=== PATIENT | male | born 1970 | race Caucasian/White ===

== ENCOUNTER 2016-09-14 22:03 | Observation (INO) | payer MEDICARE, OTHER ==
[2016-09-14] MEDS ORDERED: SODIUM CHLORIDE 0.9% 1,000 ML IV STA (22:44)
[2016-09-14] MEDS ORDERED: NITROGLYCERIN SL TABS 0.4 MG TAB SUBLINGUAL STA (22:44)
[2016-09-14] MEDS ORDERED: ASPIRIN 81 MG CHEW PO STA (22:44)
--- NOTE | 2016-09-14 22:48 | ED ---
Chest Pain HPI - General Chief Complaint: Chest Pain Stated Complaint: Chest Pain/BP up/ HR up Time Seen by Provider: 09/14/16 22:17 Source: patient, family, RN notes reviewed Mode of arrival: wheelchair Limitations: no limitations - History of Present Illness Initial Comments: This is a 46-year-old male with a history of hypertension who came in for evaluation for chest pain. He states that 6 days ago he had an episode where he woke up from sleep with pain between shoulder blades. He was seen by his doctor has some modification was medication. He states he had recurrence of this again today chest pain midsternal rate into his left arm and jaw and to his back between her shoulder blades. He states it was dull pressure-like. He states it was 8/10 in severity currently is 5-6/10. Some diaphoresis. No other complaints at this time no cough or phlegm production he states the pain he had last week it did increase with breathing tonight it does not change. He is a smoker he is down from one has to back today to 5 cigarettes a day we did discuss the benefits of stopping altogether. MD Complaint: chest pain, other - Related Data Home Medications Medication Instructions Recorded Confirmed Esomeprazole Magnesium 20 mg PO DAILY 11/07/14 09/14/16 buPROPion [Wellbutrin] 100 mg PO TID 11/07/14 09/14/16 Ibuprofen [Motrin] 600 mg PO Q8HR PRN 02/27/15 09/14/16 Febuxostat [Uloric] 40 mg PO DAILY 05/07/15 09/14/16 Asenapine Maleate [Saphris] 5 mg SUBLINGUAL HS 09/14/16 09/14/16 Allergies Allergy/AdvReac Type Severity Reaction Status Date / Time sertraline HCl [From Zoloft] Allergy Unknown Anaphylaxis Verified 09/14/16 23:20 fluoxetine HCl [From Prozac] AdvReac Intermediate disoriented, Verified 23:20 verbally violent Review of Systems ROS Statement: Those systems with pertinent positive or pertinent negative responses have been documented in the HPI. ROS Other: All systems not noted in ROS Statement are negative. EKG Findings - EKG Results: EKG: interpreted by DAKOTAH, sinus rhythm (Sinus rhythm rate 96 SC interval 152 QRS duration 98 daily since QTC 338/427 evidence a left exodeviation no acute ST -T wave elevation or depression seen at this time.) Past Medical History Past Medical History: Cancer, COPD, GERD/Reflux, Hyperlipidemia, Hypertension, Musculoskeletal Disorder, Osteoarthritis (OA), Sleep Apnea/CPAP/BIPAP Additional Past Medical History / Comment(s): s/p lumbar laminectomy decompression with fusion L4-S1. Other HX: coronary artery spasms, gout,pain in back,dizziness, hx. H pylori, hiatal hernia, skin cancer, fatty liver, doens' t use CPAP, occasional hand tremors, edentulous, occasional nausea. History of Any Multi-Drug Resistant Organisms: None Reported Past Surgical History: Back Surgery, Orthopedic Surgery Additional Past Surgical History / Comment(s): 05/15/15 Lumbar laminectomy with decompression and fusion L4-S1 with cell saver. 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 Past Drug Use History: None Reported - Past Family History Mother Family Medical History: Cancer, Deep Vein Thrombosis (DVT), Pulmonary Embolus Father Family Medical History: Cancer General Exam - General Exam Comments Initial Comments: This is a well-developed well-nourished awake alert oriented 3 male Limitations: no limitations General appearance: alert, anxious Head exam: Present: atraumatic, normocephalic, normal inspection Eye exam: Present: normal appearance, PERRL, EOMI. Absent: scleral icterus, conjunctival injection, periorbital swelling ENT exam: Present: normal exam, mucous membranes moist Neck exam: Present: normal inspection. Absent: tenderness, meningismus, lymphadenopathy Respiratory exam: Present: normal lung sounds bilaterally. Absent: respiratory distress, wheezes, rales, rhonchi, stridor Cardiovascular Exam: Present: normal rhythm, tachycardia, normal heart sounds. Absent: systolic murmur, diastolic murmur, rubs, gallop, clicks GI/Abdominal exam: Present: soft, normal bowel sounds. Absent: distended, tenderness, guarding, rebound, rigid Extremities exam: Present: normal inspection, full ROM, normal capillary refill. Absent: tenderness, pedal edema, joint swelling, calf tenderness Back exam: Present: normal inspection Neurological exam: Present: alert, oriented X3, CN II-XII intact Psychiatric exam: Present: normal affect, normal mood Skin exam: Present: warm, intact, normal color, diaphoretic. Absent: rash Course Vital Signs 09/14/16 09/14/16 09/14/16 22:13 22:39 23:39 Temperature 97.3 F L Pulse Rate 106 H 88 77 Respiratory 18 18 18 Rate Blood Pressure 133/83 145/88 123/84 O2 Sat by Pulse 98 98 97 Oximetry - Reevaluation(s) Reevaluation #1: 09/15/16 00:19 Reevaluation patient revealed he did get marked improvement with this chest pain after administration of medication. Chest Pain MDM - MDM Review the x-ray shows no acute findings. I did discuss the findings with the patient's family is feeling improved he will be admitted I did discuss case with Dr. Muro. Critical Care Time Critical Care Time: Yes Critical Care Time: 32 minutes of critical care time which includes initial monitoring of the patient with history physical lab and x-rays reevaluation the patient's response to therapy. Discussed with the patient family members discuss with the patient regarding smoking cessation. Discussion with the admitting physician and admission orders and documentation of the above. Disposition Clinical Impression: Unstable angina pectoris Disposition: ADMITTED IP TO THIS [facility] Condition: Stable
[2016-09-14 23:10] LABS: Basophils # (A) 0.1 k/uL (0-0.2); Basophils % (A) 1 %; CHCM 36.6; Eosinophils # (A) 0.2 k/uL (0-0.7); Eosinophils % (A) 2 %; HCT 42.1 % (39.0-53.0); HDW 2.92; HGB 14.7 gm/dL (13.0-17.5); Luc # (Auto) 0.09; Luc % (Auto) 1; Lymphocytes # (A) 2.1 k/uL (1.0-4.8); Lymphocytes % (A) 30 %; MCH 29.7 pg (25.0-35.0); MCV 85.1 fL (80.0-100.0); Mean Platelet Volume 8.8; Monocytes # (A) 0.4 k/uL (0-1.0); Monocytes % (A) 6 %; Neutrophils # (A) 4.2 k/uL (1.3-7.7); Neutrophils % (A) 59 %; RBC 4.95 m/uL (4.30-5.90); RDW 13.2 % (11.5-15.5); WBC 7.2 k/uL (3.8-10.6); WBC (Perox) 7.05
[2016-09-14 23:20] LABS: ALT 106 U/L (21-72); AST 51 U/L (17-59); Alkaline Phosphatase 151 U/L (38-126); Amylase <30 U/L (30-110); Anion Gap 13 mmol/L; Blood Urea Nitrogen 12 mg/dL (9-20); Calcium 9.5 mg/dL (8.4-10.2); Carbon Dioxide 23 mmol/L (22-30); Chloride 106 mmol/L (98-107); Glucose 107 mg/dL (74-99); Non-African American GFR(MDRD) >60 (>60 ml/min/1.73 sqM); Potassium 4.1 mmol/L (3.5-5.1); Sodium 142 mmol/L (137-145); Total Bilirubin 0.4 mg/dL (0.2-1.3); Total Protein 7.2 g/dL (6.3-8.2)
[2016-09-14 23:24] LABS: INR 0.9 (<1.1); Partial Thromboplastin Time 25.5 sec (22.0-30.0); Prothrombin Time 9.7 sec (9.0-12.0)
[2016-09-14 23:31] LABS: Creatine Kinase 61 U/L (55-170)
[2016-09-14] MEDS ORDERED: NITROGLYCERIN OINT 1 INCH/GM PACKET TOPICAL STA (23:35)
[2016-09-14] MEDS ORDERED: HEPARIN SODIUM,PORCINE 5,000 UNIT/ML 1 ML VIAL IV ONE (23:35)
[2016-09-14 23:43] LABS: Creatine Kinase MB 0.4 ng/mL (0.0-2.4); Troponin I <0.012 ng/mL (0.000-0.034)
[2016-09-14] MEDS ORDERED: HEPARIN SODIUM,PORCINE/D5W PMX 25,000 UNIT in DEXTROSE/WATER 1 500ML.BAG IV SCH (23:45)
--- NOTE | 2016-09-15 00:18 | XR ---
EXAMINATION TYPE: XR chest 2V DATE OF EXAM: 09/14/2016 11:21 PM COMPARISON: 11/07/2014 HISTORY: Chest pain hypertension tachycardia TECHNIQUE: Frontal and lateral views of the chest are obtained. FINDINGS: Mild pulmonary vascular congestion is suggested. There is no focal air space opacity, pleural effusion, or pneumothorax seen. The cardiac silhouette size is within normal limits. The osseous structures are intact. IMPRESSION: 1. Mild pulmonary vascular congestion. 2. No focal pneumonia.
[2016-09-15] MEDS ORDERED: NITROGLYCERIN SL TABS 0.4 MG TAB SUBLINGUAL PRN (00:20)
[2016-09-15] MEDS ORDERED: NICOTINE 14MG/24HR PATCH TRANSDERM STA (00:23)
[2016-09-15] MEDS ORDERED: SODIUM CHLORIDE 0.9% 1,000 ML IV SCH (00:30)
[2016-09-15] MEDS ORDERED: ONDANSETRON 4 MG/2 ML VIAL IVP PRN (00:49)
[2016-09-15 01:30] VITALS: BMI 24.3
[2016-09-15] MEDS: MORPHINE SULFATE 4 MG/ML SYRINGE IVP PRN ×2 (01:39→05:09)
[2016-09-15] MEDS ORDERED: LORazepam 1 MG TAB PO PRN (01:54)
[2016-09-15] MEDS ORDERED: ACETAMINOPHEN TAB 325 MG TAB PO PRN (03:36)
[2016-09-15] MEDS: NITROGLYCERIN OINT 1 INCH/GM PACKET TOPICAL SCH ×2 (05:19→17:05)
[2016-09-15 07:16] LABS: Creatine Kinase 50 U/L (55-170)
[2016-09-15 07:29] LABS: Creatine Kinase MB 0.5 ng/mL (0.0-2.4); Troponin I <0.012 ng/mL (0.000-0.034)
[2016-09-15 08:01] VITALS: RESP 18
--- NOTE | 2016-09-15 08:57 | P.HPIM ---
History of Present Illness H&P Date: 09/15/16 Chief Complaint: Substernal chest pressure. This is a 46-year-old white male who is a long-term smoker and has an underlying history of degenerative joint disease. Patient states after being started on lisinopril and Lipitor by cardiology last week, he had significant back pain in the middle night and has not tolerated this medication well. He is now stating significant chest pressure. He has been to the ER to evenings in a row. When a long discussion regarding smoking cessation. However, he is now admitted for significant chest pressure. No radiation of pain but the pain is clearly evident when it occurs at a high level. Does not complain of shortness of breath no nausea or stated diaphoresis. The patient has an underlying history of chronic DJD of the lumbar spine and has had laminectomy twice. Family history significant for premature heart disease in his parents and 1 sister. Review of Systems Constitutional: Denies chills, Denies fatigue, Denies fever Ears, nose, mouth and throat: Denies headache, Denies sore throat Cardiovascular: Reports chest pain, Denies leg edema Respiratory: Denies cough Gastrointestinal: Denies abdominal pain, Denies diarrhea, Denies nausea, Denies vomiting Musculoskeletal: Denies myalgias Integumentary: Denies pruritus, Denies rash Neurological: Denies numbness, Denies weakness Past Medical History Past Medical History: Cancer, COPD, GERD/Reflux, Hyperlipidemia, Hypertension, Musculoskeletal Disorder, Osteoarthritis (OA), Sleep Apnea/CPAP/BIPAP Additional Past Medical History / Comment(s): s/p lumbar laminectomy decompression with fusion L4-S1. Other HX: coronary artery spasms, gout,pain in back,dizziness, hx. H pylori, hiatal hernia, skin cancer, fatty liver, doens' t use CPAP, occasional hand tremors, edentulous, occasional nausea. History of Any Multi-Drug Resistant Organisms: None Reported Past Surgical History: Back Surgery, Orthopedic Surgery Additional Past Surgical History / Comment(s): 05/15/15 Lumbar laminectomy with decompression and fusion L4-S1 with cell saver. 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 Past Drug Use History: None Reported - Past Family History Mother Family Medical History: Cancer, Deep Vein Thrombosis (DVT), Pulmonary Embolus Additional Family Medical History / Comment(s): Skin ca Father Family Medical History: Cancer Additional Family Medical History / Comment(s): Bone CA Medications and Allergies Home Medications Medication Instructions Recorded Confirmed Type RX: Esomeprazole Magnesium 20 mg PO DAILY 11/07/14 09/15/16 History buPROPion [Wellbutrin] 100 mg PO TID 11/07/14 09/15/16 History Ibuprofen [Motrin] 600 mg PO Q8HR PRN 02/27/15 09/15/16 History Febuxostat [Uloric] 40 mg PO DAILY 05/07/15 09/15/16 History Asenapine Maleate [Saphris] 5 mg SUBLINGUAL HS 09/14/16 09/15/16 History Allergies Allergy/AdvReac Type Severity Reaction Status Date / Time sertraline HCl [From Zoloft] Allergy Unknown Anaphylaxis Verified 09/15/16 01:17 fluoxetine HCl [From Prozac] AdvReac Intermediate disoriented, Verified 01:17 verbally violent Physical Exam Vitals: Vital Signs Temp Pulse Pulse Resp BP BP Pulse Ox 09/15/16 08:00 98.4 F 76 18 149/92 96 09/15/16 04:00 97.7 F 72 16 140/84 96 09/15/16 03:42 16 09/15/16 02:10 16 09/15/16 01:20 97.9 F 70 16 126/68 96 09/15/16 00:39 97.5 F L 73 18 117/78 97 Intake and Output 09/14/16 09/15/16 09/15/16 22:59 06:59 14:59 Other: # Voids 2 Weight 72.5 kg - Constitutional General appearance: thin - EENT Eyes: EOMI - Neck Neck: no lymphadenopathy - Cardiovascular Rhythm: regular Heart sounds: normal: S1, S2 - Gastrointestinal General gastrointestinal: soft, no tenderness - Neurologic Neurologic: CNII-XII intact, focal deficits - Musculoskeletal Musculoskeletal: gait normal - Psychiatric Psychiatric: A&O x's 3, appropriate affect Results CBC & Chem 7: 09/14/16 22:40 09/14/16 22:40 Labs: Abnormal Lab Results - Last 24 Hours (Table) 09/15/16 09/15/16 Range/Units 06:35 06:35 APTT 31.2 H (22.0-30.0) sec Total Creatine Kinase 50 L (55-170) U/L Thrombosis Risk Factor Assmnt - Choose All That Apply Each Factor Represents 1 point: Age 41-60 years Thrombosis Risk Factor Assessment Total Risk Factor Score: 1 Thrombosis Risk Factor Assessment Level: Low Risk Assessment and Plan (1) Tobacco abuse Status: Acute (2) Hypertension Status: Acute (3) Unstable angina pectoris Status: Acute (4) Disc degeneration, lumbar Status: Acute Plan: 1. Rule out myocardial infarction. 2. Smoking cessation discussed at length with the patient. 3. Restart home medications. 4. History of reflux esophagitis 5. Cardiology consulted. Probable stress testing done later today. 6. Reconcile medications otherwise. Time with Patient: Less than 30
[2016-09-15] MEDS ORDERED: ALLOPURINOL 100 MG TAB PO SCH (09:00)
[2016-09-15] MEDS ORDERED: PANTOPRAZOLE 40 MG TABLET PO SCH (09:00)
[2016-09-15] MEDS ORDERED: DOBUTamine DRIP for NUC MED 500 MG in DEXTROSE/WATER 1 250ML.BAG IV ONE (09:21)
[2016-09-15] MEDS ORDERED: LISINOPRIL 10 MG TAB PO STA (09:23)
--- NOTE | 2016-09-15 09:44 | CONS ---
DATE OF CONSULTATION: Mr. Newell is a 46-year-old male patient who has had recurrent mid-back and anterior chest discomfort repeatedly for the last one week. He has been in the ER several times, finally he was admitted and so far his cardiac enzymes x2 have been normal. His ECG does not show any clear-cut evidence for ischemia. He continues to have discomfort in the upper mid-back and anterior chest. He was recently prescribed lisinopril for hypertension and also atorvastatin. REVIEW OF SYSTEMS: No fever, chills, rigors. No cough or expectoration. No nausea, vomiting and diarrhea. No hematuria, or dysuria. No strokes or seizures. No skin lesions or musculoskeletal complaints. Allergies to SERTRALINE and FLUOXETINE. His medications at home are proton pump inhibitor, Bupropion. ( ) dose of lisinopril and atorvastatin. On examination, his blood pressure is 149/92 mmHg and the pulse rate is in the 70s. He is afebrile. Head and neck examination are normal. Heart sounds are normal. Lungs are clear to auscultation. Extremities are warm. No edema. IMPRESSION: 1. Atypical chest discomfort, recurrent with normal cardiac enzymes. 2. Hypertension. 3. Dyslipidemia. SUGGEST: Start lisinopril 10 mg p.o. daily. Hold atorvastatin for now and dobutamine stress echo. His chest x-ray did not show any evidence for mediastinal widening. If his stress test was normal and he continues to have recurrent chest discomfort, one should consider a CT of the chest. I have also advised him to take lisinopril only and hold off on atorvastatin just to make sure he does not have any unusual reactions from lisinopril. In followup, he will see Dr. Idalia Ceja.
[2016-09-15 11:44] VITALS: BP 142/91; PULSE 98; TEMP 97.8
[2016-09-15 11:55] LABS: Creatine Kinase 54 U/L (55-170)
--- NOTE | 2016-09-15 11:56 | ECHOS ---
DATE OF SERVICE: 09/15/2015 AGE: 46Y SEX: M HT: 68" WT: 159 lbs. Protocol Yasmany: Others: Dobutamine Stress Echo Stage: 4 Dur. of Exercise: 11 minutes *Heart Rate Blood Pressure *Rest: 65 Rest: 126/70 * *Max. Achieved: 150 Maximum BP: 163/85 85% PMHR: 148 100% PMHR: 174 *METS: - INDICATIONS: Unstable angina. MEDICATIONS: Lisinopril, Ibuprofen, esomeprazole. The test is being done to evaluate cardiac status. STRESS DATA: Baseline EKG showed a sinus rhythm with normal OR interval and QRS duration. Blood pressure at rest is 126/70 with a pulse rate of 65. A standard dose of dobutamine was initiated and titrated to maximum of 40 mcg achieving a maximum heart rate of 150 with blood pressure of 163/85. At peak infusion, patient developed brief episodes of nonsustained V. tach which resolved with discontinuation of dobutamine. Patient did not experience any chest pain. ECHO DATA: Baseline echo images show normal wall motion and thickening. Echo images taken at low-dose and high dose of dobutamine showed augmentation of the wall motion and thickening in all the segments. FINAL IMPRESSION: 1. Negative dobutamine stress test. 2. Negative dobutamine stress echo. 3. Ventricular arrhythmias induced by dobutamine. This resolved after discontinuation of dobutamine.
[2016-09-15 12:09] LABS: Creatine Kinase MB 0.8 ng/mL (0.0-2.4); Troponin I <0.012 ng/mL (0.000-0.034)
[2016-09-15] MEDS ORDERED: RX INFO: IV CONTRAST WAS GIVEN 1 EACH MISC MISCELLANE PRN (14:12)
--- NOTE | 2016-09-15 15:18 | CT ---
EXAMINATION TYPE: CT angio chest DATE OF EXAM: 09/15/2016 3:02 PM COMPARISON: CT chest March 12, 2014 HISTORY: Chest pain and shortness of breath. Rule out aortic dissection. CT DLP: 364.60 mGycm. Automated Exposure Control for Dose Reduction was Utilized. CONTRAST: CTA scan of the thorax is performed without and with IV Contrast, patient injected with 100 mL of Omn ipaque 350, pulmonary embolism protocol. Three-D reconstructed images are created on independent work station and reviewed. FINDINGS: LUNGS: Dependent atelectatic change is seen in both lower lobes. There is additional linear scarring and/or atelectasis in both lung bases, left greater than right. No concerning parenchymal nodule or m ass is present bilaterally. No pleural effusion or pneumothorax is seen bilaterally. Tracheobronchial tree is patent. MEDIASTINUM: There is satisfactory enhancement of the pulmonary artery and its branches, there is no CT evidence for pulmonary embolism. There are no greater than 1 cm hilar or mediastinal lymph nodes. No significant pericardial effusion is seen. There is mild cardiomegaly. No linear hypodensity to suggest aortic dissection is seen. Ascending aorta measures up to 3.1 cm in diameter. Ascending thora cic aorta measures 2.2 cm in diameter. OTHER: There is partial visualization of somewhat prominent spleen. Slight underlying scoliotic curva ture is present. There is mild multilevel spurring in the thoracic spine. Small degree of bilateral g ynecomastia is felt present on axial image 30 IMPRESSION: 1. No CTA evidence for aortic aneurysm or dissection. 2. Mild cardiomegaly without suspicious acute pulmonary process. 3. Cannot exclude splenomegaly, consider ultrasound follow-up based on clinical and physical exam cor relation.
[2016-09-15] MEDS ORDERED: SODIUM CHLORIDE 0.9% 500 ML IV ONE (16:29)
[2016-09-15] MEDS: buPROPion 100 MG TAB PO SCH (17:05)
[2016-09-15] MEDS ORDERED: ASENAPINE 5 MG TAB SUBLINGUAL SCH (21:00)
[2016-09-16] MEDS ORDERED: ASPIRIN 325 MG TAB PO SCH (09:00)
--- NOTE | 2016-11-07 21:39 | P.DS ---
Providers Date of admission: 09/15/16 00:20 Attending physician: Lang Muro Primary care physician: Lang Muro - Discharge Diagnosis(es) (1) Tobacco abuse Status: Acute (2) Hypertension Status: Acute (3) Unstable angina pectoris Status: Acute (4) Disc degeneration, lumbar Status: Acute Hospital Course: The patient is a 46-year-old white male essentially admitted for chest pain. The patient had appropriate stress testing which did not show significant issue. Cardiology was consulted and he was appropriately discharged in stable condition to follow up with me in about 5-7 days. Patient Condition at Discharge: Stable Plan - Discharge Summary Discharge Medication List Esomeprazole Magnesium 20 mg PO DAILY 11/07/14 [History] buPROPion [Wellbutrin] 100 mg PO TID 11/07/14 [History] Ibuprofen [Motrin] 600 mg PO Q8HR PRN 02/27/15 [History] Febuxostat [Uloric] 40 mg PO DAILY 05/07/15 [History] Asenapine Maleate [Saphris] 5 mg SUBLINGUAL HS 09/14/16 [History] Follow up Appointment(s)/Referral(s): Lang Muro MD [Primary Care Provider] - 1 Week Patient Instructions/Handouts: Chest Pain (DC) Discharge Disposition: HOME SELF-CARE
== END 2016-09-15 17:08 | disposition home or self-care (01) ==
LOC: EC 22:03 → 3OBS 09-15 00:20
PROVIDERS: ADMIT Family Medicine; ATTEND Family Medicine
DX: R07.89 Other chest pain (principal); I10 Essential (primary) hypertension; E78.5 Hyperlipidemia, unspecified; F20.9 Schizophrenia, unspecified; F32.9 Major depressive disorder, single episode, unspecified; F41.9 Anxiety disorder, unspecified; G47.30 Sleep apnea, unspecified; I20.0 Unstable angina; J44.9 Chronic obstructive pulmonary disease, unspecified; K21.9 Gastro-esophageal reflux disease without esophagitis; M10.9 Gout, unspecified; M51.36 Other intervertebral disc degeneration, lumbar region; Z91.19 Patient's noncompliance with other medical treatment and regimen; F17.210 Nicotine dependence, cigarettes, uncomplicated; Z88.8 Allergy status to other drugs, medicaments and biological substances; Z79.899 Other long term (current) drug therapy; Z79.1 Long term (current) use of non-steroidal anti-inflammatories (NSAID)
CPT/HCPCS: 36415; 93017; 93350; 85379; 83880; 80053; 82150; 82550 ×2; 82553 ×2; 83690; 83735; 84484 ×2; 85025; 85610; 85730 ×2; 71020; 71275; 99291; 96365; 96361; 96376; 96375; G0378; S4990; J1250; J2270; J1644 ×2; Q9967; J2405; 93005; 96366

== ENCOUNTER 2016-11-13 12:54 | Emergency (ER) | payer MEDICARE, OTHER ==
[2016-11-13] MEDS ORDERED: SODIUM CHLORIDE 0.9% 1,000 ML IV STA (13:06)
[2016-11-13] MEDS ORDERED: ASPIRIN 81 MG CHEW PO STA (13:06)
[2016-11-13] MEDS ORDERED: ceFAZolin 2 GM in SODIUM CHLORIDE 0.9% 100 ML IVPB STA (13:30)
[2016-11-13] MEDS ORDERED: DIPH,PERTUS(ACELL)TETVAC-LF 0.5 ML VIAL IM ONE (13:30)
[2016-11-13 13:41] LABS: Basophils % (A) 0 %; CH 31.2; Eosinophils # (A) 0.1 k/uL (0-0.7); Eosinophils % (A) 1 %; HGB 14.9 gm/dL (13.0-17.5); Luc # (Auto) 0.13; Luc % (Auto) 2; Lymphocytes # (A) 1.1 k/uL (1.0-4.8); Lymphocytes % (A) 15 %; MCH 30.1 pg (25.0-35.0); MCHC 34.5 g/dL (31.0-37.0); Mean Platelet Volume 7.6; Monocytes # (A) 0.3 k/uL (0-1.0); Monocytes % (A) 3 %; Neutrophils % (A) 79 %; RBC 4.94 m/uL (4.30-5.90); RDW 13.4 % (11.5-15.5); WBC 7.6 k/uL (3.8-10.6)
[2016-11-13 13:58] LABS: Appearance,Urine Clear (Clear); Bilirubin,Urine Negative (Negative); Glucose,Urine (UA) Negative (Negative); Ketones,Urine Negative (Negative); Leukocyte Esterase,Urine Negative (Negative); Nitrite,Urine Negative (Negative); Protein,Urine Negative (Negative); Specific Gravity,Urine 1.001 (1.001-1.035); UA Billing (MACRO vs. MICRO) CHEM; Urobilinogen,Urine <2.0 mg/dL (<2.0)
[2016-11-13 14:01] LABS: ALT 102 U/L (21-72); AST 44 U/L (17-59); Alcohol <10 mg/dL; Alkaline Phosphatase 164 U/L (38-126); Anion Gap 11 mmol/L; Blood Urea Nitrogen 11 mg/dL (9-20); Carbon Dioxide 24 mmol/L (22-30); Chloride 103 mmol/L (98-107); Glucose 101 mg/dL (74-99); Magnesium 1.8 mg/dL (1.6-2.3); Non-African American GFR(MDRD) >60 (>60 ml/min/1.73 sqM); Potassium 4.5 mmol/L (3.5-5.1); Sodium 138 mmol/L (137-145); Total Bilirubin 0.7 mg/dL (0.2-1.3); Total Protein 7.6 g/dL (6.3-8.2)
[2016-11-13 14:02] LABS: Partial Thromboplastin Time 25.7 sec (22.0-30.0); Prothrombin Time 10.2 sec (9.0-12.0)
[2016-11-13 14:30] VITALS: RESP 16
--- NOTE | 2016-11-13 14:51 | ED ---
Chest Pain HPI - General Chief Complaint: Chest Pain Stated Complaint: CHEST PAIN Time Seen by Provider: 11/13/16 13:01 Source: patient Mode of arrival: wheelchair Limitations: no limitations - History of Present Illness Initial Comments: Patient complains of chest pain. Pain is in the middle of the chest. Nothing makes it better or worse. He wasn't doing anything when the pain began. Patient had a recent admission for chest pain. He had a workup at that time including stress test, which was negative. He has no pain or swelling the legs. He has no palpitations. He has no weakness or trouble walking. He has no lightheadedness or dizziness. He has taken no medication for the chest pain. - Related Data Home Medications Medication Instructions Recorded Confirmed Esomeprazole Magnesium 20 mg PO DAILY 11/07/14 11/13/16 buPROPion [Wellbutrin] 100 mg PO BID 11/07/14 11/13/16 Ibuprofen [Motrin] 600 mg PO Q8HR PRN 02/27/15 11/13/16 ALPRAZolam [Xanax] 0.5 mg PO BID PRN 11/13/16 11/13/16 Aspirin EC [Ecotrin Low Dose] 81 mg PO DAILY 11/13/16 11/13/16 Nitroglycerin Sl Tabs [Nitrostat] 0.4 mg SUBLINGUAL Q5M PRN 11/13/16 11/13/16 Allergies Allergy/AdvReac Type Severity Reaction Status Date / Time sertraline HCl [From Zoloft] Allergy Unknown Anaphylaxis Verified 11/13/16 14:23 fluoxetine HCl [From Prozac] AdvReac Intermediate Disoriented, Verified 14:23 Verbally Violent venlafaxine [From Effexor] AdvReac Nausea Verified 11/13/16 14:23 Review of Systems ROS Statement: Those systems with pertinent positive or pertinent negative responses have been documented in the HPI. ROS Other: All systems not noted in ROS Statement are negative. EKG Findings - EKG Comments: EKG Findings:: Twelve-lead EKG is obtained, interpreted by me showing ventricular rate 75 bpm, normal VT interval and QRS complex, no ST elevation or depression, interpreted by me as normal sinus rhythm. Past Medical History Past Medical History: Cancer, COPD, GERD/Reflux, Hyperlipidemia, Hypertension, Musculoskeletal Disorder, Osteoarthritis (OA), Sleep Apnea/CPAP/BIPAP Additional Past Medical History / Comment(s): s/p lumbar laminectomy decompression with fusion L4-S1. Other HX: coronary artery spasms, gout,pain in back,dizziness, hx. H pylori, hiatal hernia, skin cancer, fatty liver, doens' t use CPAP, occasional hand tremors, edentulous, occasional nausea. History of Any Multi-Drug Resistant Organisms: None Reported Past Surgical History: Back Surgery, Orthopedic Surgery Additional Past Surgical History / Comment(s): 05/15/15 Lumbar laminectomy with decompression and fusion L4-S1 with cell saver. 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 Past Drug Use History: None Reported - Past Family History Mother Family Medical History: Cancer, Deep Vein Thrombosis (DVT), Pulmonary Embolus Additional Family Medical History / Comment(s): Skin ca Father Family Medical History: Cancer Additional Family Medical History / Comment(s): Bone CA General Exam Limitations: no limitations General appearance: alert, in no apparent distress Head exam: Present: atraumatic, normocephalic, normal inspection Eye exam: Present: normal appearance, PERRL, EOMI. Absent: scleral icterus, conjunctival injection, periorbital swelling ENT exam: Present: normal exam, mucous membranes moist Neck exam: Present: normal inspection. Absent: tenderness, meningismus, lymphadenopathy Respiratory exam: Present: normal lung sounds bilaterally. Absent: respiratory distress, wheezes, rales, rhonchi, stridor Cardiovascular Exam: Present: regular rate, normal rhythm, normal heart sounds. Absent: systolic murmur, diastolic murmur, rubs, gallop, clicks GI/Abdominal exam: Present: soft, normal bowel sounds. Absent: distended, tenderness, guarding, rebound, rigid Extremities exam: Present: normal inspection, full ROM, normal capillary refill. Absent: tenderness, pedal edema, joint swelling, calf tenderness Back exam: Present: normal inspection Neurological exam: Present: alert, oriented X3, CN II-XII intact Psychiatric exam: Present: normal affect, normal mood Skin exam: Present: warm, dry, intact, normal color. Absent: rash Course Vital Signs 11/13/16 11/13/16 11/13/16 12:56 13:38 14:27 Temperature 97.0 F L Pulse Rate 87 88 72 Respiratory 16 18 16 Rate Blood Pressure 141/85 155/90 136/86 O2 Sat by Pulse 100 99 100 Oximetry Chest Pain MDM - [facility] Patient complains of chest pain. He had a recent workup which was negative. Laboratory studies today are negative. His chest x-rays clear. His EKG is unremarkable. I do not believe there is any evidence of an acute emergency condition at this time. He does not require repeating of his entire workup which was just done. He is stable for discharge. Disposition Clinical Impression: Chest pain Disposition: HOME SELF-CARE Condition: Good Instructions: Chest Pain (ED) Time of Disposition: 14:51
[2016-11-13 15:05] VITALS: BP 138/64; PULSE 67; TEMP 97.5
--- NOTE | 2016-11-13 15:41 | XR ---
EXAMINATION TYPE: XR chest 2V DATE OF EXAM: 11/13/2016 2:13 PM HISTORY: Chest Pain. REFERENCE: Previous study dated 09/14/2016. FINDINGS: The lungs are clear. Pleural spaces are clear. Heart size is upper limits of normal. IMPRESSION: NO ACUTE INTRATHORACIC ABNORMALITY.
== END 2016-11-13 15:05 | disposition home or self-care (01) ==
LOC: EC 12:54
DX: R07.9 Chest pain, unspecified (principal); F17.200 Nicotine dependence, unspecified, uncomplicated; F32.9 Major depressive disorder, single episode, unspecified; K21.9 Gastro-esophageal reflux disease without esophagitis; Z85.9 Personal history of malignant neoplasm, unspecified; Z88.8 Allergy status to other drugs, medicaments and biological substances; Z79.899 Other long term (current) drug therapy
CPT/HCPCS: 36415; 71020; 80053; 80306; 80320; 81003; 83735; 83880; 84484; 85025; 85610; 85730; 93005; 96360; 99285

== ENCOUNTER → 2018-02-13 | Outpatient (CLI) | payer MEDICARE, OTHER ==
[2018-02-13 14:00] LABS: ALT 65 U/L (21-72); AST 32 U/L (17-59); Cholesterol 230 mg/dL (<200); Creatine Kinase 96 U/L (55-170); HDL Cholesterol 35 mg/dL (40-60)
[2018-02-13 14:11] LABS: Triglycerides 539 mg/dL (<150)
== END | disposition home or self-care (01) ==
LOC: LABWHC1 11:53
PROVIDERS: ATTEND Internal Medicine Interventional Cardiology
DX: E78.5 Hyperlipidemia, unspecified (principal)
CPT/HCPCS: 36415; 80061; 82550; 84450; 84460

== ENCOUNTER 2018-05-01 14:11 | Observation (INO) | payer MEDICARE, OTHER ==
[2018-05-01] MEDS ORDERED: NITROGLYCERIN OINT 1 INCH/GM PACKET TOPICAL STA (14:38)
[2018-05-01] MEDS ORDERED: ASPIRIN 81 MG PO STA (14:38)
--- NOTE | 2018-05-01 14:40 | ED ---
General Adult HPI - General Chief complaint: Chest Pain Stated complaint: chest pain/cough Time Seen by Provider: 05/01/18 14:15 Source: patient, RN notes reviewed Mode of arrival: wheelchair Limitations: no limitations - History of Present Illness Initial comments: Is a 48-year-old male resents to the emergency department with past history of high blood pressure high cholesterol and a smoking history. Patient comes in today because he started having chest pain a few hours ago that radiates to his left arm is also very short of breath. Patient states she's also had a little bit of a cough lately but no fever chills or sputum production. Patient states he has had a after sensation in the past many years ago and they did not find any significant disease at that time. Patient states this chest pain feels like pressure in his chest. Patient denies any abdominal pain patient denies any vomiting or diarrhea. Patient denies any headache patient denies numbness weakness. Patient denies any lightheadedness dizziness or near syncopal episode. - Related Data Home Medications Medication Instructions Recorded Confirmed ALPRAZolam [Xanax] 0.5 mg PO BID PRN 11/13/16 05/01/18 Ibuprofen [Motrin] 800 mg PO TID PRN 05/01/18 05/01/18 Zolpidem [Ambien] 10 mg PO HS PRN 05/01/18 05/01/18 buPROPion HCL [Wellbutrin XL] 300 mg PO DAILY 05/01/18 05/01/18 cloNIDine HCL [Catapres] 0.1 mg PO BID 05/01/18 05/01/18 Allergies Allergy/AdvReac Type Severity Reaction Status Date / Time sertraline HCl [From Zoloft] Allergy Unknown Anaphylaxis Verified 05/01/18 15:41 fluoxetine HCl [From Prozac] AdvReac Intermediate Disoriented, Verified 15:41 Verbally Violent rosuvastatin [From Crestor] AdvReac Confusion Verified 05/01/18 15:41 venlafaxine [From Effexor] AdvReac Nausea Verified 05/01/18 15:41 Review of Systems ROS Statement: Those systems with pertinent positive or pertinent negative responses have been documented in the HPI. ROS Other: All systems not noted in ROS Statement are negative. Past Medical History Past Medical History: Cancer, COPD, GERD/Reflux, Hyperlipidemia, Hypertension, Musculoskeletal Disorder, Osteoarthritis (OA), Sleep Apnea/CPAP/BIPAP Additional Past Medical History / Comment(s): s/p lumbar laminectomy decompression with fusion L4-S1. Other HX: coronary artery spasms, gout,pain in back,dizziness, hx. H pylori, hiatal hernia, skin cancer, fatty liver, doens' t use CPAP, occasional hand tremors, edentulous, occasional nausea. History of Any Multi-Drug Resistant Organisms: None Reported Past Surgical History: Back Surgery, Orthopedic Surgery Additional Past Surgical History / Comment(s): 05/15/15 Lumbar laminectomy with decompression and fusion L4-S1 with cell saver. Other SX: L carpal tunnel surg., EGD biopsy of stomach for Hpylori Past Anesthesia/Blood Transfusion Reactions: Previous Problems w/ Anesthesia Additional Past Anesthesia/Blood Transfusion Reaction / Comment(s): slow to wake up w/anesthesia Past Psychological History: Anxiety, Depression, Schizophrenia Smoking Status: Current every day smoker Past Alcohol Use History: None Reported Past Drug Use History: None Reported - Past Family History Mother Family Medical History: Cancer, Deep Vein Thrombosis (DVT), Pulmonary Embolus Additional Family Medical History / Comment(s): Skin ca Father Family Medical History: Cancer Additional Family Medical History / Comment(s): Bone CA General Exam - General Exam Comments Initial Comments: GENERAL: Patient is well-developed and well-nourished. Patient is nontoxic and well- hydrated and is in mild distress. ENT: Neck is soft and supple. No significant lymphadenopathy is noted. Oropharynx is clear. Moist mucous membranes. Neck has full range of motion without eliciting any pain. EYES: The sclera were anicteric and conjunctiva were pink and moist. Extraocular movements were intact and pupils were equal round and reactive to light. Eyelids were unremarkable. PULMONARY: Unlabored respirations. Good breath sounds bilaterally. No audible rales rhonchi or wheezing was noted. CARDIOVASCULAR: There is a regular rate and rhythm without any murmurs gallops or rubs. ABDOMEN: Soft and nontender with normal bowel sounds. No palpable organomegaly was noted. There is no palpable pulsatile mass. SKIN: Skin is clear with no lesions or rashes and otherwise unremarkable. NEUROLOGIC: Patient is alert and oriented x3. Cranial nerves II through XII are grossly intact. Motor and sensory are also intact. Normal speech, volume and content. Symmetrical smile. MUSCULOSKELETAL: Normal extremities with adequate strength and full range of motion. No lower extremity swelling or edema. No calf tenderness. LYMPHATICS: No significant lymphadenopathy is noted PSYCHIATRIC: Normal psychiatric evaluation. Normal interpersonal interactions appears functionally intact in deals appropriately with others. No signs of depression. No signs of anxiety. Limitations: no limitations Course Vital Signs 05/01/18 14:20 Temperature 98.3 F Pulse Rate 80 Respiratory 18 Rate Blood Pressure 107/50 O2 Sat by Pulse 99 Oximetry Medical Decision Making - Medical Decision Making EKG shows a normal sinus rhythm at 76 bpm WA interval 148 QRS 96 QT interval 352 QTC is 396. Patient's EKG shows no ST segment elevation or depression or T wave abnormalities are noted. Chest x-ray shows no acute abnormality. Patient was placed on heparin because the unstable angina. I spoke with Dr. Muro agreed to admit the patient admitted the patient I consult cardiology continued heparin Nitropaste and aspirin on the floor. - Lab Data Result diagrams: 05/01/18 14:53 05/01/18 14:53 Lab Results 05/01/18 05/01/18 05/01/18 Range/Units 14:53 14:53 14:53 WBC 7.2 (3.8-10.6) k/uL RBC 5.19 (4.30-5.90) m/uL Hgb 15.6 (13.0-17.5) gm/dL Hct 45.4 (39.0-53.0) % MCV 87.4 (80.0-100.0) fL MCH 30.1 (25.0-35.0) pg MCHC 34.5 (31.0-37.0) g/dL RDW 13.3 (11.5-15.5) % Plt Count 210 (150-450) k/uL Neutrophils % 72 % Lymphocytes % 20 % Monocytes % 4 % Eosinophils % 2 % Basophils % 1 % Neutrophils # 5.1 (1.3-7.7) k/uL Lymphocytes # 1.4 (1.0-4.8) k/uL Monocytes # 0.3 (0-1.0) k/uL Eosinophils # 0.1 (0-0.7) k/uL Basophils # 0.0 (0-0.2) k/uL PT (9.0-12.0) sec INR (<1.2) APTT (22.0-30.0) sec Sodium 141 (137-145) mmol/L Potassium 4.4 (3.5-5.1) mmol/L Chloride 106 (98-107) mmol/L Carbon Dioxide 24 (22-30) mmol/L Anion Gap 11 mmol/L BUN 16 (9-20) mg/dL Creatinine 0.91 (0.66-1.25) mg/dL Est GFR (CKD-EPI)AfAm >90 (>60 ml/min/1.73 sqM) Est GFR (CKD-EPI)NonAf >90 (>60 ml/min/1.73 sqM) Glucose 100 H (74-99) mg/dL Calcium 9.8 (8.4-10.2) mg/dL Magnesium 2.0 (1.6-2.3) mg/dL Total Bilirubin 0.4 (0.2-1.3) mg/dL AST 51 (17-59) U/L ALT 67 (21-72) U/L Alkaline Phosphatase 109 (38-126) U/L Total Creatine Kinase 70 (55-170) U/L CK-MB (CK-2) 1.0 (0.0-2.4) ng/mL CK-MB (CK-2) Rel Index 1.4 Troponin I <0.012 (0.000-0.034) ng/mL Total Protein 7.6 (6.3-8.2) g/dL Albumin 4.5 (3.5-5.0) g/dL 05/01/18 Range/Units 14:53 WBC (3.8-10.6) k/uL RBC (4.30-5.90) m/uL Hgb (13.0-17.5) gm/dL Hct (39.0-53.0) % MCV (80.0-100.0) fL MCH (25.0-35.0) pg MCHC (31.0-37.0) g/dL RDW (11.5-15.5) % Plt Count (150-450) k/uL Neutrophils % % Lymphocytes % % Monocytes % % Eosinophils % % Basophils % % Neutrophils # (1.3-7.7) k/uL Lymphocytes # (1.0-4.8) k/uL Monocytes # (0-1.0) k/uL Eosinophils # (0-0.7) k/uL Basophils # (0-0.2) k/uL PT 9.7 (9.0-12.0) sec INR 1.0 (<1.2) APTT 25.5 (22.0-30.0) sec Sodium (137-145) mmol/L Potassium (3.5-5.1) mmol/L Chloride (98-107) mmol/L Carbon Dioxide (22-30) mmol/L Anion Gap mmol/L BUN (9-20) mg/dL Creatinine (0.66-1.25) mg/dL Est GFR (CKD-EPI)AfAm (>60 ml/min/1.73 sqM) Est GFR (CKD-EPI)NonAf (>60 ml/min/1.73 sqM) Glucose (74-99) mg/dL Calcium (8.4-10.2) mg/dL Magnesium (1.6-2.3) mg/dL Total Bilirubin (0.2-1.3) mg/dL AST (17-59) U/L ALT (21-72) U/L Alkaline Phosphatase (38-126) U/L Total Creatine Kinase (55-170) U/L CK-MB (CK-2) (0.0-2.4) ng/mL CK-MB (CK-2) Rel Index Troponin I (0.000-0.034) ng/mL Total Protein (6.3-8.2) g/dL Albumin (3.5-5.0) g/dL Critical Care Time Critical Care Time: Yes Total Critical Care Time: 35 Disposition Clinical Impression: Unstable angina Disposition: ADMITTED IP TO THIS HOSP Referrals: Lang Muro MD [Primary Care Provider] - 1-2 days Time of Disposition: 16:49
[2018-05-01 15:09] LABS: Basophils % (A) 1 %; Eosinophils # (A) 0.1 k/uL (0-0.7); Eosinophils % (A) 2 %; HCT 45.4 % (39.0-53.0); HGB 15.6 gm/dL (13.0-17.5); Lymphocytes # (A) 1.4 k/uL (1.0-4.8); Lymphocytes % (A) 20 %; MCH 30.1 pg (25.0-35.0); MCHC 34.5 g/dL (31.0-37.0); MCV 87.4 fL (80.0-100.0); Mean Platelet Volume 7.6; Monocytes # (A) 0.3 k/uL (0-1.0); Monocytes % (A) 4 %; Neutrophils # (A) 5.1 k/uL (1.3-7.7); Neutrophils % (A) 72 %; Platelet Count 210 k/uL (150-450); RBC 5.19 m/uL (4.30-5.90); RDW 13.3 % (11.5-15.5); WBC 7.2 k/uL (3.8-10.6)
[2018-05-01 15:14] LABS: Partial Thromboplastin Time 25.5 sec (22.0-30.0); Prothrombin Time 9.7 sec (9.0-12.0)
[2018-05-01 15:20] LABS: ALT 67 U/L (21-72); AST 51 U/L (17-59); Albumin 4.5 g/dL (3.5-5.0); Alkaline Phosphatase 109 U/L (38-126); Anion Gap 11 mmol/L; Blood Urea Nitrogen 16 mg/dL (9-20); Calcium 9.8 mg/dL (8.4-10.2); Carbon Dioxide 24 mmol/L (22-30); Chloride 106 mmol/L (98-107); Glucose 100 mg/dL (74-99); Potassium 4.4 mmol/L (3.5-5.1); Sodium 141 mmol/L (137-145); Total Bilirubin 0.4 mg/dL (0.2-1.3); Total Protein 7.6 g/dL (6.3-8.2)
--- NOTE | 2018-05-01 15:23 | XR ---
EXAMINATION TYPE: XR chest 2V DATE OF EXAM: 05/01/2018 COMPARISON: 11/13/2016 HISTORY: 48-year-old male with chest pain TECHNIQUE: Frontal and lateral views FINDINGS: The cardiomediastinal silhouette, aorta, and pulmonary vasculature are within normal limits. Mild dif fuse interstitial prominence. Lungs and pleural spaces are clear. IMPRESSION: Chronic changes without acute cardiopulmonary process.
[2018-05-01 15:30] LABS: Creatine Kinase 70 U/L (55-170)
[2018-05-01 15:43] LABS: Troponin I <0.012 ng/mL (0.000-0.034)
[2018-05-01] MEDS ORDERED: HEPARIN SOD,PORK IN 0.45% NACL 25,000 UNIT in 0.45% NACL 1 500ML.BAG IV SCH (16:45)
[2018-05-01] MEDS ORDERED: HEPARIN SODIUM,PORCINE 5,000 UNIT/ML 1 ML VIAL IV ONE (16:45)
[2018-05-01] MEDS ORDERED: NITROGLYCERIN SL TABS 0.4 MG TAB SUBLINGUAL PRN (16:47)
[2018-05-01] MEDS ORDERED: SODIUM CHLORIDE 0.9% 1,000 ML IV STA (17:39)
[2018-05-01] MEDS ORDERED: ACETAMINOPHEN TAB 500 MG TAB PO PRN (20:28)
[2018-05-01 21:12] VITALS: RESP 16
[2018-05-01] MEDS: NITROGLYCERIN OINT 1 INCH/GM PACKET TOPICAL SCH (21:18)
[2018-05-01] MEDS ORDERED: ZOLPIDEM 10 MG TAB PO PRN (21:55)
[2018-05-01] MEDS ORDERED: ALPRAZolam 0.5 MG TAB PO PRN (21:55)
[2018-05-01 21:59] LABS: Creatine Kinase 52 U/L (55-170)
[2018-05-01 22:13] LABS: Creatine Kinase MB 0.6 ng/mL (0.0-2.4); Troponin I <0.012 ng/mL (0.000-0.034)
[2018-05-01 22:24] LABS: Cholesterol 282 mg/dL (<200); HDL Cholesterol 31 mg/dL (40-60)
[2018-05-01 22:33] LABS: Triglycerides 1181 mg/dL (<150)
[2018-05-02] MEDS: NITROGLYCERIN OINT 1 INCH/GM PACKET TOPICAL SCH ×2 (00:20→05:17)
[2018-05-02 03:00] LABS: Creatine Kinase 51 U/L (55-170)
[2018-05-02 03:13] LABS: Creatine Kinase MB 0.6 ng/mL (0.0-2.4); Troponin I <0.012 ng/mL (0.000-0.034)
[2018-05-02 07:52] VITALS: BP 117/75; PULSE 60; TEMP 97.6
[2018-05-02] MEDS ORDERED: cloNIDine HCL 0.1 MG TAB PO SCH (09:00)
[2018-05-02] MEDS ORDERED: buPROPion XL 300 MG TAB.ER.24H PO SCH (09:00)
[2018-05-02] MEDS ORDERED: ASPIRIN 325 MG TAB PO SCH (09:00)
[2018-05-02] MEDS ORDERED: ASPIRIN 81 MG PO SCH (09:00)
[2018-05-02 09:35] VITALS: BMI 24.2
--- NOTE | 2018-05-02 11:50 | P.STRESS ---
- Stress Test Note Stress Test Results/Findings: Exam Performed: stress echo exercise Exam Date: 05/02/18 Reason for Exam: Chest Pain Height: 5 ft 8 in Weight: 72.121 kg Protocol: Stress Echo Stage: IV Duration of Exercise: 11:00 Resting Heart Rate: 65 Resting Blood Pressure: 157/63 Maximum Achieved Heart Rate: 150 Maximum Achieved Blood Pressure: 200/80 85% PMHR: 146 100% PMHR: 172 METS: 12.1 Technologist Comment: Stress Test Results/Findings: This is a 48-year-old gentleman who was admitted to the hospital with complaints of atypical chest pains. Cardiac enzymes were negative. EKGs did not reveal any acute changes. Stress data: Pacing EKG showed sinus rhythm with normal MA interval and QRS duration. Blood pressure at rest is 157/63 with a pulse rate of 65. Patient walked on the Yasmany protocol for about 11 minutes achieving a maximum heart rate of 150 with a blood pressure of 130/68. EKGs taken during and after the exercise did not reveal any significant changes to suggest ischemia. Patient did not experience any chest pain. No arrhythmias were detected. Echo data: Baseline echo images showed normal wall motion and thickening. Exercise echo images showed augmentation of the wall motion and thickening in all the segments. Final impression: #1. Negative stress test #2. Negative stress echo.
--- NOTE | 2018-05-02 12:11 | ECHOF ---
Referral Reason:cp MEASUREMENTS -------- HEIGHT: 152.4 cm WEIGHT: 72.1 kg BP: RVIDd: 2.8 cm (< 3.3) IVSd: 1.1 cm (0.6 - 1.1) LVIDd: 4.4 cm (3.9 - 5.3) LVPWd: 0.9 cm (0.6 - 1.1) IVSs: 1.2 cm LVIDs: 2.9 cm LVPWs: 1.4 cm LA Diam: 3.7 cm (2.7 - 3.8) Ao Diam: 3.5 cm (2.0 - 3.7) AV Cusp: 1.7 cm (1.5 - 2.6) LA Diam: 4.0 cm (2.7 - 3.8) MV EXCURSION: 19.783 mm (> 18.000) MV EF SLOPE: 72 mm/s (70 - 150) EPSS: 0.6 cm MV E Amol: 0.54 m/s MV DecT: 267 ms MV A Amol: 0.75 m/s MV E/A Ratio: 0.72 RAP: 5.00 mmHg RVSP: 13.52 mmHg FINDINGS -------- Sinus rhythm. This was a technically good study. LV size, wall thickness and systolic function are normal, with an EF greater than 55%. The left homero tricular size is normal. The right ventricle is normal in size. The left atrial size is normal. The right atrial size is normal. The aortic valve is trileaflet, and appears structurally normal. No aortic stenosis or regurgitation. Mild mitral regurgitation is present. Mild tricuspid regurgitation present. There is no evidence of pulmonary hypertension. The right v entricular systolic pressure, as measured by Doppler, is 13.52mmHg. There is no pulmonic regurgitation present. The aortic root size is normal. There is no pericardial effusion. CONCLUSIONS -------- 1. LV size, wall thickness and systolic function are normal, with an EF greater than 55%. 2. The left ventricular size is normal. 3. The right ventricle is normal in size. 4. The left atrial size is normal. 5. The right atrial size is normal. 6. The aortic valve is trileaflet, and appears structurally normal. No aortic stenosis or regurgitati on. 7. Mild mitral regurgitation is present. 8. Mild tricuspid regurgitation present. 9. There is no evidence of pulmonary hypertension. 10. The right ventricular systolic pressure, as measured by Doppler, is 13.52mmHg. 11. There is no pulmonic regurgitation present. 12. The aortic root size is normal. 13. There is no pericardial effusion. [employer] CLERK: Марина Fournier RDCS
--- NOTE | 2018-05-02 12:16 | P.CRDCN ---
History of Present Illness History of present illness: Mr. Newell is seen and examined resting comfortably in bed. Past medical history significant for COPD, hypertension, dyslipidemia, obstructive sleep apnea, GERD, anxiety, depression, schizophrenia and chronic nicotine dependence. He follows with Dr. Ceja in the office. We have been asked to see him in consultation for chest pain. He states for the last week and a half has been having intermittent pain in the upper left shoulder and precordial region with radiation into the right arm. He has also been coughing. The pain seems to be related to exertion and gets better with rest. He denies palpitations, nausea , vomiting, diaphoresis, shortness of breath, PND or orhopnea. His symptoms have been intermittent in nature and seem to start as soon as he gets up in the morning and go off an on all day. He states he was recently started on Crestor however was unable to tolerate it after taking for a week and stopped. He states he has implemented diet changes for improving of his cholesterol. EKG reveals sinus mechanism with no acute ST or T-wave abnormalities. Inferior Q -wave noted. Consistent with old EKG's. Chest xray negative for an acute cardiopulmonary process. Laboratory data reviewed, hemoglobin 15.6, platelets 210, sodium 141, potassium 4.4, magnesium 2.0, creatinine 0.91, cardiac enzymes negative 3, triglycerides 1181. Most recent stress echocardiogram performed in the office 05/2017 revealed good exercise tolerance with normal EKG and echocardiogram in response to exercise. He underwent cardiac catheterization in 2008 which revealed normal coronary arteries with no obstructive disease. Review of Systems At the time of my exam: CONSTITUTIONAL: Denies fever. Denies chills. EYES: Denies blurred vision. Denies vision changes. Denies eye pain. EARS, NOSE, MOUTH & THROAT: Denies headache. Denies sore throat. Denies ear pain. CARDIOVASCULAR: Denies chest pain. Denies shortness of breath. Denies orthopnea. Denies PND. Denies palpitations. RESPIRATORY: Denies cough. GASTROINTESTINAL: Denies abdominal pain. Denies diarrhea. Denies constipation. Denies nausea. Denies vomiting. MUSCULOSKELETAL: Denies myalgias. INTEGUMENTARY: Denies pruitis. Denies rash. NEUROLOGIC: Denies numbness. Denies tingling. Denies weakness. PSYCHIATRIC: Denies anxiety. Denies depression. ENDOCRINE: Denies fatigue. Denies weight change. Denies polydipsia. Denies polyurina. GENITOURINARY: Denies burning, hematuria or urgency with micturation. HEMATOLOGIC: Denies history of anemia. Denies bleeding. Past Medical History Past Medical History: Cancer, COPD, GERD/Reflux, Hyperlipidemia, Hypertension, Musculoskeletal Disorder, Osteoarthritis (OA), Sleep Apnea/CPAP/BIPAP Additional Past Medical History / Comment(s): s/p lumbar laminectomy decompression with fusion L4-S1. Other HX: coronary artery spasms,past stress test. gout,pain in back,dizziness, hx. H pylori, hiatal hernia, skin cancer, fatty liver, doens't use CPAP, occasional hand tremors, . History of Any Multi-Drug Resistant Organisms: None Reported Past Surgical History: Back Surgery, Heart Catheterization, Orthopedic Surgery Additional Past Surgical History / Comment(s): 05/15/15 Lumbar laminectomy with decompression and fusion L4-S1 with cell saver.pt stated he has a titanuim hoda, caging, screws in back Other SX: L carpal tunnel surg., EGD biopsy of stomach for Hpylori, moles removed Past Anesthesia/Blood Transfusion Reactions: Previous Problems w/ Anesthesia, Motion Sickness Additional Past Anesthesia/Blood Transfusion Reaction / Comment(s): slow to wake up w/anesthesia, clausterphobia Smoking Status: Former smoker - Past Family History Mother Family Medical History: Cancer, Deep Vein Thrombosis (DVT), Pulmonary Embolus Additional Family Medical History / Comment(s): Skin ca Father Family Medical History: Cancer Additional Family Medical History / Comment(s): Bone CA Medications and Allergies Home Medications Medication Instructions Recorded Confirmed Type ALPRAZolam [Xanax] 0.5 mg PO BID PRN 11/13/16 05/01/18 History Ibuprofen [Motrin] 800 mg PO TID PRN 05/01/18 05/01/18 History Zolpidem [Ambien] 10 mg PO HS PRN 05/01/18 05/01/18 History buPROPion HCL [Wellbutrin XL] 300 mg PO DAILY 05/01/18 05/01/18 History cloNIDine HCL [Catapres] 0.1 mg PO BID 05/01/18 05/01/18 History Allergies Allergy/AdvReac Type Severity Reaction Status Date / Time sertraline HCl [From Zoloft] Allergy Unknown Anaphylaxis Verified 05/01/18 15:41 fluoxetine HCl [From Prozac] AdvReac Intermediate Disoriented, Verified 15:41 Verbally Violent rosuvastatin [From Crestor] AdvReac Confusion Verified 05/01/18 15:41 venlafaxine [From Effexor] AdvReac Nausea Verified 05/01/18 15:41 Physical Exam Vitals: Vital Signs Temp Pulse Pulse Resp BP BP Pulse Ox 05/02/18 07:48 97.6 F 60 16 117/75 97 05/02/18 04:00 16 05/02/18 03:00 98.1 F 59 L 16 107/69 97 05/02/18 00:00 16 05/01/18 23:34 97.6 F 59 L 16 100/63 98 05/01/18 21:10 97.9 F 56 L 16 137/85 98 05/01/18 20:23 98.6 F 72 18 115/69 99 05/01/18 20:00 16 05/01/18 19:17 70 18 110/70 99 05/01/18 18:43 59 L 16 107/79 97 05/01/18 17:42 58 L 16 105/72 98 05/01/18 14:20 98.3 F 80 18 107/50 99 Intake and Output 05/01/18 05/02/18 05/02/18 22:59 06:59 14:59 Intake Total 128.834 Balance 128.834 Intake: Intake, IV Titration 128.834 Amount Heparin Sod,Pork in 0.45% 128.834 NaCl 25,000 unit In 0.45 % NaCl 1 500ml.bag @ 12 UNITS/KG/HR 17.41 mls/hr IV .Q24H [facility] Rx#: [id number] Other: Voiding Method Toilet Toilet # Voids 3 Weight 72.2 kg Blood pressure 117/75 heart rate 60 afebrile maintaining oxygen saturation on room air GENERAL: This is a 48-year-old male in no apparent distress at the time of my examination. HEENT: Head is atraumatic, normocephalic. Pupils are equal, round. Sclerae anicteric. Conjunctivae are clear. Mucous membranes of the mouth are moist. Neck is supple. There is no jugular venous distention. No carotid bruit is heard. LUNGS: Clear to auscultation no wheezes, rales or rhonchi. No chest wall tenderness is noted on palpation or with deep breathing. HEART: Regular rate and rhythm without murmurs, rubs or gallops. S1 and S2 heard. ABDOMEN: Soft, nontender. Bowel sounds are heard. No organomegaly noted. EXTREMITIES: No evidence of peripheral edema and no calf tenderness noted. VASCULAR: Radial and dorsalis pedis pulses palpated, no evidence of clubbing. NEUROLOGIC: Patient is awake, alert and oriented x3. Results 05/01/18 14:53 05/01/18 14:53 Cardiac Enzymes 05/01/18 05/01/18 05/01/18 Range/Units 14:53 14:53 21:30 AST 51 (17-59) U/L CK-MB (CK-2) 1.0 0.6 (0.0-2.4) ng/mL Troponin I <0.012 <0.012 (0.000-0.034) ng/mL 05/02/18 Range/Units 02:38 AST (17-59) U/L CK-MB (CK-2) 0.6 (0.0-2.4) ng/mL Troponin I <0.012 (0.000-0.034) ng/mL Coagulation 05/01/18 05/01/1818 Range/Units 14:53 23:34 06:57 PT 9.7 (9.0-12.0) sec APTT 25.5 32.0 H 36.4 H (22.0-30.0) sec Lipids 05/01/18 Range/Units 14:53 Triglycerides 1181 H (<150) mg/dL Cholesterol 282 H (<200) mg/dL HDL Cholesterol 31 L (40-60) mg/dL CBC 05/01/18 Range/Units 14:53 WBC 7.2 (3.8-10.6) k/uL RBC 5.19 (4.30-5.90) m/uL Hgb 15.6 (13.0-17.5) gm/dL Hct 45.4 (39.0-53.0) % Plt Count 210 (150-450) k/uL Comprehensive Metabolic Panel 05/01/18 Range/Units 14:53 Sodium 141 (137-145) mmol/L Potassium 4.4 (3.5-5.1) mmol/L Chloride 106 (98-107) mmol/L Carbon Dioxide 24 (22-30) mmol/L BUN 16 (9-20) mg/dL Creatinine 0.91 (0.66-1.25) mg/dL Glucose 100 H (74-99) mg/dL Calcium 9.8 (8.4-10.2) mg/dL AST 51 (17-59) U/L ALT 67 (21-72) U/L Alkaline Phosphatase 109 (38-126) U/L Total Protein 7.6 (6.3-8.2) g/dL Albumin 4.5 (3.5-5.0) g/dL Current Medications Generic Name Dose Route Start Last Admin Trade Name Freq PRN Reason Stop Dose Admin Acetaminophen 1,000 mg 05/01/18 20:28 05/01/18 20:40 Tylenol Tab PO 1,000 mg Q6HR PRN Administration Fever and/ or Pain Alprazolam 0.5 mg 05/01/18 21:55 Xanax PO BID PRN Anxiety Aspirin 81 mg 05/02/18 09:00 Aspirin PO DAILY [facility] Bupropion HCl 300 mg 05/02/18 09:00 Wellbutrin Xl PO DAILY [facility] Clonidine 0.1 mg 05/02/18 09:00 Catapres PO BID [facility] Sodium Chloride 1,000 mls @ 20 mls/hr 05/01/18 17:39 05/01/18 17:40 Saline 0.9% IV 05/02/18 17:38 20 mls/hr .Q24H [facility] Administration Nitroglycerin 0.4 mg 05/01/18 16:47 Nitrostat SUBLINGUAL Q5M PRN Chest Pain Zolpidem Tartrate 10 mg 05/01/18 21:55 05/01/18 22:45 Ambien PO 10 mg HS PRN Administration Insomnia Intake and Output 05/01/18 05/02/18 05/02/18 22:59 06:59 14:59 Intake Total 128.834 Balance 128.834 Intake: Intake, IV Titration 128.834 Amount Heparin Sod,Pork in 0.45% 128.834 NaCl 25,000 unit In 0.45 % NaCl 1 500ml.bag @ 12 UNITS/KG/HR 17.41 mls/hr IV .Q24H [facility] Rx#: [id number] Other: Voiding Method Toilet Toilet # Voids 3 Weight 72.2 kg 05/01/18 14:53 05/01/18 14:53 Assessment and Plan Assessment: ASSESSMENT Chest pain, atypical. An acute event has been ruled out with no EKG evidence of ischemia and negative cardiac enzymes. Hypertension, controlled. Dyslipidemia COPD Chronic nicotine dependence PLAN An acute coronary event has been ruled out with no EKG evidence of ischemia and negative cardiac enzymes. Perform exercise stress echocardiogram to assess for stress induced cardiac ischemia. If normal he is stable from a cardiac perspective. Follow up with Dr. Ceja in 2-3 weeks. Thank you kindly for this consultation. Nurse Practitioner note has been reviewed, I agree with a documented findings and plan of care. Patient was seen and examined.
[2018-05-02] MEDS ORDERED: FENOFIBRATE 160 MG TAB PO SCH (15:30)
--- NOTE | 2018-05-03 08:22 | P.HPIM ---
History of Present Illness H&P Date: 05/02/18 Chief Complaint: Chest pressure. 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 The patient states no significant diaphoresis. No nausea. No significant fever or chills stated. Patient is a smoker. No illicit substance abuse is stated. Review of Systems Constitutional: Denies chills, Denies fever Eyes: denies blurred vision, denies pain Ears, nose, mouth and throat: Denies headache, Denies sore throat Cardiovascular: Reports chest pain Respiratory: Denies cough Gastrointestinal: Denies abdominal pain, Denies diarrhea, Denies nausea, Denies vomiting Past Medical History Past Medical History: Cancer, COPD, GERD/Reflux, Hyperlipidemia, Hypertension, Musculoskeletal Disorder, Osteoarthritis (OA), Sleep Apnea/CPAP/BIPAP Additional Past Medical History / Comment(s): s/p lumbar laminectomy decompression with fusion L4-S1. Other HX: coronary artery spasms,past stress test. gout,pain in back,dizziness, hx. H pylori, hiatal hernia, skin cancer, fatty liver, doens't use CPAP, occasional hand tremors, . History of Any Multi-Drug Resistant Organisms: None Reported Past Surgical History: Back Surgery, Heart Catheterization, Orthopedic Surgery Additional Past Surgical History / Comment(s): 05/15/15 Lumbar laminectomy with decompression and fusion L4-S1 with cell saver.pt stated he has a titanuim hoda, caging, screws in back Other SX: L carpal tunnel surg., EGD biopsy of stomach for Hpylori, moles removed Past Anesthesia/Blood Transfusion Reactions: Previous Problems w/ Anesthesia, Motion Sickness Additional Past Anesthesia/Blood Transfusion Reaction / Comment(s): slow to wake up w/anesthesia, clausterphobia Smoking Status: Former smoker - Past Family History Mother Family Medical History: Cancer, Deep Vein Thrombosis (DVT), Pulmonary Embolus Additional Family Medical History / Comment(s): Skin ca Father Family Medical History: Cancer Additional Family Medical History / Comment(s): Bone CA Medications and Allergies Home Medications Medication Instructions Recorded Confirmed Type ALPRAZolam [Xanax] 0.5 mg PO BID PRN 11/13/16 05/01/18 History Ibuprofen [Motrin] 800 mg PO TID PRN 05/01/18 05/01/18 History Zolpidem [Ambien] 10 mg PO HS PRN 05/01/18 05/01/18 History buPROPion HCL [Wellbutrin XL] 300 mg PO DAILY 05/01/18 05/01/18 History cloNIDine HCL [Catapres] 0.1 mg PO BID 05/01/18 05/01/18 History Fenofibrate [Lofibra] 160 mg PO DAILY #30 tab 05/02/18 Rx Allergies Allergy/AdvReac Type Severity Reaction Status Date / Time sertraline HCl [From Zoloft] Allergy Unknown Anaphylaxis Verified 05/01/18 15:41 fluoxetine HCl [From Prozac] AdvReac Intermediate Disoriented, Verified 15:41 Verbally Violent rosuvastatin [From Crestor] AdvReac Confusion Verified 05/01/18 15:41 venlafaxine [From Effexor] AdvReac Nausea Verified 05/01/18 15:41 Physical Exam - Constitutional General appearance: no acute distress - EENT Eyes: EOMI - Neck Neck: no lymphadenopathy - Respiratory Respiratory: bilateral: CTA - Cardiovascular Rhythm: regular Heart sounds: normal: S1, S2 Abnormal Heart Sounds: no S3 Gallop - Gastrointestinal General gastrointestinal: soft, no tenderness - Integumentary Integumentary: rash - Neurologic Neurologic: CNII-XII intact - Psychiatric Psychiatric: A&O x's 3 Results CBC & Chem 7: 05/01/18 14:53 05/01/18 14:53 Thrombosis Risk Factor Assmnt - Choose All That Apply Each Factor Represents 1 point: Abnormal pulmonary function (COPD), Age 41-60 years Each Risk Factor Represents 2 Points: Malignancy Thrombosis Risk Factor Assessment Total Risk Factor Score: 4 Thrombosis Risk Factor Assessment Level: Moderate Risk Assessment and Plan (1) Disc degeneration, lumbar Status: Acute Code(s): M51.36 - OTHER INTERVERTEBRAL DISC DEGENERATION, LUMBAR REGION SNOMED Code(s): 96157783 (2) Hypertension Status: Acute Code(s): I10 - ESSENTIAL (PRIMARY) HYPERTENSION SNOMED Code(s) : 08599798 (3) Unstable angina pectoris Status: Acute Code(s): I20.0 - UNSTABLE ANGINA SNOMED Code(s): 8932910 Plan: Rule out myocardial infarction. The patient will have cardiology consultation. Reconcile medications. Smoking cessation again discussed with him patient. Anticipate discharge in next 24-40 hours if stable.
--- NOTE | 2018-05-03 08:23 | P.DS ---
Providers Date of admission: 05/01/18 16:47 Attending physician: Lang Muro Consults: 05/01/18 16:47 Consult Physician Urgent Consulting Provider: [facility] Consult Reason/Comments: Unstable angina Do you want consulting provider notified?: Yes Primary care physician: Lang Muro - Discharge Diagnosis(es) (1) Disc degeneration, lumbar Status: Acute (2) Hypertension Status: Acute (3) Unstable angina pectoris Status: Acute Hospital Course: This is a discharge summary a 48-year-old white male essentially admitted for chest pain. Cardiogenic was consulted. The patient had appropriate stress testing and was rule out for myocardial infarction. The patient was discharged stable condition to follow-up with me in about 7 days. Plan - Discharge Summary Discharge Rx Participant: No New Discharge Prescriptions: New Fenofibrate [Lofibra] 160 mg PO DAILY #30 tab No Action ALPRAZolam [Xanax] 0.5 mg PO BID PRN PRN Reason: Anxiety cloNIDine HCL [Catapres] 0.1 mg PO BID Zolpidem [Ambien] 10 mg PO HS PRN PRN Reason: Insomnia Ibuprofen [Motrin] 800 mg PO TID PRN PRN Reason: Pain buPROPion HCL [Wellbutrin XL] 300 mg PO DAILY Discharge Medication List ALPRAZolam [Xanax] 0.5 mg PO BID PRN 11/13/16 [History] Ibuprofen [Motrin] 800 mg PO TID PRN 05/01/18 [History] Zolpidem [Ambien] 10 mg PO HS PRN 05/01/18 [History] buPROPion HCL [Wellbutrin XL] 300 mg PO DAILY 05/01/18 [History] cloNIDine HCL [Catapres] 0.1 mg PO BID 05/01/18 [History] Fenofibrate [Lofibra] 160 mg PO DAILY #30 tab 05/02/18 [Rx] Follow up Appointment(s)/Referral(s): Erica Ceja MD [STAFF PHYSICIAN] - 2 Weeks (Office will call in a couple days with an appt) Lang Muro MD [Primary Care Provider] - 1-2 days Patient Instructions/Handouts: Chest Pain (ED) Discharge Disposition: HOME SELF-CARE
--- NOTE | 2018-05-04 16:36 | ECHOS ---
Stress Test Results/Findings: Exam Performed: stress echo exercise Exam Date: 05/02/18 Reason for Exam: Chest Pain Height: 5 ft 8 in Weight: 72.121 kg Protocol: Stress Echo Stage: IV Duration of Exercise: 11:00 Resting Heart Rate: 65 Resting Blood Pressure: 157/63 Maximum Achieved Heart Rate: 150 Maximum Achieved Blood Pressure: 200/80 85% PMHR: 146 100% PMHR: 172 METS: 12.1 Technologist Comment: Stress Test Results/Findings: This is a 48-year-old gentleman who was admitted to the hospital with complaints of atypical chest pains. Cardiac enzymes were negative. EKGs did not reveal any acute changes. Stress data: Pacing EKG showed sinus rhythm with normal NE interval and QRS duration. Blood pressure at rest is 157/63 with a pulse rate of 65. Patient walked on the Yasmany protocol for about 11 minutes achieving a maximum heart rate of 150 with a blood pressure of 130/68. EKGs taken during and after the exercise did not reveal any significant changes to suggest ischemia. Patient did not experience any chest pain. No arrhythmias were detected. Echo data: Baseline echo images showed normal wall motion and thickening. Exercise echo images showed augmentation of the wall motion and thickening in all the segments. Final impression: #1. Negative stress test #2. Negative stress echo. KALYANI
== END 2018-05-02 16:15 | disposition home or self-care (01) ==
LOC: EC 14:11 → 3OBS 16:47
PROVIDERS: ADMIT Family Medicine; ATTEND Family Medicine
DX: I20.0 Unstable angina (principal); I10 Essential (primary) hypertension; J44.9 Chronic obstructive pulmonary disease, unspecified; M51.36 Other intervertebral disc degeneration, lumbar region; K21.9 Gastro-esophageal reflux disease without esophagitis; G47.33 Obstructive sleep apnea (adult) (pediatric); Z99.89 Dependence on other enabling machines and devices; E78.5 Hyperlipidemia, unspecified; M19.90 Unspecified osteoarthritis, unspecified site; M10.9 Gout, unspecified; F20.9 Schizophrenia, unspecified; F41.9 Anxiety disorder, unspecified; F32.9 Major depressive disorder, single episode, unspecified; F17.200 Nicotine dependence, unspecified, uncomplicated; K76.0 Fatty (change of) liver, not elsewhere classified; K44.9 Diaphragmatic hernia without obstruction or gangrene; R25.1 Tremor, unspecified; Z79.899 Other long term (current) drug therapy; Z88.8 Allergy status to other drugs, medicaments and biological substances; Z98.1 Arthrodesis status; Z85.828 Personal history of other malignant neoplasm of skin; Z80.8 Family history of malignant neoplasm of other organs or systems; Z83.2 Family history of diseases of the blood and blood-forming organs and certain disorders involving the immune mechanism; Z82.49 Family history of ischemic heart disease and other diseases of the circulatory system
CPT/HCPCS: 96366 ×6; 96376 ×2; 96365 ×2; 99291 ×2; 36415; 93005; 93306; 93351; 80061; 80053; 82550 ×2; 82553 ×2; 83735; 84484 ×2; 85025; 85610; 85730 ×2; 71046; G0378 ×2; J1644 ×2

== ENCOUNTER → 2018-06-26 | Outpatient (CLI) | payer MEDICARE, OTHER | END | disposition home or self-care (01) | LOC: LABWHC1 09:56 | PROVIDERS: ATTEND Internal Medicine Interventional Cardiology | DX: E78.1 Pure hyperglyceridemia (principal) | CPT/HCPCS: 36415; 80061; 82550; 84450; 84460 ==

== ENCOUNTER 2018-09-23 02:40 | Emergency (ER) | payer MEDICARE, OTHER ==
[2018-09-23] MEDS ORDERED: KETOROLAC 30 MG/ML 1 ML VIAL IVP STA (03:12)
--- NOTE | 2018-09-23 03:21 | ED ---
Chest Pain HPI - General Chief Complaint: Chest Pain Stated Complaint: Chest Pain Time Seen by Provider: 09/23/18 02:51 Source: patient Mode of arrival: ambulatory Limitations: no limitations - History of Present Illness Initial Comments: 48-year-old male patient presents to the emergency department today for evaluation of substernal chest pain and mid back pain. Patient states this started this afternoon and has been occurring intermittently since its onset. Patient states that his chest is very tender to the touch. States that pain does increase with movement. He denies any nausea or vomiting with this. States he is having some mild dizziness with this. Denies any numbness or tingling to his extremities. Denies any syncope. Denies any shortness of breath, cough, or congestion. Denies any leg pain or calf tenderness. States that he did carry a case of water to the house today which is an unusual amount of lifting for him. Patient denies any recent rash, fever, chills, abdominal pain, diarrhea, constipation, back pain, hematuria, dysuria, urinary urgency, urinary frequency, headache, visual changes, or any other complaints. - Related Data Home Medications Medication Instructions Recorded Confirmed ALPRAZolam [Xanax] 0.5 mg PO BID PRN 11/13/16 09/23/18 Ibuprofen [Motrin] 800 mg PO TID PRN 05/01/18 09/23/18 Zolpidem [Ambien] 10 mg PO HS PRN 05/01/18 09/23/18 buPROPion HCL [Wellbutrin XL] 300 mg PO DAILY 05/01/18 09/23/18 cloNIDine HCL [Catapres] 0.1 mg PO BID 05/01/18 09/23/18 Previous Rx's Medication Instructions Recorded Fenofibrate [Lofibra] 160 mg PO DAILY #30 tab 05/02/18 Allergies Allergy/AdvReac Type Severity Reaction Status Date / Time sertraline HCl [From Zoloft] Allergy Unknown Anaphylaxis Verified 05/01/18 15:41 fluoxetine HCl [From Prozac] AdvReac Intermediate Disoriented, Verified 15:41 Verbally Violent rosuvastatin [From Crestor] AdvReac Confusion Verified 05/01/18 15:41 venlafaxine [From Effexor] AdvReac Nausea Verified 05/01/18 15:41 Review of Systems ROS Statement: Those systems with pertinent positive or pertinent negative responses have been documented in the HPI. ROS Other: All systems not noted in ROS Statement are negative. EKG Findings - EKG Comments: EKG Findings:: EKG obtained at oh to 52 shows normal sinus rhythm with a ventricular rate of 78, NC interval 156, QRS duration 102, QT 350, QTC 399. Past Medical History Past Medical History: Cancer, COPD, GERD/Reflux, Hyperlipidemia, Hypertension, Musculoskeletal Disorder, Osteoarthritis (OA), Sleep Apnea/CPAP/BIPAP Additional Past Medical History / Comment(s): s/p lumbar laminectomy decompression with fusion L4-S1. Other HX: coronary artery spasms,past stress test. gout,pain in back,dizziness, hx. H pylori, hiatal hernia, skin cancer, fatty liver, doens't use CPAP, occasional hand tremors, . History of Any Multi-Drug Resistant Organisms: None Reported Past Surgical History: Back Surgery, Heart Catheterization, Orthopedic Surgery Additional Past Surgical History / Comment(s): 05/15/15 Lumbar laminectomy with decompression and fusion L4-S1 with cell saver.pt stated he has a titanuim hoda, caging, screws in back Other SX: L carpal tunnel surg., EGD biopsy of stomach for Hpylori, moles removed Past Anesthesia/Blood Transfusion Reactions: Previous Problems w/ Anesthesia, Motion Sickness Additional Past Anesthesia/Blood Transfusion Reaction / Comment(s): slow to wake up w/anesthesia, clausterphobia Past Psychological History: Anxiety, Depression, Schizophrenia Smoking Status: Former smoker - Past Family History Mother Family Medical History: Cancer, Deep Vein Thrombosis (DVT), Pulmonary Embolus Additional Family Medical History / Comment(s): Skin ca Father Family Medical History: Cancer Additional Family Medical History / Comment(s): Bone CA General Exam Limitations: no limitations General appearance: alert, in no apparent distress, other (Some well-developed, well-nourished adult male patient in no acute distress. Vital signs upon presentation are temperature 98.1F, pulse 76, respirations 20, blood pressure 144/95, pulse ox 97% on room air.) Eye exam: Present: normal appearance, PERRL, EOMI. Absent: scleral icterus, conjunctival injection, periorbital swelling ENT exam: Present: normal exam, normal oropharynx, mucous membranes moist Respiratory exam: Present: normal lung sounds bilaterally, chest wall tenderness (Inferior sternal tenderness). Absent: respiratory distress, wheezes , rales, rhonchi, stridor Cardiovascular Exam: Present: regular rate, normal rhythm, normal heart sounds. Absent: systolic murmur, diastolic murmur, rubs, gallop, clicks GI/Abdominal exam: Present: soft, normal bowel sounds. Absent: distended, tenderness, guarding, rebound, rigid Neurological exam: Present: alert, oriented X3, CN II-XII intact Psychiatric exam: Present: normal affect, normal mood Skin exam: Present: warm, dry, intact, normal color. Absent: rash Course Vital Signs 09/23/18 03:04 Temperature 98.1 F Pulse Rate 76 Respiratory 20 Rate Blood Pressure 144/95 O2 Sat by Pulse 97 Oximetry Chest Pain [facility]:Two-view x-ray of the chest is obtained. Report was reviewed in its entirety. Impression by Dr. Lainez shows no radiographic evidence of acute cardiopulmonary process. MDM: 48-year-old male patient presents emergency department today for evaluation of substernal chest pain that started earlier in the afternoon. Patient states the pain is intermittent. States that worsens with movement. Visual examination is relatively unremarkable. Lungs are clear to auscultation with good air movement. Vital signs are stable. Patient's pain is reproducible with palpation over the area. Does report anxiety as well. Labs reviewed and were unremarkable. Troponin negative. Chest x-ray shows no acute cardio pulmonary process. It is felt patient's pain is more musculoskeletal in nature. To be treated with anti-inflammatory medication. Instructed to follow- up with his primary care physician for recheck in 1-2 days. Return parameters discussed in detail. He verbalizes understanding and agrees with this plan. Disposition Clinical Impression: Chest pain, Chest wall pain Disposition: HOME SELF-CARE Condition: Good Instructions (If sedation given, give patient instructions): Chest Pain (ED), Costochondritis (ED) Additional Instructions: Take antinflammatory pain medication such as ibuprofen for pain control. Follow up with your primary care physician for recheck in 1-2 days. Return to the emergency department immediately for any new, worsening, or concerning symptoms. Is patient prescribed a controlled substance at d/c from ED?: No Referrals: Lang Muro MD [Primary Care Provider] - 1-2 days Time of Disposition: 04:41
[2018-09-23] MEDS ORDERED: LORazepam 1 MG TAB PO STA (03:32)
--- NOTE | 2018-09-23 03:36 | XR ---
EXAM: XR Chest, 2 Views CLINICAL HISTORY: Chest pain. TECHNIQUE: Frontal and lateral views of the chest. COMPARISON: CXR dated 05/01/2018. FINDINGS: Lungs: No focal consolidation. No evidence of pulmonary edema. Pleural space: No pleural effusion. No pneumothorax. Heart: Unremarkable. No cardiomegaly. Mediastinum: Unremarkable. Bones/joints: Unremarkable. IMPRESSION: No radiographic evidence of acute cardiopulmonary process.
[2018-09-23 03:45] LABS: Basophils % (A) 1 %; Eosinophils # (A) 0.2 k/uL (0-0.7); Eosinophils % (A) 3 %; HCT 40.2 % (39.0-53.0); Lymphocytes # (A) 1.8 k/uL (1.0-4.8); Lymphocytes % (A) 27 %; MCH 30.1 pg (25.0-35.0); MCHC 34.8 g/dL (31.0-37.0); MCV 86.5 fL (80.0-100.0); Mean Platelet Volume 8.1; Monocytes # (A) 0.4 k/uL (0-1.0); Monocytes % (A) 7 %; Neutrophils # (A) 4.1 k/uL (1.3-7.7); Neutrophils % (A) 62 %; Platelet Count 175 k/uL (150-450); RBC 4.65 m/uL (4.30-5.90); RDW 13.3 % (11.5-15.5); WBC 6.6 k/uL (3.8-10.6)
[2018-09-23 03:54] LABS: INR 0.9 (<1.2); Partial Thromboplastin Time 25.8 sec (22.0-30.0)
[2018-09-23 04:04] LABS: ALT 118 U/L (21-72); AST 55 U/L (17-59); Albumin 4.2 g/dL (3.5-5.0); Alkaline Phosphatase 91 U/L (38-126); Anion Gap 9 mmol/L; Blood Urea Nitrogen 16 mg/dL (9-20); Calcium 9.6 mg/dL (8.4-10.2); Carbon Dioxide 23 mmol/L (22-30); Chloride 107 mmol/L (98-107); Glucose 123 mg/dL (74-99); Sodium 139 mmol/L (137-145); Total Bilirubin 0.5 mg/dL (0.2-1.3); Total Protein 6.9 g/dL (6.3-8.2)
[2018-09-23 04:24] LABS: Creatine Kinase 86 U/L (55-170)
[2018-09-23 04:38] LABS: Creatine Kinase MB 0.4 ng/mL (0.0-2.4); Troponin I <0.012 ng/mL (0.000-0.034)
[2018-09-23 05:07] VITALS: BP 138/76; PULSE 82; RESP 18; TEMP 97.7
== END 2018-09-23 05:07 | disposition home or self-care (01) ==
LOC: EC 02:40
DX: R07.89 Other chest pain (principal); F41.9 Anxiety disorder, unspecified; G47.30 Sleep apnea, unspecified; F32.9 Major depressive disorder, single episode, unspecified; I10 Essential (primary) hypertension; Z79.899 Other long term (current) drug therapy; Z88.8 Allergy status to other drugs, medicaments and biological substances; Z87.891 Personal history of nicotine dependence; Z95.5 Presence of coronary angioplasty implant and graft; Z98.1 Arthrodesis status; Z85.828 Personal history of other malignant neoplasm of skin
CPT/HCPCS: 36415; 93005; 80053; 82550; 82553; 83735; 84484; 85025; 85610; 85730; 71046; 99285; 96374; J1885

== ENCOUNTER → 2018-12-20 | Outpatient (CLI) | payer MEDICARE, OTHER | END | disposition home or self-care (01) | LOC: LABWHC1 11:39 | PROVIDERS: ATTEND Nurse Practitioner | DX: E78.2 Mixed hyperlipidemia (principal) | CPT/HCPCS: 36415; 80061; 84450; 84460 ==

== ENCOUNTER 2019-03-24 20:43 | Emergency (ER) | payer MEDICARE, OTHER ==
[2019-03-24] MEDS ORDERED: SODIUM CHLORIDE 0.9% 1,000 ML IV STA (20:55)
[2019-03-24] MEDS ORDERED: ASPIRIN 81 MG PO STA (20:55)
--- NOTE | 2019-03-24 21:09 | ED ---
General Adult HPI - General Chief complaint: Chest Pain Stated complaint: Chest pain Time Seen by Provider: 03/24/19 20:52 Source: patient, RN notes reviewed, old records reviewed Mode of arrival: ambulatory Limitations: no limitations - History of Present Illness Initial comments: 49-year-old male patient with past medical history of chronic back pain, mu ltiple evaluations for chest pain presents ED for chest pain. Patient forces began today approximately 5 AM. Patient reports that his left parasternal region as well as his left lateral rib region. Patient reports he did have some associated shortness of breath. Patient does report some exertion today working on a car. Patient denies any current shortness of breath. Denies any associated symptoms including diaphoresis, nausea vomiting diarrhea. Denies any other complaints at this time. Systemic: Pt denies fatigue, fever/chills, rash. Pt denies weakness, night sweats, weight loss. Neuro: Pt denies headache, visual disturbances, syncope or pre-syncope. HEENT: Pt denies ocular discharge or irritation, otalgia, rhinorrhea, pharyngitis or notable lymphadenopathy. Cardiopulmonary: Pt denies heart palpitations, dyspnea on exertion. Abdominal/GI: Pt denies abdominal pain, n/v/d. : Pt denies dysuria, burning w/ urination, frequency/urgency. Denies new onset urinary or bowel incontinence. MSK: Pt denies myalgia, loss of strength or function in extremities. Neuro: Pt denies new onset weakness, paresthesias. - Related Data Home Medications Medication Instructions Recorded Confirmed ALPRAZolam [Xanax] 0.5 mg PO BID PRN 11/13/16 03/24/19 Ibuprofen [Motrin] 800 mg PO TID PRN 05/01/18 03/24/19 Fenofibrate [Lofibra] 160 mg PO HS 03/24/19 03/24/19 buPROPion HCL [Wellbutrin SR] 150 mg PO BID 03/24/19 03/24/19 Allergies Allergy/AdvReac Type Severity Reaction Status Date / Time sertraline HCl [From Zoloft] Allergy Unknown Anaphylaxis Verified 03/24/19 21:22 fluoxetine HCl [From Prozac] AdvReac Intermediate Disoriented, Verified 03/24/19 21:22 Verbally Violent rosuvastatin [From Crestor] AdvReac Confusion Verified 03/24/19 21:22 venlafaxine [From Effexor] AdvReac Nausea Verified 03/24/19 21:22 Review of Systems ROS Statement: Those systems with pertinent positive or pertinent negative responses have been documented in the HPI. ROS Other: All systems not noted in ROS Statement are negative. Past Medical History Past Medical History: Cancer, COPD, GERD/Reflux, Hyperlipidemia, Hypertension, Musculoskeletal Disorder, Osteoarthritis (OA), Sleep Apnea/CPAP/BIPAP Additional Past Medical History / Comment(s): s/p lumbar laminectomy decompression with fusion L4-S1. Other HX: coronary artery spasms,past stress test. gout,pain in back,dizziness, hx. H pylori, hiatal hernia, skin cancer, fatty liver, doens't use CPAP, occasional hand tremors, . History of Any Multi-Drug Resistant Organisms: None Reported Past Surgical History: Back Surgery, Heart Catheterization, Orthopedic Surgery Additional Past Surgical History / Comment(s): 05/15/15 Lumbar laminectomy with decompression and fusion L4-S1 with cell saver.pt stated he has a titanuim hoda, caging, screws in back Other SX: L carpal tunnel surg., EGD biopsy of stomach for Hpylori, moles removed Past Anesthesia/Blood Transfusion Reactions: Previous Problems w/ Anesthesia, Motion Sickness Additional Past Anesthesia/Blood Transfusion Reaction / Comment(s): slow to wake up w/anesthesia, clausterphobia Past Psychological History: Anxiety, Depression, Schizophrenia Smoking Status: Former smoker Past Alcohol Use History: None Reported Past Drug Use History: None Reported - Past Family History Mother Family Medical History: Cancer, Deep Vein Thrombosis (DVT), Pulmonary Embolus Additional Family Medical History / Comment(s): Skin ca Father Family Medical History: Cancer Additional Family Medical History / Comment(s): Bone CA General Exam - General Exam Comments Initial Comments: Constitutional: NAD, AOX3, Pt has pleasant affect. HEENT: NC/AT, trachea midline, neck supple, no lymphadenopathy. Posterior pharynx non erythematous, without exudates. External ears appear normal, without discharge. Mucous membranes moist. Eyes PERRLA, EOM intact. There is no scleral icterus. No pallor noted. Cardiopulmonary: RRR, no murmurs, rubs or gallops, no JVD noted. Lungs CTAB in anterior and posterior schreiber. No peripheral edema. Chest pain reproducible to palpation. Abdominal exam: Abdomen soft and non-distended. Abdomen non-tender to palpation in all 4 quadrants. Bowel sounds active in LLQ. No hepatosplenomegaly. No ecchymosis Neuro: CN II-XII grossly intact. No nuchal rigidity. No raccon eyes, no rucker sign, no hemotympanum. No cervical spinal tenderness. MSK: No posterior calf tenderness bilaterally, homans sign negative bilaterally. Posterior tibialis and radial pulse +2 bilaterally. Sensation intact in upper and lower extremities. Full active ROM in upper and lower extremities, 5/5 stregnth. Limitations: no limitations Course Vital Signs 03/24/19 03/24/19 03/24/19 20:45 21:12 22:27 Temperature 98.5 F Pulse Rate 87 72 93 Respiratory 16 18 18 Rate Blood Pressure 168/105 156/98 116/67 O2 Sat by Pulse 100 96 98 Oximetry 03/24/19 23:58 Temperature Pulse Rate 56 L Respiratory 16 Rate Blood Pressure 122/74 O2 Sat by Pulse 97 Oximetry Medical Decision Making - Medical Decision Making 49-year-old male patient with past medical history of chronic back pain, multiple evaluations for chest pain presents ED for chest pain. Patient forces began today approximately 5 AM. Patient reports that his left parasternal region as well as his left lateral rib region. Patient reports he did have some associated shortness of breath. Patient does report some exertion today working on a car. Patient denies any current shortness of breath. Denies any associated symptoms including diaphoresis, nausea vomiting diarrhea. Denies any other complaints at this time. Patient vital signs stable, afebrile. Physical exam displayed chest and appears upon palpation. Labs investigations nonpresent. D-dimer negative, troponin negative 2, EKG acting for acute ischemia. Patient has had negative stress test last 2 years. Chest pain atypical in nature. 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 Will return to ER if condition worsnes. Case discussed varghese Spivey. - Lab Data Result diagrams: 03/24/19 21:02 03/24/19 21:02 Lab Results 03/24/19 03/24/19 03/24/19 Range/Units 21:02 21:02 21:02 WBC 9.1 (3.8-10.6) k/uL RBC 5.06 (4.30-5.90) m/uL Hgb 15.4 (13.0-17.5) gm/dL Hct 45.2 (39.0-53.0) % MCV 89.3 (80.0-100.0) fL MCH 30.4 (25.0-35.0) pg MCHC 34.0 (31.0-37.0) g/dL RDW 15.5 (11.5-15.5) % Plt Count 216 (150-450) k/uL Neutrophils % 66 % Lymphocytes % 25 % Monocytes % 4 % Eosinophils % 3 % Basophils % 1 % Neutrophils # 6.0 (1.3-7.7) k/uL Lymphocytes # 2.3 (1.0-4.8) k/uL Monocytes # 0.4 (0-1.0) k/uL Eosinophils # 0.2 (0-0.7) k/uL Basophils # 0.1 (0-0.2) k/uL PT 9.8 (9.0-12.0) sec INR 0.9 (<1.2) APTT 26.7 (22.0-30.0) sec D-Dimer 0.39 (<0.60) mg/L FEU Sodium 140 (137-145) mmol/L Potassium 3.7 (3.5-5.1) mmol/L Chloride 104 (98-107) mmol/L Carbon Dioxide 24 (22-30) mmol/L Anion Gap 12 mmol/L BUN 19 (9-20) mg/dL Creatinine 1.06 (0.66-1.25) mg/dL Est GFR (CKD-EPI)AfAm >90 (>60 ml/min/1.73 sqM) Est GFR (CKD-EPI)NonAf 83 (>60 ml/min/1.73 sqM) Glucose 112 H (74-99) mg/dL Calcium 10.3 H (8.4-10.2) mg/dL Magnesium 1.9 (1.6-2.3) mg/dL Total Bilirubin 0.3 (0.2-1.3) mg/dL AST 37 (17-59) U/L ALT 53 (21-72) U/L Alkaline Phosphatase 69 (38-126) U/L Troponin I (0.000-0.034) ng/mL NT-Pro-B Natriuret Pep pg/mL Total Protein 7.8 (6.3-8.2) g/dL Albumin 4.9 (3.5-5.0) g/dL 03/24/19 03/24/19 03/25/19 Range/Units 21:02 21:02 00:15 WBC (3.8-10.6) k/uL RBC (4.30-5.90) m/uL Hgb (13.0-17.5) gm/dL Hct (39.0-53.0) % MCV (80.0-100.0) fL MCH (25.0-35.0) pg MCHC (31.0-37.0) g/dL RDW (11.5-15.5) % Plt Count (150-450) k/uL Neutrophils % % Lymphocytes % % Monocytes % % Eosinophils % % Basophils % % Neutrophils # (1.3-7.7) k/uL Lymphocytes # (1.0-4.8) k/uL Monocytes # (0-1.0) k/uL Eosinophils # (0-0.7) k/uL Basophils # (0-0.2) k/uL PT (9.0-12.0) sec INR (<1.2) APTT (22.0-30.0) sec D-Dimer (<0.60) mg/L FEU Sodium (137-145) mmol/L Potassium (3.5-5.1) mmol/L Chloride (98-107) mmol/L Carbon Dioxide (22-30) mmol/L Anion Gap mmol/L BUN (9-20) mg/dL Creatinine (0.66-1.25) mg/dL Est GFR (CKD-EPI)AfAm (>60 ml/min/1.73 sqM) Est GFR (CKD-EPI)NonAf (>60 ml/min/1.73 sqM) Glucose (74-99) mg/dL Calcium (8.4-10.2) mg/dL Magnesium (1.6-2.3) mg/dL Total Bilirubin (0.2-1.3) mg/dL AST (17-59) U/L ALT (21-72) U/L Alkaline Phosphatase (38-126) U/L Troponin I <0.012 <0.012 (0.000-0.034) ng/mL NT-Pro-B Natriuret Pep 67 pg/mL Total Protein (6.3-8.2) g/dL Albumin (3.5-5.0) g/dL - EKG Data -: EKG Interpreted by Me (and Dr. Spivey) EKG Comments: Ventricular rate 79, AR interval 158, QRS 104, QT/QTC 350/41. Normal sinus rhythm, normal EKG, no concern for acute ischemia. Disposition Clinical Impression: Chest pain Disposition: HOME SELF-CARE Condition: Stable Instructions (If sedation given, give patient instructions): Chest Pain (ED) Additional Instructions: Patient to adhere to previously discussed treatment plan and will take medication(s) as directed. Patient to follow up with PCP in 1-2 days. Patient to return to ED if symptoms do not improve. 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 Return to ER if condition worsens. Is patient prescribed a controlled substance at d/c from ED?: No Referrals: Lang Muro MD [Primary Care Provider] - 1-2 days [facility] [Provider Group] - 1-2 days
[2019-03-24 21:18] LABS: Basophils # (A) 0.1 k/uL (0-0.2); Basophils % (A) 1 %; Eosinophils # (A) 0.2 k/uL (0-0.7); Eosinophils % (A) 3 %; HCT 45.2 % (39.0-53.0); HGB 15.4 gm/dL (13.0-17.5); Lymphocytes # (A) 2.3 k/uL (1.0-4.8); Lymphocytes % (A) 25 %; MCH 30.4 pg (25.0-35.0); MCV 89.3 fL (80.0-100.0); Mean Platelet Volume 8.4; Monocytes # (A) 0.4 k/uL (0-1.0); Monocytes % (A) 4 %; Neutrophils % (A) 66 %; Platelet Count 216 k/uL (150-450); RBC 5.06 m/uL (4.30-5.90); RDW 15.5 % (11.5-15.5); WBC 9.1 k/uL (3.8-10.6)
[2019-03-24 21:24] LABS: ALT 53 U/L (21-72); AST 37 U/L (17-59); African American GFR (CKD) >90 (>60 ml/min/1.73 sqM); Albumin 4.9 g/dL (3.5-5.0); Alkaline Phosphatase 69 U/L (38-126); Anion Gap 12 mmol/L; Blood Urea Nitrogen 19 mg/dL (9-20); Calcium 10.3 mg/dL (8.4-10.2); Carbon Dioxide 24 mmol/L (22-30); Chloride 104 mmol/L (98-107); Glucose 112 mg/dL (74-99); Magnesium 1.9 mg/dL (1.6-2.3); Non-African American GFR(CKD) 83 (>60 ml/min/1.73 sqM); Potassium 3.7 mmol/L (3.5-5.1); Sodium 140 mmol/L (137-145); Total Bilirubin 0.3 mg/dL (0.2-1.3); Total Protein 7.8 g/dL (6.3-8.2)
--- NOTE | 2019-03-24 21:26 | XR ---
EXAMINATION TYPE: XR chest 2V DATE OF EXAM: 03/24/2019 COMPARISON: 09/23/2018 HISTORY: Chest pain TECHNIQUE: Frontal and lateral views of the chest are obtained. FINDINGS: Heart and mediastinum are normal. Lungs are clear. Diaphragm is normal. There are chest le ads. IMPRESSION: Normal chest. No change.
[2019-03-24 21:28] LABS: D-Dimer 0.39 mg/L FEU (<0.60); INR 0.9 (<1.2); Partial Thromboplastin Time 26.7 sec (22.0-30.0); Prothrombin Time 9.8 sec (9.0-12.0)
[2019-03-24] MEDS ORDERED: MECLIZINE 12.5 MG TAB PO STA (22:30)
[2019-03-24] MEDS ORDERED: KETOROLAC 30 MG/ML 1 ML VIAL IVP STA (22:33)
[2019-03-25] VITALS: RESP 16
[2019-03-25 01:32] VITALS: BP 138/89; PULSE 54; TEMP 97.5
== END 2019-03-25 01:40 | disposition home or self-care (01) ==
LOC: EC 20:43
DX: R07.89 Other chest pain (principal); E78.5 Hyperlipidemia, unspecified; F41.9 Anxiety disorder, unspecified; F32.9 Major depressive disorder, single episode, unspecified; F20.9 Schizophrenia, unspecified; G47.30 Sleep apnea, unspecified; Z99.89 Dependence on other enabling machines and devices; Z87.891 Personal history of nicotine dependence; Z95.818 Presence of other cardiac implants and grafts; Z85.828 Personal history of other malignant neoplasm of skin; Z87.09 Personal history of other diseases of the respiratory system; Z79.899 Other long term (current) drug therapy; Z88.8 Allergy status to other drugs, medicaments and biological substances; Z53.8 Procedure and treatment not carried out for other reasons
CPT/HCPCS: 36415 ×2; 93005; 85379; 83880; 80053; 83735; 84484 ×2; 85025; 85610; 85730; 71046; 99285; 96374; 96361; J1885

== ENCOUNTER → 2019-10-09 | Outpatient (CLI) | payer MEDICARE, OTHER ==
[2019-10-09 17:04] LABS: Chol/HDL Ratio 6.02; LDL Cholesterol,Calculated 154.8 mg/dL (0.0-131.0); VLDL Calculation 56.2 mg/dL (5.00-40.00)
== END | disposition home or self-care (01) ==
LOC: LABWHC1 10:34
PROVIDERS: ATTEND Nurse Practitioner
DX: E78.2 Mixed hyperlipidemia (principal)
CPT/HCPCS: 36415; 80061; 84450; 84460

== ENCOUNTER → 2020-06-13 | Outpatient (CLI) | payer MEDICARE, OTHER | END | disposition home or self-care (01) | LOC: LABWHC1 15:13 | PROVIDERS: ATTEND Family Medicine | DX: Z20.828 Contact with and (suspected) exposure to other viral communicable diseases (principal) | CPT/HCPCS: U0003; C9803 ==

== ENCOUNTER 2021-10-24 14:16 | Emergency (ER) | payer MEDICARE, OTHER ==
[2021-10-24 14:33] VITALS: BP 140/84; PULSE 86; RESP 20; TEMP 98
[2021-10-24] MEDS ORDERED: SOTROVIMAB (EUA) 500 MG in SODIUM CHLORIDE 0.9% 100 ML IVPB ONE (15:30)
--- NOTE | 2021-10-24 15:38 | ED ---
URI HPI - General Chief Complaint: Upper Respiratory Infection Stated Complaint: Covid+, Wants Infusion Time Seen by Provider: 10/24/21 14:38 Source: patient Mode of arrival: ambulatory Limitations: no limitations - History of Present Illness Initial Comments: 51 year-old male patient presents to the emergency department requesting monoclonal antibody infusion. States he started to feel unwell about a week ago with fatigue and body aches. States he subsequently developed cough and congestion. He tested positive for COVID at his doctor's office yesterday. He was started on steroids and azithromycin. Patient denies chest pain or shortness of breath. Denies fever or chills. Did have both vaccines and a booster. Patient denies any recent rash, abdominal pain, nausea, vomiting, diarrhea, constipation, back pain, numbness, tingling, dizziness, weakness, hematuria, dysuria, urinary urgency, urinary frequency, headache, visual changes, or any other complaints. - Related Data Home Medications Medication Instructions Recorded Confirmed ALPRAZolam [Xanax] 0.5 mg PO BID PRN 11/13/16 03/24/19 Ibuprofen [Motrin] 800 mg PO TID PRN 05/01/18 03/24/19 Fenofibrate [Lofibra] 160 mg PO HS 03/24/19 03/24/19 buPROPion HCL [Wellbutrin SR] 150 mg PO BID 03/24/19 03/24/19 Allergies Allergy/AdvReac Type Severity Reaction Status Date / Time sertraline HCl [From Zoloft] Allergy Unknown Anaphylaxis Verified 10/24/21 14:33 fluoxetine HCl [From Prozac] AdvReac Intermediate Disoriented, Verified 10/24/21 14:33 Verbally Violent rosuvastatin [From Crestor] AdvReac Confusion Verified 10/24/21 14:33 venlafaxine [From Effexor] AdvReac Nausea Verified 10/24/21 14:33 Review of Systems ROS Statement: Those systems with pertinent positive or pertinent negative responses have been documented in the HPI. ROS Other: All systems not noted in ROS Statement are negative. Past Medical History Past Medical History: Cancer, COPD, GERD/Reflux, Hyperlipidemia, Hypertension, Musculoskeletal Disorder, Osteoarthritis (OA), Sleep Apnea/CPAP/BIPAP Additional Past Medical History / Comment(s): s/p lumbar laminectomy decompression with fusion L4-S1. Other HX: coronary artery spasms,past stress test. gout,pain in back,dizziness, hx. H pylori, hiatal hernia, skin cancer, fatty liver, doens't use CPAP, occasional hand tremors, . COVID 11/03 History of Any Multi-Drug Resistant Organisms: None Reported Past Surgical History: Back Surgery, Heart Catheterization, Orthopedic Surgery Additional Past Surgical History / Comment(s): 05/15/15 Lumbar laminectomy with decompression and fusion L4-S1 with cell saver.pt stated he has a titanuim hoda, caging, screws in back Other SX: L carpal tunnel surg., EGD biopsy of stomach for Hpylori, moles removed Past Anesthesia/Blood Transfusion Reactions: Previous Problems w/ Anesthesia, Motion Sickness Additional Past Anesthesia/Blood Transfusion Reaction / Comment(s): slow to wake up w/anesthesia, clausterphobia Past Psychological History: Anxiety, Depression, Schizophrenia Smoking Status: Current every day smoker Past Alcohol Use History: None Reported Past Drug Use History: None Reported - Past Family History Mother Family Medical History: Cancer, Deep Vein Thrombosis (DVT), Pulmonary Embolus Additional Family Medical History / Comment(s): Skin ca Father Family Medical History: Cancer Additional Family Medical History / Comment(s): Bone CA General Exam Limitations: no limitations General appearance: alert, in no apparent distress, other (This is a well developed, well nourished adult male in no acute distress.) Respiratory exam: Present: normal lung sounds bilaterally. Absent: respiratory distress, wheezes, rales, rhonchi, stridor Cardiovascular Exam: Present: regular rate, normal rhythm, normal heart sounds. Absent: systolic murmur, diastolic murmur, rubs, gallop, clicks GI/Abdominal exam: Present: soft, normal bowel sounds. Absent: distended, tenderness, guarding, rebound, rigid Neurological exam: Present: alert, oriented X3, CN II-XII intact Psychiatric exam: Present: normal affect, normal mood Skin exam: Present: warm, dry, intact, normal color. Absent: rash Course Vital Signs 10/24/21 14:25 Temperature 98.0 F Pulse Rate 86 Respiratory 20 Rate Blood Pressure 140/84 O2 Sat by Pulse 99 Oximetry Medical Decision Making - Medical Decision Making 51-year-old male patient presents to the emergency department today requesting monoclonal antibody infusion after testing positive for COVID-19. Physical examination is unremarkable. Lungs are clear to auscultation with good air movement. He is saturating 96-97% on room air. She did receive the antibody infusion and had a possible reaction. About 3 minutes after the infusion started he developed cramping to his legs which then turned to "severe leg pain". Physical exam was normal. We stopped the medication, gave 1L IV fluid. Symptoms resolved. He'll be discharged to follow up with his primary care physician for recheck in 1-2 days. Continue azithromycin and steroids. Return parameters were discussed in detail. He verbalizes understanding and agrees with this plan. My attending is Dr. Rice. Disposition Clinical Impression: COVID-19 Disposition: HOME SELF-CARE Condition: Good Instructions (If sedation given, give patient instructions): COVID-19 (Coronavirus Disease 2019) (ED) Additional Instructions: Tips to help you feel better: -Maintain adequate fluid intake - especially water. -Rest, you are healing your body will require extra sleep. -Eat even if you do not feel like it - broth, jello, toast are fine if you cannot eat full meals. -Take tylenol and motrin alternating (if you have no allergies or have not been instructed to avoid these medications) to help with body aches and fevers. -Obtain over the counter vitamin C, zinc, and vitamin D3. -Take medications as prescribed. Follow-up with your primary care physician for recheck in 1-2 days. Return for any new, worsening, or concerning symptoms. Is patient prescribed a controlled substance at d/c from ED?: No Referrals: Lang Muro MD [Primary Care Provider] - 1-2 days Time of Disposition: 16:46
[2021-10-24] MEDS ORDERED: SODIUM CHLORIDE 0.9% 1,000 ML IV ONE (15:40)
[2021-10-24] MEDS ORDERED: SODIUM CHLORIDE 0.9% 50 ML IVPB ONE (16:00)
== END 2021-10-24 16:50 | disposition home or self-care (01) ==
LOC: EC 14:16
DX: U07.1 COVID-19 (principal); F17.200 Nicotine dependence, unspecified, uncomplicated; J44.9 Chronic obstructive pulmonary disease, unspecified; E78.5 Hyperlipidemia, unspecified; I10 Essential (primary) hypertension; Z88.8 Allergy status to other drugs, medicaments and biological substances; Z79.899 Other long term (current) drug therapy
CPT/HCPCS: 99283; 96360; Q0247

== ENCOUNTER → 2022-01-07 | Outpatient (CLI) | payer MEDICARE, OTHER ==
[2022-01-07 23:36] LABS: ALT 21 U/L (10-49); AST 19 U/L (14-35); African American GFR (CKD) 107.5 (60.0-200.0); Albumin 4.3 g/dL (3.8-4.9); Albumin/Globulin Ratio 1.85 (1.60-3.17); Alkaline Phosphatase 72 U/L (41-126); BUN/Creat Ratio 15.75 Ratio (12.00-20.00); Blood Urea Nitrogen 14.9 mg/dL (9.0-27.0); Calcium 9.3 mg/dL (8.7-10.3); Carbon Dioxide 26.9 mmol/L (20.0-27.5); Chloride 103 mmol/L (96-109); Globulin 2.3 g/dL (1.6-3.3); Glucose 94 mg/dL (70-110); LDL Cholesterol,Calculated 39.6 mg/dL (0.0-131.0); Non-African American GFR(CKD) 92.8 (60.0-200.0); Potassium 4.6 mmol/L (3.5-5.5); Sodium 137 mmol/L (135-145); Total Protein 6.6 g/dL (6.2-8.2)
== END | disposition home or self-care (01) ==
LOC: LABWHC1 07:54
PROVIDERS: ATTEND Internal Medicine Interventional Cardiology
DX: E78.2 Mixed hyperlipidemia (principal)
CPT/HCPCS: 36415; 80053; 80061

== ENCOUNTER 2022-12-28 07:53 | Day surgery (SDC) | payer MEDICARE, OTHER ==
[2022-12-28] MEDS ORDERED: diazePAM 5 MG TAB PO STA (08:53)
[2022-12-28] MEDS ORDERED: HYDROmorphone 0.5 MG/0.5 ML SYRINGE IVP STA (11:30)
[2022-12-28] MEDS ORDERED: HYDROcodone/APAP 7.5-325MG 1 EACH TAB PO PRN (16:03)
[2022-12-28] MEDS ORDERED: NITROGLYCERIN SL TABS 0.4 MG TAB SUBLINGUAL PRN (16:05)
[2022-12-28] MEDS: HYDROmorphone 0.5 MG/0.5 ML SYRINGE IVP PRN ×3 (17:10→23:26)
[2022-12-28] MEDS ORDERED: traMADol 50 MG TAB PO PRN (17:40)
[2022-12-28] MEDS: NICOTINE 21MG/24HR PATCH TRANSDERM SCH (18:16)
--- NOTE | 2022-12-28 18:49 | FL ---
Lumbar puncture and Myelogram. INDICATION: Pain FINDINGS: Fluoroscopy time: 37 seconds. Images obtained: 4. The procedure was explained to the patient. Risks complications and benefits were discussed. Alternat alexander were discussed. All questions were answered. Informed consent was obtained. A timeout was performed. The L4-5 level was chosen for access. Maximum barrier sterile technique was utilized. The skin was cl eansed with Betadine and the patient sterilely prepped and draped in the usual manner. The skin and d eeper tissue was anesthetized with 1% Lidocaine. Utilizing a 22-gauge spinal needle the spinal canal was accessed. Good CSF return was evident. Isovue-200 M was utilized, 11 milliliters was administere d under fluoroscopic observation. The stylette was replaced and the needle withdrawn. Fluoroscopic spot images were obtained. The patient tolerated the procedure well. Discharge instructions were discussed with the patient. Th e patient was transferred to CT for additional evaluation. Findings: Limited views of the lumbar spinal canal with contrast were obtained. See CT myelogram for full report. IMPRESSIONS: 1. Successful Lumbar Puncture for CT myelogram.
--- NOTE | 2022-12-28 18:55 | CT ---
EXAMINATION TYPE: CT lumbar spine w con DATE OF EXAM: 12/28/2022 COMPARISON: 09/17/2015 HISTORY: Radiculopathy, site unspecified. Myelogram. CT DLP: 427.40 mGycm CONTRAST: CT scan of the lumbar is performed with IV Contrast, patient injected with 11 mL of Isovue M200. TECHNIQUE: CT of the lumbar spine is performed on a spiral scan at 3 mm thick sections. Reconstructed images are performed in the coronal and sagittal planes. FINDINGS: Cord terminates at the L1-L2 level. T12-L1: No focal disc herniation or significant disc bulge is evident. No spinal canal stenosis or neural foraminal stenosis is present. L1-L2: No focal disc herniation or significant disc bulge is evident. No spinal canal stenosis or n eural foraminal stenosis is present L2-L3: No focal disc herniation or significant disc bulge is evident. No spinal canal stenosis or n eural foraminal stenosis is present L3-L4: Minimal bulging disc is present with intrathecal sac contact. However, facet hypertrophy and l igamentum flavum laxity have significant posterior-lateral thecal sac impression. This is narrowing t he spinal canal through this level. Mild left foraminal narrowing is present. L4-L5: No focal disc herniation is evident. Discogenic spacer is present. There is some narrowing bet ween the L4 and L5 vertebral bodies. No AP spinal canal stenosis is present. There is mild to moderat e right foraminal narrowing. L5-S1: No focal disc herniation or significant disc bulge is evident. No spinal canal stenosis or n eural foraminal stenosis is present Lumbar fixation L4-S1 is present. Beam hardening artifact from pedicle screws and fixation rods cause s some limitation through these levels. IMPRESSION: Spinal canal narrowing L3-4 due to facet hypertrophy and posterior impression from prominent ligament um flavum laxity. Spinal canal has narrowed from the comparison of 09/17/2015.
[2022-12-28] MEDS: GABAPENTIN 300 MG CAP PO SCH (20:11)
[2022-12-28] MEDS: CYCLOBENZAPRINE 5 MG TAB PO PRN (20:11)
[2022-12-28] MEDS: clonazePAM 0.5 MG TAB PO SCH (20:11)
[2022-12-28] MEDS ORDERED: cloNIDine HCL 0.1 MG TAB PO SCH (21:00)
[2022-12-28] MEDS ORDERED: clonazePAM 1 MG TAB PO SCH (21:00)
[2022-12-29] MEDS: HYDROmorphone 0.5 MG/0.5 ML SYRINGE IVP PRN ×2 (03:08→06:46)
[2022-12-29 03:21] VITALS: TEMP 97.6
[2022-12-29 07:43] VITALS: BP 112/73; PULSE 57; RESP 18
[2022-12-29] MEDS: clonazePAM 0.5 MG TAB PO SCH (08:28)
[2022-12-29] MEDS: GABAPENTIN 300 MG CAP PO SCH (08:28)
[2022-12-29] MEDS: NICOTINE 21MG/24HR PATCH TRANSDERM SCH (08:28)
[2022-12-29] MEDS ORDERED: buPROPion XL 300 MG TAB.ER.24H PO SCH (09:00)
[2022-12-29] MEDS: CYCLOBENZAPRINE 5 MG TAB PO PRN (11:15)
--- NOTE | 2022-12-29 11:37 | P.PN ---
Subjective Progress Note Date: 12/29/22 Principal diagnosis: Chronic back pain, history of previous lumbar surgery, recent CT myelogram lumbar spine Patient initially underwent a CT myelogram of the lumbar spine on 12/28/2022. After the procedure, patient was noted to have severe pain and was unable to be discharged home. Patient was admitted to [facility] for pain management and further observation. Patient was evaluated today at bedside, he is resting comfortably in his hospital bed. Patient does seem slightly overmedicated on exam today. Patient states that he does have chronic back pain, this to include paresthesias of the bilateral lower extremities along with weakness of the bilateral lower extremities. Patient states that the pain has eased up since the surgery. He had been utilizing gabapentin, tramadol, Flexeril and also Dilaudid. He states that the muscle relaxer doesn't do much for him. Currently has no headaches, lightheadedness, chest pain or shortness of breath. No acute changes in the overall paresthesias or weakness of the lower extremities. He denies loss of bowel or bladder function at this time. Objective - Vital Signs Vital signs: Vital Signs Temp 97.6 F 12/29/22 07:26 Pulse 57 L 12/29/22 07:26 Resp 18 12/29/22 07:26 BP 112/73 12/29/22 07:26 Pulse Ox 98 12/29/22 07:26 FiO2 Intake & Output 12/28/22 12/29/22 12/29/22 18:59 06:59 18:59 Intake Total 358 Balance 358 Intake: Oral 358 Other: # Voids 1 2 - Exam Gen: AOx3, NAD VSS stable at this time Integument: No obvious areas of erythema or fluctuance appreciated throughout the lower lumbar spine Palpation: Tenderness with palpation to the lumbar paraspinal region ROM: Full range of motion in all major muscle groups of the bilateral upper and lower extremities, no focal deficits appreciated Sensory Exam: Senory exam to light touch is intact C5-T1 Senosry exam to light touch is intact L2-S1 Motor: 4/5 strength in the right lower extremity with hip flexion, knee extension, plantar flexion, dorsiflexion, EHL, FHL 3+/5 strength appreciated in the left lower extremity with hip flexion, knee extension 4-/5 strength appreciated in the left lower extremity with plantar flexion, dorsiflexion, EHL, FHL Reflexes: 2/4 in all UE and LE Negative Babinski bilaterally, negative clonus bilaterally Special Test: Logroll maneuver the bilateral lower extremities reproduces no groin pain Assessment and Plan Assessment: Status post CT myelogram lumbar spine History of previous lumbar fusion Chronic back pain Bilateral lower extremity weakness Bilateral lower extremity paresthesias Plan: Patient is stable via the orthopedic standpoint for discharge to home Will utilize gabapentin 200 mg tablet with a tapering dose over the next 2 weeks. Patient also utilize [id number] Tylenol or anti-inflammatories as needed. Patient was made aware that we would try to avoid narcotics at this time. Recommending taking it easy over the next week or so until follow-up with Dr. Estrada. This to include no bending or twisting, no lifting over 10 pounds. Patient can utilize a walker/cane as needed for assistance with ambulation Plan for follow-up in office in 7-10 days Time with Patient: Less than 30
--- NOTE | 2022-12-29 11:41 | P.DS ---
Providers Date of admission: 12/28/2022 Expected date of discharge: 12/29/22 Attending physician: Korey Estrada DO Primary care physician: Lang Muro Hospital Course: Date of admission: 12/28/2022 Date of discharge: 12/29/2022 Admission diagnosis: Chronic low back pain, bilateral lower extremity weakness, bilateral lower extremity paresthesias, history of previous lumbar fusion, status post CT myelogram lumbar spine Discharge diagnosis: Same Attending physician: Dr. Estrada Surgical procedures: CT myelogram lumbar spine Brief history: Patient is a 52-year-old male with a history of chronic low back pain, previous lumbar fusion, bilateral lower extremity weakness and bilateral lower extremity paresthesias. Patient presents [facility] on 12/28/[address] myelogram from the radiology department. After the procedure during the forearm, he was noted to have significant pain and difficulty with ambulation. It was determined patient will be kept in hospital for observation and pain control. Hospital course: Pain control was achieved by 12/29/2022. We discussed different options for pain control for discharge. We discussed the use of gabapentin over the next 2 weeks. We discussed holding off on oral narcotics at this time. Discussion was had about activity level restrictions until follow-up with Dr. Estrada in the office. Discharge condition/disposition: Patient will be discharged [home] in stable condition. Discharge medications: Instructions are given on resumption of patient's normal daily medications per primary care recommendation, in addition patient will be prescribed gabapentin 200 mg. Discharge instructions: 1. Resume home medications 2. Take gabapentin as prescribed 3. No bending, twisting, lifting over 5 pounds 4. Utilize walker/cane for ambulation as needed 5. [facility]up [facility] Dr. Estrada in 7-10 days Procedures: CT myelogram lumbar spine Patient Condition at Discharge: Good Plan - Discharge Summary New Discharge Prescriptions: New Gabapentin [Neurontin] 200 mg PO DAILY #21 cap No Action buPROPion HCL [buPROPion HCL XL] 300 mg PO DAILY Nitroglycerin 0.5 mg PO ONCE PRN PRN Reason: Chest Pain clonazePAM [Clonazepam] 0.5 mg PO BID Discharge Medication List Nitroglycerin 0.5 mg PO ONCE PRN 12/21/22 [History] buPROPion HCL [buPROPion HCL XL] 300 mg PO DAILY 12/28/22 [History] clonazePAM [Clonazepam] 0.5 mg PO BID 12/28/22 [History] Gabapentin [Neurontin] 200 mg PO DAILY #21 cap 12/29/22 [Rx] Follow up Appointment(s)/Referral(s): Korey Estrada DO [Doctor of Osteopathic Medicine] - 1 Week Activity/Diet/Wound Care/Special Instructions: Orthopedic discharge instructions: 1. Resume home medication 2. Prescription for gabapentin provided, take as instructed 3. Avoid bending, twisting, lifting over 10 pounds for the next 7-10 days 4. Plan for follow-up [facility] with [facility]. Estrada in 7-10 days Discharge Disposition: HOME SELF-CARE
== END 2022-12-29 12:08 | disposition home or self-care (01) ==
LOC: RADPROMAIN 07:53 → 6NMEDSUR 09:59 → RADPROMAIN 12-29 12:08
PROVIDERS: ATTEND Orthopaedic Surgery
DX: M54.16 Radiculopathy, lumbar region (principal); G89.29 Other chronic pain; Z98.1 Arthrodesis status; Z79.1 Long term (current) use of non-steroidal anti-inflammatories (NSAID)
CPT/HCPCS: 62304; 72132; S4990 ×2; J1170 ×2; Q9966

== ENCOUNTER → 2023-02-04 | Outpatient (CLI) | payer MEDICARE, OTHER | END | disposition home or self-care (01) | LOC: LABPAT 10:38 | PROVIDERS: ATTEND Orthopaedic Surgery | DX: Z01.812 Encounter for preprocedural laboratory examination (principal); Z22.322 Carrier or suspected carrier of Methicillin resistant Staphylococcus aureus; M51.36 Other intervertebral disc degeneration, lumbar region | CPT/HCPCS: 87070 ==

== ENCOUNTER 2023-02-11 09:56 | Inpatient (IN) | payer MEDICARE, OTHER ==
[2023-02-07 14:37] VITALS: BMI 23.1
--- NOTE | 2023-02-11 08:33 | P.HPOR ---
History of Present Illness H&P Date: 02/04/23 .D:Date: 02/04/23 : 10:50am .T:Title: [facility] Date of :[birth year] [id number]: NKDA Age: 52 year Height: 5'8" Weight: 150 lbs BP:126/90 BMI: 22.81 kg/m2 Occupation: n/a VAS: 8 CHIEF COMPLAINT: Preoperative evaluation for revision L3-S1 decompression and fusion DOI: Chronic DOS: n/a Duration of current treatment regiment:n/a HISTORY: Xrays New xrays taken in office Trauma or injury No Work-Related No Pain description Aching, sharp, and pressure Location Posterior Patient notes that their pain radiates to bilateral lower extremities Activity Modification Yes Hand Dominance Right TREATMENTS COMPLETED: 6 weeks of PT completed? Month and Year of last PT date? No Physician directed home exercise completed? No Medications No; List: Voltaren, Flexeril, and Ketorolac Alternative interventions Chiropractic:No Massage therapy:No R.I.C.E:Yes Brace:No Injections No RFA:No SUBJECTIVE: Mr. Newell returns to the office today for a preoperative evaluation preceeding his previously scheduled revision L3-S1 decompression and fusion. he is doing okay today. He continues to have pain in his low back. He continues to have lower extremity radiculopathy. Conservative management has failed him at this time. He states that the medications at this time or not working either entity leaning more and more of the muscle relaxer. He denies fevers chills shortness of breath or chest pain. He denies any perineal numbness or tingling. No bowel or bladder issues at this time as well. States he is ready for surgery. HPI: Mr. Newell presents to the office on 01/06/2023 for an evaluation of their low back pain and to review CT myelogram results. Patient states that he continues to experience an aching lumbar pain that has been ongoing for many years and has been progressing since his previous surgery of an L4-S1 decompression and fusion performed by Dr. Joseph in [id number]. The patient states that he experiences an intermittent sharp shooting pain throughout the low back, though the dull ache is constant. In addition to theirlumbar pain, they do report that it radiates down into the bilateral lower extremities, associated with numbness and tingling. The patient states that his right lower extremity pain has increased since he was last evaluated in office. Overall, the patient has seen a progressive increase in their symptoms since their onset. Mr. Newell's symptoms are exacerbated with changing his position from sitting to standing, and due to this they note that it is increasingly difficult to complete many of their daily tasks. The patient is having moderate sleep disturbances as well due to their ongoing pain and associated symptoms. Regarding treatments, the patient has been taking Ketorolac, Flexeril, and Voltaren with mild relief. Otherwise the patient denies any f/c/sob/cp, no incision concerns, no bladder or bowel retention/incontinence, no perineal numbness/tingling, and ambulates independently today. Mr. Newell presents to the office on 11/24/2022 for an evaluation of their low back pain. Patient reports a aching, sharp, and pressure lumbar pain ongoing for many years and has been progressing since his previous back surgery of L4-S1 decompression and fusion performed by Dr. Joseph in [id number]. In addition to their lumbar pain, they do report that it radiates into the bilateral lower extremities, associated with numbness and tingling. Pateint states that he has noticed some weakness into his lower extremities. He does report that his right lower extremity is worse. Overall the patient has seen a progressive increase in symptoms since their onset. Mr. Newell symptoms are exacerbated with changing his position from sitting to standing with pressure and sharp pain, due to this they notes that it is increasingly difficult for Mr. Newell to complete many of their daily tasks. Patient is having moderate sleep disturbances as well due to their ongoing pain and associated symptoms. Regarding treatments, the patient denies trialing any modalities at this time. For their symptoms, the patient has been taking denies taking analgesics/anticoagulants/narcotics/SERGIO-analogs. Otherwise the patient denies any f/c/sob/cp, no incision concerns, no bladder or bowel retention/incontinence, no perineal numbness/tingling, and ambulates independently. The patients' past social, medical, family, surgical history, as well as review of systems, have been reviewed. Please refer to the Neurosurgery History and Physical form that has been scanned in to our electronic medical record system. 14 points review of systems completed and as stated in HPI, all other systems reviewed are negative. Social History: Reviewed, see appropriate section of the chart for details. P3 Family History: Reviewed, see appropriate section of the chart for details. P2 Past Medical History: Reviewed, see appropriate section of the chart for details. [id number] Medications: Rx: BUPROPION HCL 100MG XL ORAL Tablet, Ref: 11 Rx: KLONOPIN 0.5MG ORAL Tablet, Ref: 0 Rx: NITROSTAT 0.4MG Sublingual , Ref: 11 Rx: cloNIDine Ref: 0 Rx: cyclobenzaprine 10 mg tablet Ref: 0 Rx: ketorolac 10 mg tablet Ref: 0 Rx: Repatha Syringe 140 mg/mL subcutaneous syringe Ref: 0 PHYSICAL EXAMINATION: General:Awake, alert, appropriate for age, in no acute distress. HEENT:No unusual neck masses around region of lateral neck triangle, thyroid, supraclavicular groove Heart:Regular rate and rhythm, normal S1, S2 and no murmur/gallop. Lungs:Clear to auscultation bilaterally with no use of accessory muscles. Extremities: Skin warm and dry without acute lesions, coloration, temperature, skin intact, no tenderness or erythema Integument: Hairy patches:ABSENT Dorsal skin dimples:ABSENT Cafe au lait spots:ABSENT Palpation: Please see Pain drawing on Intake sheet for further detail. Midline spinal tenderness:Yes, very sensitive to touch E6 Cervical Tenderness: No E6 Paralumbar tenderness: Yes, very sensative to touch E6 Parathoracic tenderness:No E6 Buttocks tenderness:No E6 Sacroilliac Tenderness:yes Laterality: Right POSTURAL and MUSCULO-SKELETAL EVALUATION: Coronal Balance:NEUTRAL Recumbent testing:Patient isable to lay flat on back Sagittal Balance:NEUTRAL Shoulder Profile:LEVEL Pelvic Girdle:LEVEL Neck ROM:UNRESTRICTED Lumbar ROM:RESTRICTED Shoulder ROM:Symmetrical Hip ROM:Symmetrical Knee ROM:Symmetrical Hands:Normal appearance, symmetrical Feet:Normal appearance, Symmetrical VASCULAR STATUS : LEFT RIGHT Wrist Pulses INTACT INTACT Pedal Pulses (Dors. pedis & post.tibialis) INTACT INTACT Color NORMAL NORMAL Edema Absent Absent NEUROLOGIC EXAMINATION: Mental Status:Awake and alert, fully oriented, with normal attention, concentration and memory, and fluent, appropriate speech. Cranial Nerves: I: Olfactory not tested. II: Visual acuity normal, no visual field deficit noted with confrontation. III,IV: Normal pupillary reflexes & intact extraocular movements without nystagmus. V,: Intact symmetrical facial sensation. VII: Intact symmetrical facial motor movement VIII: Hearing intact. IX,X: Intact gag, swallow, & normal voice. XI: Sternocleidomastoid, trapezius function intact. XII: Tongue midline with normal movements. L'hermitte's Sign: Negative / absent Spurling'Sign: Absent bilaterally. Cubital percussion test: Absent bilaterally. Lan-Tinel sign - Carpal region: Absent bilaterally. Straight Leg Raising: Absent bilaterally. Crossed straight leg raise: negative O8 MOTOR EXAM (0-5/5, N/T Muscle appearance: Symmetrical, without signs of atrophy or dystrophy UPPER EXTREMITY RIGHT LEFT Shoulder Abduction 5/5 5/5 Biceps 5/5 5/5 Triceps 5/5 5/5 Wrist Extension 5/5 5/5 Hand Intrinsic 5/5 5/5 Prosthetic Aide 5/5 5/5 Hand and finger dexterity intact bilaterally? yes Disdiadochokinesis examination negative bilaterally? yes LOWER EXTREMITY RIGHT LEFT Hip Flexion 4/5 4-/5 Knee Extension 4/5 4-/5 Knee Flexion 4/5 4-/5 Dorsiflexion 4/5 4-/5 Plantarflexion 4/5 4-/5 EHL 4/5 4-/5 FHL 4/5 4-/5 Toe heel walk / heel-toe walk intact while maintaining satisfactory balance?No Single leg stance:Intact/ Trendelenburg sign negative bilaterally REFLEXES(0-4/2, NT)Upper ExtremityLower Extremity Right 2 2 Left 2 2 Pathological Reflexes RIGHT LEFT Lan's Absent Absent Clonus Absent Absent Babinski Absent Absent Sensory system (0-4, N/T) Test type RU TAZ RL LL Joint-Position 2 2 2 2 Vibration 2 2 2 2 Pain & LT sense 2 2 2 2 Dermatomal Deficit: None None L3-4 L3-5 Gait and Functional Evaluation: Ambulatory aids: Independent Romberg's test:Intact bilaterally Steady Gait RADIOGRAPHS CT myelogram from12/28/2022 performed at [facility]: images are reviewed with the patient demonstrated adjacent segment disease at L3-L4 with vacuum disc phenomenon this level. The spondylosis with moderate to severe stenosis in this area due to the ligamental hypertrophied facet hypertrophy and facet overgrowth as well as adjacent segment overgrowth. There is postsurgical changes from L3 through S1 which appears stable at this time. There is no fractures or dislocations otherwise noted. The remainder of the exam is stable XRay Lumbar AP/lateral 2 views with AP pelvis; [address] [facility] on 11/24/22: - re-reviewed with the patient in office today: Mild multilevel spondylitic changes with preserved alignment. Hardware noted L4- S1 from previous surgery, hardware is intact with no migration. Multilevel diminished disc height. No acute osseous abnormalities. ASSESSMENT 1. 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 Neurogenic claudication 3. Lower extremity weakness PLAN All options were reviewed today, we decided the best course of action would be: - I discussed treatment options with the patient, including operative and non- operative options, and they have elected to proceed with the following surgical procedure: Revision L3-S1 decompression and fusion The indications, risks, benefits, and alternatives to surgery were discussed with the patient and family at length. Specifically, but not limited to the risks of infection, stiffness, recurrence of symptoms, need for revision surgery, local numbness, neurovascular injury, and blood clots were discussed. The patient's questions were answered. - Ambulate daily - Take pain medications and post op medications as needed and as directed - Ice and rest for pain and swelling control. Spine Surgery Risk Review Mr. Newell is presenting for evaluation of low back and bilateral lower extremity pain. It was my pleasure to have seen and examined Mr. Newell. In our visit today we have had a chance to go over subjective complaints, physical examination findings and treatments including the natural course history without intervention and various interventional options. The patients imaging demonstrates: CT myelogram from12/28/2022 performed at [facility]: images are reviewed with the patient demonstrated adjacent segment disease at L3-L4 with vacuum disc phenomenon this level. The spondylosis with moderate to severe stenosis in this area due to the ligamental hypertrophied facet hypertrophy and facet overgrowth as well as adjacent segment overgrowth. There is postsurgical changes from L3 through S1 which appears stable at this time. There is no fractures or dislocations otherwise noted. The remainder of the exam is stable XRay Lumbar AP/lateral 2 views with AP pelvis; [address] [facility] on 11/24/22: - re-reviewed with the patient in office today: Mild multilevel spondylitic changes with preserved alignment. Hardware noted L4- S1 from previous surgery, hardware is intact with no migration. Multilevel diminished disc height. No acute osseous abnormalities. On physical exam, Mr. Newell demonstrates: an aching lumbar pain that has been ongoing for many years and has been progressing since his previous surgery of an L4-S1 decompression and fusion performed by Dr. Joseph in [id number]. The patient states that he experiences an intermittent sharp shooting pain throughout the l ow back, though the dull ache is constant. In addition to theirlumbar pain, they do report that it radiates down into the bilateral lower extremities, associated with numbness and tingling. The patient states that his right lower extremity pain has increased since he was last evaluated in office. Overall, the patient has seen a progressive increase in their symptoms since their onset. I have explained to the patient that as their condition progresses it will cause further neurological deficits and eventual paralysis. Based on the patients imaging, physical exam, and the rapid progression and disabling nature of their symptoms, at this time I recommend surgery in the form of a: revision L3-S1 decompression and fusion. I discussed the risk and benefits of this procedure at length with Mr. Newell. The patient agreed to considered pursuing the procedure abovementioned. Prior to surgery, she should follow up with her PCP (Cardio, ID, IM etc) for clearance. Questions were invited and answered, and the patient wishes to proceed as outlined below. Currently, I am recommendin.Revision L3-S1 decompression and fusion 2.Follow up with PCP and information tech for surgical clearance 3.Review of surgical risks and benefits as well as an educational packet on the proposed surgical procedure. Risks: All surgical procedures come with inherent risks, including those related to positioning, anesthesia, intraoperative findings, and postoperative compli cations. It is important to understand that surgery does not come with any guarantee of a successful outcome as complications and adverse events are always possible. The patient was given a handout in office today discussing the surgical procedure and risks associated with the intervention, both of which were discussed with the patient. These risks include but are not limited to the following: * Experiencing same, different or even worse symptoms in back, neck, arms, or legs compared to before surgery. Requiring further surgery or other forms of treatment presently or at some time in the future at same or other levels of the intended spine surgery. On an extreme but fortunately relatively rare basis severe complication such as blindness, stroke, heart attack, temporary and/or permanent nerve injury, paralysis, coma, or may occur, sometimes without known explanation. Surgical complications may include but are not limited to risk of infection, fluid accumulation in the surgical dissection site, including a seroma or hematoma, that requires additional surgery, wound drainage, bleeding, new numbness or weakness, vision changes/loss, spinal fluid leakage, non-healing and/or infected incision, headaches, difficulty or inability to swallow, hoarseness, hemopneumothorax, pneumothorax, impotence, retrograde ejaculation, vaginal dryness; injury to nerves, spinal cord, blood vessels, lymphatics or other vital organs (i.e., bowel injury, injury to the great vessels); heterotopic bone formation; complications related to the hardware such as screws, rods, cages including misplaced hardware, device failure, instrumentation at the wrong spine level, hardware fracture/breakage, or hardware loosening; vertebral failure of the spinal column above or below the newly placed hardware; retained surgical instrumentations or devices and the need for further surgery. * Medical risks of the planned spine surgery include but are not limited to generalized Infections to the whole body or local areas outside of the surgical site (sepsis), heart attack, bleeding, anaphylaxis, meningitis, seizure, epilepsy, hearing loss, burn callejas, laceration of the head or other areas of the body, bruising, hypersensitivity of the skin, bladder over distension; allergic reaction; shoulder injury related to positioning; fat, blood and air clots to other areas of the body like heart, lungs, brain; failure of internal organs such as lungs, kidneys, liver and excessive bleeding. If blood transfusions are necessary, note that transfusions may cause intolerance reactions such as anaphylaxis or other complex reactions. Despite best efforts, the results of spine surgery might not heal in terms of bone, soft tissues such as skin, fascia, ligaments, and joints. Additionally, in order to achieve best possible results, spine surgery may be carried out beyond the initially planned levels and involve decompression, fusion including insertion of hardware at levels other than the original intended area of surgical interest change some portions of the procedure in order to ensure the best possible outcomes. With spine surgery and spinal fusion, there are different off label uses of instrumentation (devices, implants and hardware) as well as biological substances (bone morphogenic proteins, demineralized bone matrix) as well as using extra bone from allograft sources (i.e. cadaver bone) or autograft (iliac crest bone, ribs, or the spine itself). The patient has been given information about these practices and their inherent risks and benefits. [facility] is an educational center that serves as a training facility for neurosurgical and orthopedic GLASS [employer] and Nursing students. Physician assistants are medically trained surgical providers who function in the outpatient, inpatient, and operating room setting under the direct supervision of the attending surgeon. [facility] has multiple operating rooms with single and overlapping james ms running daily. They currently function under the required guidelines as produced by the [facility] Finance Committee with regards to the overlapping rooms and will continue to comply with changes to this policy as they occur. The requirements include and are complied with as follows: (1) the critical portions of the overlapping rooms will not occur at the same time, (2) the attending physician will be physically present during the critical portions of the procedure and immediately available during the entire case, and (3) a back-up attending is designated should the primary attending not be immediately available. The patient has had a chance to review all the listed information, has been given print outs detailing this information, and has had all his/her questions answered to their satisfaction. It was my pleasure to have seen and examined Mr. Newell. In our visit today we have had a chance to go over my understanding of our patient's current condition, the natural course history without intervention and various interventional options. Questions were invited and answered, and the patient wishes to proceed as outlined above. I have seen and examined the patient for 25 minutes and we have spent more than 50% of the time in repeat and detailed counseling about the patient's condition, its natural course history with out and as much as can be predicted with surgery and re-review of various surgical treatment options. In conclusion, Mr. Newell requested we proceed with the above suggested surgery and are willing to accept risks and limitations of the suggested surgery as nature of the disease process and our best attempts at treatment for the condition. Thank you again for allowing us to be part of your patient's care. Please don't hesitate to contact me if you have any further questions. Follow- up: Post procedure Patient Education: (Informational booklet, instructions, etc) given at today's appointment: Yes .ED:Patient Education: Y Medications Reviewed: YES In our visit today Mr. Newell and I have had a chance to go over my understanding of the patient's current condition, the natural course history without intervention and various interventional options. Questions were invited and answered, and the patient wishes to proceed as outlined above. I will be sure to keep you updated afterMrMusa Newell returns here for further follow-up. Thank you again for your referral. Please do not hesitate to contact me if you have any further questions. Signed and authenticated by: Korey Salvador [facility] [address] [facility], [address] [address] This message is confidential, intended only for the named recipient(s) and may contain information that is privileged or exempt from disclosure under applicable law. If you are not the intended recipient(s), you are notified that the dissemination, distribution or copying of this information is strictly prohibited. If you received this message in error, please notify the sender then delete this message. Patient verbalizes understanding of the information discussed. The above note was initiated by Rupal Jones, physician recording library circulation assistant for Dr. Korey Estrada. This note has been reviewed by Dr. Estrada, who has made his personal changes and impressions for this document. CC: Lang Muro MD # SIGNED BY Korey Estrada (GOO)02/11/2023 08:32AM Past Medical History Past Medical History: Cancer, COPD, GERD/Reflux, Hearing Disorder / Deafness, Hyperlipidemia, Hypertension, Liver Disease, Musculoskeletal Disorder, Osteoarthritis (OA), Sleep Apnea/CPAP/BIPAP Additional Past Medical History / Comment(s): Coronary artery spasms, hx gout, chronic back pain, dizziness, hx. H Pylori, hiatal hernia, hx skin cancer, fatty liver, doens't use CPAP, occasional hand tremors, hx Covid 11/03, bilateral hearing aids. History of Any Multi-Drug Resistant Organisms: MRSA Date of last positivie culture/infection: 2014 MDRO Source:: from back surgery Past Surgical History: Back Surgery, Heart Catheterization, Orthopedic Surgery Additional Past Surgical History / Comment(s): Lumbar laminectomy with decompression and fusion L4-S1 with cell saver, titanuim hoda, screws and pins, left carpal tunnel surgery, EGD with biopsy of stomach for H Pylori, moles removed. Past Anesthesia/Blood Transfusion Reactions: Previous Problems w/ Anesthesia, Motion Sickness Additional Past Anesthesia/Blood Transfusion Reaction / Comment(s): With last surgery slow to wake up, clausterphobia. Past Psychological History: Anxiety, Depression, Schizophrenia Additional Psychological History / Comment(s): Multiple personality disorder. Smoking Status: Current every day smoker Past Alcohol Use History: None Reported Additional Past Alcohol Use History / Comment(s): Started smoking in 1997- has been and on and off smoker, on average 1/2 ppd. Past Drug Use History: None Reported - Past Family History Mother Family Medical History: Cancer, Deep Vein Thrombosis (DVT), Pulmonary Embolus Additional Family Medical History / Comment(s): Skin cancer. Heart problems. Father Family Medical History: Cancer Additional Family Medical History / Comment(s): Bone cancer. Medications and Allergies Home Medications Medication Instructions Recorded Confirmed Type Nitroglycerin 0.4 mg PO DIRECTED PRN 12/21/22 02/08/23 History buPROPion HCL [buPROPion HCL XL] 300 mg PO QAM 12/28/22 02/08/23 History Alirocumab [Praluent Pen] 75 mg SQ Q14D 02/08/23 02/08/23 [address] [facility] Night[facility] Sleep Aid 1 tab PO HS 02/08/23 02/08/23 History Cyclobenzaprine [Flexeril] 10 mg PO HS 02/08/23 02/08/23 History Gabapentin [Neurontin] 100 mg PO BID 02/08/23 02/08/23 History Gabapentin [Neurontin] 100 mg PO BID 02/08/23 02/08/23 History Ketorolac [Toradol] 10 mg PO Q6HR 02/08/23 02/08/23 History Multivitamin [Multivitamins Adult 1 each PO DAILY 02/08/23 02/08/23 History Gummies] OLANZapine 5 mg PO HS 02/08/23 02/08/23 History cloNIDine HCL 0.05 mg PO QAM 02/08/23 02/08/23 History cloNIDine HCL 0.15 mg PO HS 02/08/23 02/08/23 History Allergies Allergy/AdvReac Type Severity Reaction Status Date / Time sertraline HCl [From Zoloft] Allergy Unknown Anaphylaxis Verified 02/07/23 14:18 fluoxetine HCl [From Prozac] AdvReac Intermediate Disoriented, Verified 02/07/23 14:18 Verbally Violent quetiapine [From Seroquel] AdvReac Unknown Verified 02/07/23 14:18 rosuvastatin [From Crestor] AdvReac Confusion Verified 02/07/23 14:18 venlafaxine [From Effexor] AdvReac Nausea Verified 02/07/23 14:18 Physical Examination Osteopathic Statement: *. No significant issues noted on an osteopathic structural exam other than those noted in the History and Physical/Consult.
[~2023-02-11 09:56] MED LIST: ACETAMINOPHEN TAB 500 MG TAB PO PRN; GABAPENTIN 300 MG CAP PO PRN; ONDANSETRON 4 MG/2 ML VIAL IVP PRN; TRANEXAMIC 1,000 MG/100ML-NACL 1,000 MG in SALINE 1 100ML.BAG IVPB PRN
[2023-02-11] MEDS ORDERED: MIDAZOLAM 2 MG/2 ML VIAL IV PRN (10:02)
[2023-02-11] MEDS: LACTATED RINGERS 1,000 ML IV SCH (10:17)
[2023-02-11] MEDS ORDERED: LACTATED RINGERS 1,000 ML IV ONE ×2 (10:32→14:17)
[2023-02-11] MEDS ORDERED: THROMBIN (BOVINE) 5,000 UNIT VIAL TOPICAL ONE ×2 (12:47→13:39)
[2023-02-11] MEDS ORDERED: BUPIVACAINE (PF) 0.25% 30 ML VIAL SQ ONE ×2 (12:48→13:39)
[2023-02-11] MEDS ORDERED: LIDOCAINE 2% INJ 20 MG/ML (2 ML VIAL) ONE (12:50)
[2023-02-11] MEDS ORDERED: TRANEXAMIC 1,000 MG/100ML-NACL PREMIX BAG ONE (12:50)
[2023-02-11] MEDS ORDERED: NEOSTIGMINE 1 MG/ML 10 ML VIAL ONE (12:50)
[2023-02-11] MEDS ORDERED: MIDAZOLAM 2 MG/2 ML VIAL ONE (12:50)
[2023-02-11] MEDS ORDERED: SUCCINYLCHOLINE CHLORIDE 200 MG/10 ML VIAL IV ONE (12:50)
[2023-02-11] MEDS ORDERED: GLYCOPYRROLATE 0.2 MG/ML 2 ML VIAL ONE (12:50)
[2023-02-11] MEDS ORDERED: fentaNYL (PF) 50 MCG/ML 2 ML AMP ONE (12:50)
[2023-02-11] MEDS ORDERED: PROPOFOL 10 MG/ML 20 ML VIAL IV ONE (12:50)
[2023-02-11] MEDS ORDERED: ROCURONIUM 10 MG/ML (5 ML VIAL) IV ONE (12:50)
[2023-02-11] MEDS ORDERED: GELATIN SPONGE,ABSORB (LARGE) 1 EACH SPONGE TOPICAL ONE (13:39)
[2023-02-11] MEDS ORDERED: GENTAMICIN 80 MG in SODIUM CHLORIDE 0.9% IRRIGATIO 3,000 ML IRRIGATION ONE (13:43)
[2023-02-11] MEDS ORDERED: ceFAZolin 3,000 MG in SODIUM CHLORIDE 0.9% IRRIGATIO 3,000 ML IRRIGATION ONE (13:44)
[2023-02-11] MEDS ORDERED: VANCOMYCIN 1,000 MG VIAL MISCELLANE ONE (15:34)
--- NOTE | 2023-02-11 16:04 | XR ---
Fluoroscopy INDICATION: Pain FINDINGS: Fluoroscopy time: 32 seconds. Total dose area product (DAP) in uGy*m?, mGy*cm? (or similar): 748.611 Images obtained: 8. IMPRESSIONS: 1. Documentation of fluoroscopy.
[2023-02-11] MEDS ORDERED: HYDROmorphone 0.5 MG/0.5 ML SYRINGE IVP PRN (16:28)
[2023-02-11] MEDS ORDERED: MAGNESIUM HYDROXIDE 2,400 MG/30 ML CUP PO PRN (16:28)
[2023-02-11] MEDS ORDERED: HYDROcodone/APAP 5-325MG 1 EACH TAB PO PRN (16:28)
[2023-02-11] MEDS: HYDROmorphone 0.5 MG/0.5 ML SYRINGE IVP PRN ×2 (16:46→16:54)
[2023-02-11] MEDS: HYDROcodone/APAP 10-325MG 1 EACH TAB PO PRN (17:56)
[2023-02-11] MEDS: ACETAMINOPHEN TAB 325 MG TAB PO SCH (19:02)
[2023-02-11] MEDS: CYCLOBENZAPRINE 5 MG TAB PO PRN (19:02)
[2023-02-12] MEDS: ACETAMINOPHEN TAB 325 MG TAB PO SCH ×4 (00:53→20:29)
[2023-02-12] MEDS: HYDROcodone/APAP 10-325MG 1 EACH TAB PO PRN ×4 (00:53→21:47)
[2023-02-12] MEDS: HYDROmorphone 1 MG/ML 1 ML SYRINGE IVP PRN ×5 (01:42→20:30)
[2023-02-12] MEDS ORDERED: IPRATROPIUM-ALBUTEROL 3 ML NEB INHALATION PRN (03:55)
--- NOTE | 2023-02-12 03:57 | P.CONS ---
History of Present Illness - Reason for Consult Consult date: 02/11/23 post op eval - Chief Complaint L3-s1 decompression - History of Present Illness 53 year old male with COPD , cAD, HYPERTENSION coming in for scheduled revision of L3-s1 decompression and fusion, secondary to chronic low back pain with radiculopathy failed conservative management patient tolerated procedure well, no observed immediate post op complications, still reports low back pain , with weakness in bilateral legs. he denies chest pain , SOB, fever, chills, nausea or vomiting, he tolerated po intake review of systems Pertinent positives as noted in HPI. All other systems were reviewed and are negative on exam Constitutional: No acute distress, conversant, pleasant Eyes: Anicteric sclerae, moist conjunctiva, Pupils equal round reactive to light ENMT: NC/AT Oropharynx clear, no erythema, or exudates Lungs: Clear to auscultation Clear to percussion Normal respiratory effort, no accessory muscle use Cardiovascular: Heart regular in rate and rhythm, No murmurs, gallops, or rubs No peripheral edema Abdominal: Soft Nontender, no guarding, rebound or rigidity Abdomen moving with respiration Normoactive bowel sounds Extremities: No digital cyanosis No clubbing Pedal pulses intact and symmetrical Radial pulses intact and symmetrical No calf tenderness Psychiatric: Alert and oriented to person, place and time Appropriate affect Neuro Muscles Strength 4/5 in all 4 extremities Sensation to light touch grossly present throughout Cranial nerves II-XII grossly intact Lymphatics: no palpable cervical or supraclavicular lymph nodes Past Medical History Past Medical History: Cancer, COPD, GERD/Reflux, Hearing Disorder / Deafness, Hyperlipidemia, Hypertension, Liver Disease, Musculoskeletal Disorder, Osteoarthritis (OA), Sleep Apnea/CPAP/BIPAP Additional Past Medical History / Comment(s): Coronary artery spasms, hx gout, chronic back pain, dizziness, hx. H Pylori, hiatal hernia, hx skin cancer, fatty liver, doens't use CPAP, occasional hand tremors, hx Covid 11/03, bilateral hearing aids. History of Any Multi-Drug Resistant Organisms: MRSA Year Discovered:: 2014 MDRO Source:: from back surgery Past Surgical History: Back Surgery, Heart Catheterization, Orthopedic Surgery Additional Past Surgical History / Comment(s): Lumbar laminectomy with decompression and fusion L4-S1 with cell saver, titanuim hoda, screws and pins, left carpal tunnel surgery, EGD with biopsy of stomach for H Pylori, moles removed. Past Anesthesia/Blood Transfusion Reactions: Previous Problems w/ Anesthesia, Motion Sickness Additional Past Anesthesia/Blood Transfusion Reaction / Comm: With last surgery slow to wake up, clausterphobia. Past Psychological History: Anxiety, Depression, Schizophrenia Additional Psychological History / Comment(s): Multiple personality disorder. Smoking Status: Current every day smoker Past Alcohol Use History: None Reported Additional Past Alcohol Use History / Comment(s): Started smoking in 1997- has been and on and off smoker, on average 1/2 ppd. Past Drug Use History: None Reported - Past Family History Mother Family Medical History: Cancer, Deep Vein Thrombosis (DVT), Pulmonary Embolus Additional Family Medical History / Comment(s): Skin cancer. Heart problems. Father Family Medical History: Cancer Additional Family Medical History / Comment(s): Bone cancer. Medications and Allergies Home Medications Medication Instructions Recorded Confirmed Type Nitroglycerin 0.4 mg PO DIRECTED PRN 12/21/22 02/11/23 History buPROPion HCL [buPROPion HCL XL] 300 mg PO QAM 12/28/22 02/11/23 History Alirocumab [Praluent Pen] 75 mg SQ Q14D 02/08/23 02/11/23 [address] [facility] Sleep [facility] 1 tab PO HS 02/08/23 02/11/23 History Cyclobenzaprine [Flexeril] 10 mg PO HS 02/08/23 02/11/23 History Gabapentin [Neurontin] 100 mg PO BID 02/08/23 02/11/23 History Gabapentin [Neurontin] 100 mg PO BID 02/08/23 02/11/23 History Ketorolac [Toradol] 10 mg PO Q6HR 02/08/23 02/11/23 History Multivitamin [Multivitamins Adult 1 each PO DAILY 02/08/23 02/11/23 History Gummies] OLANZapine 5 mg PO HS 02/08/23 02/11/23 History cloNIDine HCL 0.05 mg PO QAM 02/08/23 02/11/23 History cloNIDine HCL 0.15 mg PO HS 02/08/23 02/11/23 History Allergies Allergy/AdvReac Type Severity Reaction Status Date / Time sertraline HCl [From Zoloft] Allergy Unknown Anaphylaxis Verified 02/11/23 10:13 fluoxetine HCl [From Prozac] AdvReac Intermediate Disoriented, Verified 02/11/23 10:13 Verbally Violent quetiapine [From Seroquel] AdvReac Unknown Verified 02/11/23 10:13 rosuvastatin [From Crestor] AdvReac Confusion Verified 02/11/23 10:13 venlafaxine [From Effexor] AdvReac Nausea Verified 02/11/23 10:13 Physical Exam Vitals: Vital Signs Temp Pulse Pulse Resp BP BP Pulse Ox 02/12/23 01:02 98.6 F 90 16 124/63 96 02/11/23 19:59 82 133/75 02/11/23 19:45 81 126/68 02/11/23 19:29 75 125/76 02/11/23 19:16 92 117/73 02/11/23 19:00 100 139/79 94 L 02/11/23 18:59 72 139/79 94 L 02/11/23 18:45 100 136/89 99 02/11/23 18:29 95 142/86 93 L 02/11/23 18:00 70 137/75 02/11/23 17:45 76 156/76 96 02/11/23 17:15 69 16 167/87 94 L 02/11/23 16:57 83 16 168/85 99 02/11/23 16:41 74 16 158/77 99 02/11/23 16:26 97.3 F L 65 12 169/83 97 02/11/23 10:11 97.5 F L 65 18 118/70 97 Intake and Output 02/11/23 02/11/23 02/12/23 14:59 22:59 06:59 Intake Total 1552 300 Output Total 990 190 Balance 1552 -690 -190 Intake: IV 1552 300 Output: Drainage 40 190 Back 40 190 Urine 600 Estimated Blood Loss 350 Other: Voiding Method Indwelling Catheter Weight 65.7 kg 65.7 kg Assessment and Plan Assessment: chronic low back pain , revision L3-s1 decompression and fusion POD zero management and pain control per orthopedics hypertension , controlled resume clonidine copd, compensated resume inhalers supplemental oxygen as needed stable from medical stand point follow up blood work cbc, cmp post op full code thank you for this consultation
[2023-02-12] MEDS: CYCLOBENZAPRINE 5 MG TAB PO PRN ×3 (05:05→20:29)
[2023-02-12 08:13] LABS: Basophils % (A) 0 %; Eosinophils # (A) 0.1 k/uL (0-0.7); Eosinophils % (A) 1 %; HCT 40.6 % (39.0-53.0); HGB 13.8 gm/dL (13.0-17.5); Lymphocytes # (A) 1.1 k/uL (1.0-4.8); Lymphocytes % (A) 11 %; MCH 30.8 pg (25.0-35.0); MCV 90.8 fL (80.0-100.0); Mean Platelet Volume 8.3; Monocytes # (A) 0.7 k/uL (0-1.0); Monocytes % (A) 7 %; Neutrophils # (A) 7.9 k/uL (1.3-7.7); Neutrophils % (A) 80 %; Platelet Count 191 k/uL (150-450); RBC 4.47 m/uL (4.30-5.90); RDW 12.8 % (11.5-15.5); WBC 9.9 k/uL (3.8-10.6)
[2023-02-12] MEDS: buPROPion XL 300 MG TAB.ER.24H PO SCH (08:16)
[2023-02-12] MEDS: cloNIDine HCL 0.1 MG TAB PO SCH ×2 (08:16→20:30)
[2023-02-12] MEDS: GABAPENTIN 100 MG CAP PO SCH ×2 (08:16→20:29)
[2023-02-12 08:26] LABS: African American GFR (CKD) >90 (>60 ml/min/1.73 sqM); Anion Gap 6 mmol/L; Blood Urea Nitrogen 12 mg/dL (9-20); Calcium 8.4 mg/dL (8.4-10.2); Carbon Dioxide 26 mmol/L (22-30); Chloride 105 mmol/L (98-107); Glucose 120 mg/dL (74-99); Non-African American GFR(CKD) 87 (>60 ml/min/1.73 sqM); Sodium 137 mmol/L (137-145)
--- NOTE | 2023-02-12 08:37 | P.PN ---
Subjective Progress Note Date: 02/12/23 Principal diagnosis: L3-L4 spondylosis and stenosis with adjacent segment disease; neurogenic claudication; lower extremity weakness Patient was seen at bedside this morning lying in semirecumbent position with drain and dressing in place over lumbar spine. There has been moderate serosanguineous output and drain. Patient says he is having low back pain at this time with some numbness and tingling down the bilateral lower extremities. Farmer is in place currently at this time. Patient is looking forward to working with physical therapy later this morning. Patient denies any other changes this time. Patient denies chest pain, fever, shortness breath, nausea, like 1 change in vision, loss of bowel/bladder control. Objective - Vital Signs Vital signs: Vital Signs Temp 98.6 F 02/12/23 01:02 Pulse 90 02/12/23 01:02 Resp 16 02/12/23 01:02 BP 124/63 02/12/23 01:02 Pulse Ox 96 02/12/23 01:02 FiO2 Intake & Output 02/11/23 02/12/23 02/12/23 18:59 06:59 18:59 Intake Total 1852 Output Total 950 230 Balance 902 -230 Weight 65.7 kg 65.7 kg Intake: IV 1852 Output: Drainage 230 Back 230 Urine 600 Estimated Blood Loss 350 Other: Voiding Method Indwelling Catheter - Exam Surgical dressing present over lumbar spine. There is minimal spotting at this time. [place] are well aligned intact. Negative for any active drainage. Negative for any fluctuance/purulence. Drain is present as well. There is moderate serosanguineous output. We'll maintain drain for now keep to full suction. Sensation is equal, symmetric, by intact throughout the upper extremities. There is dermatomal deficit the left lower extremity from L3 through L5. There is some tenderness to palpation directly over incision. Nontender to palpation throughout rest exam. Patient does have full range of motion bilateral upper extremities on exam. There is some limited range of motion in bilateral lower extremities in hip flexion/extension and knee flexion/extension due to referred pain from the low back.4+/5 in all major motor groups in bilateral upper extremities. 4-/5 in all major motor groups and left lower extremity. 4/5 in all major motor and right lower extremity. Radial pulse intact, 2+ bilaterally. Cap refill under 3 seconds in digits upper extremities. Negative Homans bilaterally. - Labs CBC & Chem 7: 02/12/23 07:39 02/12/23 07:39 Assessment and Plan Assessment: 1. L3-L4 spondylosis and stenosis with adjacent segment disease; neurogenic claudication; lower extremity weakness - Postop day 1 status post revision L3-S1 decompression and fusion Plan: 1. L3-L4 spondylosis and stenosis with adjacent segment disease; neurogenic claudication; lower extremity weakness - surgery performed yesterday, 02/11/2023revision L3-S1 decompression and fusion. Patient stable at bedside this morning. Patient says he is having low back pain at this time. Patient says he is having some numbness tingling down both lower extremities. Dressing and drain are in place over lumbar spine. There has been moderate serosanguineous output in drain. We'll maintain drain at this time. We'll continue to follow patient during his stay in hospital 2. Appreciate medical management 3. Pain management - [place]; gabapentin; Flexeril; Dilaudid only as necessary 4. GI prophylaxis - senna 5. DVT prophylaxis - mechanical 6. PT/OT - weightbearing aside with walker and assistance. LSO brace ordered. Okay to weight-bear without brace 7. Encourage incentive spirometer use 8. Discharge planning - pending Time with Patient: Less than 30
[2023-02-12] MEDS ORDERED: GABAPENTIN 100 MG CAP PO SCH (09:00)
[2023-02-12] MEDS: LACTATED RINGERS 1,000 ML IV SCH (11:39)
--- NOTE | 2023-02-12 11:49 | CT ---
EXAMINATION TYPE: CT lumbar spine wo con DATE OF EXAM: 02/12/2023 COMPARISON: 29/12/1622 HISTORY: S/P Revision L3-S1 decompression fusion CT DLP: 818.4 mGycm CONTRAST: None TECHNIQUE: CT of the lumbar spine is performed on a spiral scan at 3 mm thick sections. Reconstructed images are performed in the coronal and sagittal planes. FINDINGS: Paraspinal facet air is present from the patient's lumbar surgery. Pedicle screws are place d L3, L4, L5 and S1. T12-L1: No focal disc herniation or significant disc bulge is evident. No spinal canal stenosis or neural foraminal stenosis is present. L1-L2: No focal disc herniation or significant disc bulge is evident. No spinal canal stenosis or n eural foraminal stenosis is present L2-L3: Broad-based disc bulge has mild anterior thecal sac flattening. No AP spinal canal stenosis is present. Neural foramen are patent. L3-L4: Some beam hardening artifact is present limiting evaluation. This level is been decompressed. No stenosis is evident. L4-L5: Beam hardening artifact is present causing some limitation. No obvious stenosis. This level is decompressed. L5-S1: Beam hardening artifact is present. No spinal canal stenosis is present. Neural foramen are pa tent. Mild scoliosis with convexity to the left is present in the coronal plane. IMPRESSION: Postsurgical changes through the L3-S1 spine. No residual canal stenosis identified
--- NOTE | 2023-02-12 11:51 | FL ---
Fluoroscopy INDICATION: Pain FINDINGS: Fluoroscopy time: 32 seconds. Total dose area product (DAP) in uGy*m?, mGy*cm? (or similar): 740.611 Images obtained: 8. IMPRESSIONS: 1. Documentation of fluoroscopy.
--- NOTE | 2023-02-12 15:36 | P.PN ---
Subjective Progress Note Date: 02/12/23 Patient is a 53-year-old male for history of COPD, GERD, hypertension, dyslipidemia, liver disease, and osteoarthritis who presented for L3 to S1 decompression and fusion Patient seen and examined at bedside. He is complaining of dizziness and low back pain. He is also feeling as though his legs are very heavy Vital signs reviewed General: nontoxic, no distress, appears at stated age Cardiovascular: S1S2 reg, no murmur, positive posterior tibial pulse bilateral, Lungs: Decreased bs bilateral, no rhonchi, no rales , no accessory muscle use Abdominal: soft, nontender to palpation, no guarding, no appreciable organomegaly, hemovac with serious drainiage Ext: no gross muscle atrophy, no edema b/l lower extremities, no contractures Neuro: CN II-XI grossly intact, no focal neuro deficits Psych: Alert, oriented, appropriate affect Assessment: 53-year-old male status post L3 to S1 decompression and fusion Dizziness-check orthostatic vital signs: Reviewed they are joshua do show an increase in HR 109 though I suspect this is related to pain as blood pressure is reacting appropriately -Continue with gentle IV fluids COPD without exacerbation Hypertension -Follow blood pressures -Continue with Catapres 0.05 mg every morning, 0.15 mg by mouth at bedtime, -Continue with when necessary DuoNeb's, patient has not required any Schizophrenia -Continue patient's olanzapine, clonidine, Wellbutrin Chronic: Heart of hearing Fatty liver Obstructive sleep apnea without CPAP use Occasional hand tremor Coronary spasms Dyslipidemia Imaging: None new Data Review: Vitals reviewed from this morning temperature 98.3, pulse 85, respirations 18, blood pressure 115/71, O2 sat 95% on room air Urinalysis reviewed and remarkable for glucose of 120 DVT prophylaxis: per ortho Thank you for allowing us to participate in the care of this pleasant patient. Do not hesitate to contact us with questions. Someone can be reached from the [facility] hospitalist group all hours of the day at [phone] or via perfect serve. This dictation was prepared using [employer] voice recognition software. Though every attempt is made to correct errors during dictation some may still exist. Objective - Vital Signs Vital signs: Vital Signs Temp 98.5 F 02/12/23 14:00 Pulse 83 02/12/23 14:00 Resp 17 07/01/23 14:00 BP 112/74 02/12/23 14:00 Pulse Ox 96 02/12/23 14:00 FiO2 Intake & Output 02/11/23 02/12/23 02/12/23 18:59 06:59 18:59 Intake Total 1852 Output Total 950 1180 850 Balance 902 -1180 -850 Weight 65.7 kg 65.7 kg Intake: IV 1852 Output: Drainage 230 100 Back 230 100 Urine 600 950 750 Estimated Blood Loss 350 Other: Voiding Method Indwelling Catheter - Labs CBC & Chem 7: 02/12/23 07:39 02/12/23 07:39 Labs: Abnormal Lab Results - Last 24 Hours (Table) 02/12/23 02/12/23 Range/Units 07:39 07:39 Neutrophils # 7.9 H (1.3-7.7) k/uL Glucose 120 H (74-99) mg/dL
[2023-02-12] MEDS: SENNOSIDES-DOCUSATE SODIUM 1 EACH TAB PO PRN (16:28)
[2023-02-12] MEDS: OLANZapine 5 MG TAB PO SCH (20:29)
[2023-02-13] MEDS: ACETAMINOPHEN TAB 325 MG TAB PO SCH ×4 (00:12→18:25)
[2023-02-13] MEDS: CYCLOBENZAPRINE 5 MG TAB PO PRN ×2 (06:20→21:17)
[2023-02-13] MEDS: HYDROcodone/APAP 10-325MG 1 EACH TAB PO PRN ×3 (06:21→21:17)
[2023-02-13] MEDS ORDERED: polyethylene glycoL 3350 17 GM POWD.PACK PO STA (09:29)
[2023-02-13] MEDS ORDERED: SENNOSIDES-DOCUSATE SODIUM 1 EACH TAB PO STA (09:29)
[2023-02-13 09:32] LABS: HCT 38.4 % (39.6-50.0); HGB 13.1 d/dL (12.0-15.0); MCH 30.8 pg (27.0-32.0); MCHC 34.1 d/dL (32.0-37.0); MCV 90.4 FL (80.0-97.0); Mean Platelet Volume 11.4 FL (9.5-12.2); NRBC Per 100 WBC 0 X 10*3/uL (0.00-0.01); Platelet Count 156 X 10*3/uL (140-440); RBC 4.25 X 10*6/uL (4.40-5.60); RDW 12.5 % (11.5-14.5); WBC 9.87 X 10*3/uL (4.50-10.00)
[2023-02-13] MEDS: HYDROmorphone 1 MG/ML 1 ML SYRINGE IVP PRN (09:36)
[2023-02-13] MEDS: SENNOSIDES-DOCUSATE SODIUM 1 EACH TAB PO PRN (09:36)
[2023-02-13] MEDS: buPROPion XL 300 MG TAB.ER.24H PO SCH (09:38)
[2023-02-13] MEDS: cloNIDine HCL 0.1 MG TAB PO SCH (09:38)
[2023-02-13] MEDS: GABAPENTIN 100 MG CAP PO SCH (09:39)
--- NOTE | 2023-02-13 09:52 | P.PN ---
Subjective Progress Note Date: 02/13/23 Principal diagnosis: L3-L4 spondylosis and stenosis with adjacent segment disease; neurogenic claudication; lower extremity weakness Patient was seen at bedside this morning lying in semirecumbent position with drain and dressing in place over lumbar spine. There has been moderate serosanguineous output and drain. Patient says he is having low back pain at this time with some numbness and tingling down the bilateral lower extremities. Farmer is in place currently at this time. Patient is hoping to have his Farmer removed today. Patient is looking forward to working with physical therapy later this morning. Patient denies any other changes this time. Patient denies chest pain, fever, shortness breath, nausea, change in vision, loss of bowel/bladder control. Objective - Vital Signs Vital signs: Vital Signs Temp 98.4 F 02/13/23 07:08 Pulse 89 02/13/23 07:08 Resp 18 02/13/23 07:08 BP 106/65 02/13/23 07:08 Pulse Ox 93 L 02/13/23 07:08 FiO2 Intake & Output 02/12/23 02/13/23 02/13/23 18:59 06:59 18:59 Output Total 950 1260 60 Balance -950 -1260 -60 Output: Drainage 200 60 60 Back 200 60 60 Urine 750 1200 Other: Voiding Method Indwelling Catheter Indwelling Catheter - Exam Surgical dressing present over lumbar spine. There is minimal spotting at this time. [place] are well aligned intact. Negative for any active drainage. Negative for any fluctuance/purulence. Drain is present as well. There is moderate serosanguineous output. Dressing changes at bedside. There is decreasing output in the drain. We have moved drain to gravity at this time. Sensation is equal, symmetric, by intact throughout the upper extremities. There is dermatomal deficit the left lower extremity from L3 through L5. There is some tenderness to palpation directly over incision. Nontender to palpation throughout rest exam. Patient does have full range of motion bilateral upper extremities on exam. There is some limited range of motion in bilateral lower extremities in hip flexion/extension and knee flexion/extension due to referred pain from the low back.4+/5 in all major motor groups in bilateral upper extremities. 4-/5 in all major motor groups and left lower extremity. 4/5 in all major motor and right lower extremity. Radial pulse intact, 2+ bilaterally. Cap refill under 3 seconds in digits upper extremities. Negative Homans bilaterally. - Labs CBC & Chem 7: 02/13/23 05:34 02/12/23 07:39 Labs: Abnormal Lab Results - Last 24 Hours (Table) 02/13/23 Range/Units 05:34 RBC 4.25 L (4.40-5.60) X 10*6/uL Hct 38.4 L (39.6-50.0) % Assessment and Plan Assessment: 1. L3-L4 spondylosis and stenosis with adjacent segment disease; neurogenic claudication; lower extremity weakness - Postop day 2 status post revision L3-S1 decompression and fusion Plan: 1. L3-L4 spondylosis and stenosis with adjacent segment disease; neurogenic claudication; lower extremity weakness - surgery performed 02/11/2023revision L3-S1 decompression and fusion. Patient stable at bedside this morning. Patient says he is having low back pain at this time. Patient says he is having some numbness tingling down both lower extremities. Dressing and drain are in place over lumbar spine. New dressing placed over incision. Incision appears be healing well at this time. There has been moderate serosanguineous output in drain. We have moved drain to gravity at this time. Possible removal of drain tomorrow. Remove Farmer at bedside today. We'll maintain drain at this time. We'll continue to follow patient during his stay in hospital. Plan for discharge home within the next few days 2. Appreciate medical management 3. Pain management - [place]; gabapentin -> 300 mg TID; Flexeril; Dilaudid only as necessary 4. GI prophylaxis - senna 5. DVT prophylaxis - mechanical 6. PT/OT - weightbearing aside with walker and assistance. LSO brace ordered. Okay to weight-bear without brace 7. Encourage incentive spirometer use 8. Discharge planning -Plan for discharge home within the next few days Time with Patient: Less than 30
[2023-02-13 10:16] LABS: BUN/Creat Ratio 10.12 Ratio (12.00-20.00); Blood Urea Nitrogen 8.1 mg/dL (9.0-27.0); Calcium 8.7 mg/dL (8.7-10.3); Carbon Dioxide 26.1 mmol/L (21.6-31.8); Chloride 101 mmol/L (96-109); Glucose 108 mg/dL (70-110); Potassium 3.9 mmol/L (3.5-5.5); Sodium 137 mmol/L (135-145)
[2023-02-13] MEDS: LACTATED RINGERS 1,000 ML IV SCH (11:41)
--- NOTE | 2023-02-13 15:06 | P.PN ---
Subjective Progress Note Date: 02/13/23 (delayed charting seen at 0830) Patient is a 53-year-old male for history of COPD, GERD, hypertension, dyslipidemia, liver disease, and osteoarthritis who presented for L3 to S1 decompression and fusion Patient seen and examined at bedside. He still has some dizziness. He is feeling likely better than yesterday. His pain is better controlled. He continues to complain of constipation. Vital signs reviewed General: nontoxic, no distress, appears at stated age Cardiovascular: S1S2 reg, no murmur, positive posterior tibial pulse bilateral, Lungs: Decreased bs bilateral, no rhonchi, no rales , no accessory muscle use Abdominal: soft, nontender to palpation, no guarding, no appreciable organomegaly, hemovac with serious drainiage Ext: no gross muscle atrophy, no edema b/l lower extremities, no contractures Neuro: CN II-XI grossly intact, no focal neuro deficits Psych: Alert, oriented, appropriate affect Assessment: 53-year-old male status post L3 to S1 decompression and fusion- orthospine note reviewed: contineu hemovac and goins outodays. Dizziness, improved - orthostatic negative, suspect related to medications Constipation - senna to scheduled and prn - miralax 17G X 1 now COPD without exacerbation Hypertension -Follow blood pressures -Continue with Catapres 0.05 mg every morning, 0.15 mg by mouth at bedtime, -Continue with when necessary DuoNeb's, patient has not required any Schizophrenia -Continue patient's olanzapine, clonidine, Wellbutrin Chronic: Heart of hearing Fatty liver Obstructive sleep apnea without CPAP use Occasional hand tremor Coronary spasms Dyslipidemia Imaging: None new Data Review: Vitals reviewed in T-max the last 24 hours 99.4, pulse 89, respirations 18, blood pressure 106/65, O2 sat 93% on room air Labs reviewed hemoglobin 13.1, sodium 137, potassium 3.9, creatinine 0.8 DVT prophylaxis: per ortho Thank you for allowing us to participate in the care of this pleasant patient. Do not hesitate to contact us with questions. Someone can be reached from the [facility] hospitalist group all hours of the day at [phone] or via perfect serve. This dictation was prepared using [employer] voice recognition software. Though every attempt is made to correct errors during dictation some may still exist. Objective - Vital Signs Vital signs: Vital Signs Temp 97.8 F 02/13/23 14:05 Pulse 101 H 02/13/23 14:05 Resp 18 02/13/23 14:05 BP 122/81 02/13/23 14:05 Pulse Ox 98 02/13/23 14:05 FiO2 Intake & Output 02/12/23 02/13/23 02/13/23 18:59 06:59 18:59 Output Total 950 1260 60 Balance -950 -1260 -60 Output: Drainage 200 60 60 Back 200 60 60 Urine 750 1200 Other: Voiding Method Indwelling Catheter Indwelling Catheter Indwelling Catheter - Labs CBC & Chem 7: 02/13/23 05:34 02/13/23 05:34 Labs: Abnormal Lab Results - Last 24 Hours (Table) 02/13/23 02/13/23 Range/Units 05:34 05:34 RBC 4.25 L (4.40-5.60) X 10*6/uL Hct 38.4 L (39.6-50.0) % BUN 8.1 L (9.0-27.0) mg/dL BUN/Creatinine Ratio 10.12 L (12.00-20.00) Ratio
[2023-02-13] MEDS: ONDANSETRON 4 MG/2 ML VIAL IVP PRN (16:43)
--- NOTE | 2023-02-13 17:53 | XR ---
EXAMINATION TYPE: XR abdomen acute w cxr DATE OF EXAM: 02/13/2023 COMPARISON: NONE HISTORY: Vomiting TECHNIQUE: 4 views of the chest and abdomen were obtained including supine and upright views of the a bdomen. FINDINGS: There is mild atelectasis in the left lung base but there is no free intraperitoneal air beneath the diaphragm. There are postsurgical changes of lower lumbar spine metallic fusion. There are skin [place] indicati ng recent surgery. There is a drainage catheter the region of the lumbar spine. There is diffuse air within the colon but the bowel gas pattern is nonspecific and there is no eviden ce of obstruction. IMPRESSION: 1. Mild atelectasis left lung base. 2. No free intraperitoneal air. 3. Large amount of gas within the colon but nonspecific bowel gas pattern. No evidence of bowel obstr uction. 4. Postsurgical changes of recent lumbar fusion with drainage catheter.
[2023-02-13] MEDS: GABAPENTIN 300 MG CAP PO SCH ×2 (18:24→21:17)
[2023-02-13] MEDS: OLANZapine 5 MG TAB PO SCH (21:17)
[2023-02-14] MEDS: ACETAMINOPHEN TAB 325 MG TAB PO SCH ×5 (00:32→21:34)
[2023-02-14] MEDS ORDERED: LACTULOSE 20 GM/30 ML CUP PO ONE (09:14)
[2023-02-14] MEDS: cloNIDine HCL 0.1 MG TAB PO SCH ×2 (09:51→21:33)
[2023-02-14] MEDS: buPROPion XL 300 MG TAB.ER.24H PO SCH ×2 (09:52→10:04)
[2023-02-14] MEDS: GABAPENTIN 300 MG CAP PO SCH ×3 (09:53→21:34)
[2023-02-14] MEDS: SENNOSIDES-DOCUSATE SODIUM 1 EACH TAB PO SCH (09:53)
--- NOTE | 2023-02-14 10:01 | CT ---
EXAMINATION TYPE: CT lumbar spine wo con DATE OF EXAM: 02/14/2023 COMPARISON: 02/12/2023 HISTORY: Urinary retention CT DLP: 690.[address] of the lumbar spine was performed. Bone and soft tissue window settings are submitted as well as coronal and sagittal reconstructions. L1-L2: Normal disc space height. No disc herniation protrusion or central stenosis. No facet joint arthropathy. No evidence for foraminal encroachment. L2-L3: Mild degenerative disc space narrowing. Mild circumferential broad-based disc bulge with mild effacement of ventral thecal sac. No evidence for central stenosis or foraminal encroachment. L3-L4: Decompressive laminectomy with pedicular screws in place. There is extensive streak artifact l imiting evaluation. Postsurgical soft tissue changes are redemonstrated. No definite evidence for rec urrent stenosis. Intervertebral body spacer in place. L4-L5: Decompressive laminectomy with pedicular screws in place. There is extensive streak artifact l imiting evaluation. Postsurgical soft tissue changes are redemonstrated. No definite evidence for rec urrent stenosis. Intervertebral body spacer in place. L5-S1: Decompressive laminectomy with pedicular screws in place. There is extensive streak artifact l imiting evaluation. Postsurgical soft tissue changes are redemonstrated. No definite evidence for rec urrent stenosis. Intervertebral body spacer in place. No paraspinal masses are identified. Lumbar segments are free of fracture. IMPRESSION: 1. Postsurgical changes extending from L3-4 through L5-S1 as discussed above with exam limiting name hardening artifact. No evidence for central stenosis. Postsurgical soft tissue changes seen.
[2023-02-14] MEDS: HYDROcodone/APAP 10-325MG 1 EACH TAB PO PRN (10:47)
[2023-02-14] MEDS: CYCLOBENZAPRINE 5 MG TAB PO PRN (10:48)
[2023-02-14 12:03] LABS: HCT 41.8 % (39.0-53.0); HGB 13.9 gm/dL (13.0-17.5); MCH 30.4 pg (25.0-35.0); MCHC 33.3 g/dL (31.0-37.0); MCV 91.4 fL (80.0-100.0); Mean Platelet Volume 8.9; Platelet Count 183 k/uL (150-450); RBC 4.57 m/uL (4.30-5.90); RDW 12.7 % (11.5-15.5); WBC 10.9 k/uL (3.8-10.6)
[2023-02-14 12:26] LABS: African American GFR (CKD) >90 (>60 ml/min/1.73 sqM); Anion Gap 8 mmol/L; Blood Urea Nitrogen 12 mg/dL (9-20); Carbon Dioxide 27 mmol/L (22-30); Chloride 98 mmol/L (98-107); Glucose 143 mg/dL (74-99); Non-African American GFR(CKD) >90 (>60 ml/min/1.73 sqM); Potassium 4.1 mmol/L (3.5-5.1); Sodium 133 mmol/L (137-145)
[2023-02-14] MEDS: ONDANSETRON 4 MG/2 ML VIAL IVP PRN (12:31)
[2023-02-14] MEDS ORDERED: polyethylene glycoL 3350 17 GM POWD.PACK PO SCH (13:45)
--- NOTE | 2023-02-14 14:05 | P.PN ---
Subjective Progress Note Date: 02/14/23 Patient is a 53-year-old male for history of COPD, GERD, hypertension, dyslipidemia, liver disease, and osteoarthritis who presented for L3 to S1 decompression and fusion. He developed some constipation and then post op ileus Patient seen and examined at bedside. He complains of still not having a bowel movement. He is still having some back pain. He denies chest pain or shortness of breath. We discussed that he is having some urinary retention will need to have a Goins catheter reinserted and his bowel regiment escalated. The afternoon his was present at bedside and asked questions. Informed her that testing showed the patient had an ileus and I recommended decreasing his diet back to clear liquids and continue with an aggressive bowel regimen. We discussed that this can be seen in the postoperative phase and that his required narcotic use to control pain likely is contributing to this. All questions were answered. Vital signs reviewed General: nontoxic, no distress, appears at stated age Cardiovascular: S1S2 reg, no murmur, positive posterior tibial pulse bilateral, Lungs: Decreased bs bilateral, no rhonchi, no rales , no accessory muscle use Abdominal: soft, + distended, no guarding, no appreciable organomegaly Ext: no gross muscle atrophy, no edema b/l lower extremities, no contractures Neuro: CN II-XI grossly intact, no focal neuro deficits Psych: Alert, oriented, appropriate affect Assessment: 53-year-old male status post L3 to S1 decompression and fusion- d/w ortho spine PA and CT L-spine ordered Postoperative ileus -Decrease diet to clear liquids. Continue with aggressive bowel regiment. duloclax, continue with scheduled senna, lactulose 30 g by mouth 1 -Encourage patient to ambulate and increase activity levels -Encouraged patient to use gum Post-op urinary retention - reinsert goins - flomax 0.4 mg dialy. Dizziness, improved - orthostatic negative, suspect related to medications COPD without exacerbation Hypertension -Follow blood pressures -Continue with Catapres 0.05 mg every morning, 0.15 mg by mouth at bedtime, -Continue with when necessary DuoNeb's, patient has not required any Schizophrenia -Continue patient's olanzapine, clonidine, Wellbutrin Chronic: Heart of hearing Fatty liver Obstructive sleep apnea without CPAP use Occasional hand tremor Coronary spasms Dyslipidemia Imaging: Acute abdominal x-ray formal radiology read shows large amount of gas within the colon but nonspecific bowel gas pattern. My interpretation shows air-fluid levels consistent with ileus. Lumbar spine CT: Postsurgical changes extended from L34 through L5-S1 Data Review: Vital signs reviewed temperature 98.1, pulse 91, respirations 18, blood pressure 123/78, O2 sat 94% on room air Labs reviewed White blood cell count 10.9, sodium 133, glucose 143 DVT prophylaxis: per ortho Thank you for allowing us to participate in the care of this pleasant patient. Do not hesitate to contact us with questions. Someone can be reached from the [facility] hospitalist group all hours of the day at [phone] or via [employer]. This dictation was prepared using [employer] voice recognition software. Though every attempt is made to correct errors during dictation some may still exist. Objective - Vital Signs Vital signs: Vital Signs Temp 98.1 F 02/14/23 07:44 Pulse 91 02/14/23 07:44 Resp 18 02/14/23 07:44 BP 123/78 02/14/23 07:44 Pulse Ox 94 L 02/14/23 07:44 FiO2 Intake & Output 02/13/23 02/14/23 02/14/23 18:59 06:59 18:59 Output Total 560 710 200 Balance -560 -710 -200 Output: Drainage 60 110 Back 60 110 Urine 500 600 200 Uretheral (Goins) 600 200 Other: Voiding Method Indwelling Catheter Indwelling Catheter - Labs CBC & Chem 7: 02/14/23 11:23 02/14/23 11:23 Labs: Abnormal Lab Results - Last 24 Hours (Table) 02/14/23 02/14/23 Range/Units 11:23 11:23 WBC 10.9 H (3.8-10.6) k/uL Sodium 133 L (137-145) mmol/L Glucose 143 H (74-99) mg/dL
[2023-02-14] MEDS: LACTATED RINGERS 1,000 ML IV SCH (15:49)
[2023-02-14] MEDS: SODIUM CHLORIDE 0.9% 1,000 ML IV SCH (15:50)
[2023-02-14] MEDS: bisacodyL 5 MG TABLET.DR PO PRN (17:24)
[2023-02-14] MEDS: TAMSULOSIN 0.4 MG CAP.ER.24H PO SCH (17:24)
--- NOTE | 2023-02-14 17:24 | P.PN ---
Subjective Progress Note Date: 02/14/23 Principal diagnosis: Status post revision L3-S1 decompression fusion Patient was evaluated today at bedside, he is resting comfortably. Patient has been dealing with significant constipation, he is also having a very difficult time urinating. Patient was straight cathed yesterday for about 600 mL, a bladder scan today revealed about 300 mL. I discussed this with nursing and internal medicine today, urinary catheter was then inserted. abdominal x-rays were also ordered by internal medicine which did demonstrate likely ileus. Patient did note today on exam he was having a very difficult time feeling urged to urinate, computed tomography scan of lumbar without contrast was also ordered. Pain is currently controlled. He denies any headaches, lightheadedness, chest pain or shortness of breath. Objective - Vital Signs Vital signs: Vital Signs Temp 98.5 F 02/14/23 14:22 Pulse 88 02/14/23 14:22 Resp 18 02/14/23 14:22 BP 140/85 02/14/23 14:22 Pulse Ox 97 02/14/23 14:22 FiO2 Intake & Output 02/13/23 02/14/23 02/14/23 18:59 06:59 18:59 Output Total 560 710 200 Balance -560 -710 -200 Output: Drainage 60 110 Back 60 110 Urine 500 600 200 Uretheral (Farmer) 600 200 Other: Voiding Method Indwelling Catheter Indwelling Catheter - Exam Gen: AOx3, NAD VSS stable at this time Integument: Surgical dressing is in good position and condition, mild serosanguineous drainage noted in the Hemovac Palpation: Mild tenderness with palpation of the midline and paraspinal region of the lower lumbar spine ROM: Full range of motion in all major muscle groups of bilateral upper and lower extremities, no focal deficits appreciated. Slight difficulty with hip flexion, knee extension and knee flexed the bilateral lower extremities due to pain from recent surgery Sensory Exam: Senory exam to light touch is intact C5-T1 Senosry exam to light touch is intact L2-S1, slight dermatomal defect in the right lower extremity from L3-L4 and on the left side L L3-L5 Motor: 5/5 strength in the bilateral upper extremities with shoulder elevation, abduction, elbow extension, elbow flexion, wrist extension, wrist flexion, knitter wire mesh 4/5 strength in the right lower extremity with hip flexion, knee extension, knee flexion, plantar flexion, dorsiflexion, EHL, FHL 4-/5 strength in the left lower extremity with hip flexion, knee extension, knee flexion, plantar flexion, dorsiflexion, EHL, FHL Reflexes: 2/4 in all UE and LE Negative Roya's, Babinski, clonus bilaterally - Labs CBC & Chem 7: 02/14/23 11:23 02/14/23 11:23 Labs: Abnormal Lab Results - Last 24 Hours (Table) 02/14/23 02/14/23 Range/Units 11:23 11:23 WBC 10.9 H (3.8-10.6) k/uL Sodium 133 L (137-145) mmol/L Glucose 143 H (74-99) mg/dL Assessment and Plan Assessment: Postoperative day #3 status post L3-S1 revision decompression fusion Postoperative urinary retention Postoperative ileus Multiple medical comorbidities Plan: I had multiple discussions with internal medicine today regarding the constipation and difficulty with urination. The urinary catheter has been placed, they did start Flomax. Computed tomography scan of the lumbar spine showed no abnormal fluid collection or hardware abnormality Pain control, continue with current medications. I did advise the patient that the narcotics are likely making the constipation worse we will try to cut down on the use of those. Multiple stool softeners are present at this time DVT prophylaxis, we'll start heparin 5000 units every 12 hours during inpatient stay Wound care, continue to monitor surgical dressing, likely remove the drain on 02/15/2023 Continue daily PT/OT Encourage incentive spirometer Medical recommendations appreciated Discharge planning: Anticipate discharge with home healthcare when medically stable Time with Patient: Less than 30
[2023-02-14] MEDS: HEPARIN SODIUM,PORCINE/PF 5,000 UNIT/0.5 ML SYRINGE SQ SCH (21:33)
[2023-02-14] MEDS: OLANZapine 5 MG TAB PO SCH (21:34)
[2023-02-15] MEDS ORDERED: CALCIUM CARBONATE 500 MG CHEWABLE PO PRN (03:56)
[2023-02-15] MEDS: SODIUM CHLORIDE 0.9% 1,000 ML IV SCH ×2 (05:51→17:58)
[2023-02-15] MEDS: ACETAMINOPHEN TAB 325 MG TAB PO SCH ×3 (06:23→17:58)
[2023-02-15] MEDS: SENNOSIDES-DOCUSATE SODIUM 1 EACH TAB PO SCH (08:11)
[2023-02-15] MEDS: buPROPion XL 300 MG TAB.ER.24H PO SCH (08:11)
[2023-02-15] MEDS: HEPARIN SODIUM,PORCINE/PF 5,000 UNIT/0.5 ML SYRINGE SQ SCH ×2 (08:11→20:47)
[2023-02-15] MEDS: GABAPENTIN 300 MG CAP PO SCH ×3 (08:11→20:47)
[2023-02-15] MEDS: bisacodyL 5 MG TABLET.DR PO PRN (08:13)
[2023-02-15 08:44] LABS: HCT 37.8 % (39.0-53.0); HGB 12.7 gm/dL (13.0-17.5); MCH 30.9 pg (25.0-35.0); MCHC 33.5 g/dL (31.0-37.0); MCV 92.3 fL (80.0-100.0); Mean Platelet Volume 8.9; Platelet Count 214 k/uL (150-450); RBC 4.09 m/uL (4.30-5.90); RDW 12.8 % (11.5-15.5); WBC 10.2 k/uL (3.8-10.6)
[2023-02-15 08:47] LABS: African American GFR (CKD) >90 (>60 ml/min/1.73 sqM); Anion Gap 5 mmol/L; Blood Urea Nitrogen 11 mg/dL (9-20); Calcium 8.3 mg/dL (8.4-10.2); Carbon Dioxide 31 mmol/L (22-30); Chloride 99 mmol/L (98-107); Glucose 123 mg/dL (74-99); Non-African American GFR(CKD) >90 (>60 ml/min/1.73 sqM); Potassium 4.2 mmol/L (3.5-5.1); Sodium 135 mmol/L (137-145)
--- NOTE | 2023-02-15 11:21 | P.PN ---
Subjective Progress Note Date: 02/15/23 Subjective: Patient seen and examined at bedside. Continues to have abdominal pain, and bloating, passing flatus, no bowel movements, continues to have drain and Goins catheter in place. Had 1 bout of emesis overnight. Now tolerating liquids. Pertinent positives and negatives as discussed above, a complete review of systems was performed and all other systems are negative. Vitals Signs Reviewed. General: nontoxic, no distress, appears at stated age Cardiovascular: S1S2 reg, no murmur, positive posterior tibial pulse bilateral, Lungs: Decreased bs bilateral, no rhonchi, no rales , no accessory muscle use Abdominal: soft, + distended, diffusely tender to palpation, no guarding, no appreciable organomegaly Ext: no gross muscle atrophy, no edema b/l lower extremities, no contractures Neuro: CN II-XI grossly intact, no focal neuro deficits Psych: Alert, oriented, appropriate affect Data Reviewed Today: Pertinent Labs: WBC 10.2, hemoglobin 12.7, sodium 135, creatinine 0.89 Imaging: No new imaging Assessment and Plan: Postoperative ileus Postoperative urinary retention Dizziness, resolved COPD without exacerbation Hypertension Schizophrenia Hard of hearing Hepatic steatosis OBDULIA with CPAP Head tremor Coronary vasospasms Dyslipidemia -Passing flatus, no bowel movements as of yet -Encourage ambulation, increase to a little -Able tolerate clear liquids -Repeat KUB -Limit narcotics -flomax 0.4mg daily, keep goins for now -On subcu heparin DVT prophylaxis -Rest of the home meds reconciled Thank you for allowing us to participate in the care of this pleasant patient. Do not hesitate to contact us with questions. Someone can be reached from the [facility] hospitalist group all hours of the day at [phone] or via [employer]. Objective - Vital Signs Vital signs: Vital Signs Temp 98.4 F 02/15/23 07:19 Pulse 100 02/15/23 07:19 Resp 15 02/15/23 07:19 BP 113/62 02/15/23 07:19 Pulse Ox 94 L 02/15/23 07:19 FiO2 Intake & Output 02/14/23 02/15/23 02/15/23 18:59 06:59 18:59 Intake Total 975 Output Total 625 330 Balance -625 645 Intake: Intake, IV Titration 975 Amount Sodium Chloride 0.9% 1, 975 000 ml @ 75 mls/hr IV . [id number] [facility] Rx#:[id number] Output: Drainage 30 Back 30 Urine 625 300 Uretheral (Goins) 200 Other: Voiding Method Indwelling Catheter - Labs CBC & Chem 7: 02/15/23 07:56 02/15/23 07:56 Labs: Abnormal Lab Results - Last 24 Hours (Table) 02/14/23 02/14/23 02/15/23 Range/Units 11:23 11:23 07:56 WBC 10.9 H (3.8-10.6) k/uL RBC 4.09 L (4.30-5.90) m/uL Hgb 12.7 L (13.0-17.5) gm/dL Hct 37.8 L (39.0-53.0) % Sodium 133 L (137-145) mmol/L Carbon Dioxide (22-30) mmol/L Glucose 143 H (74-99) mg/dL Calcium (8.4-10.2) mg/dL 02/15/23 Range/Units 07:56 WBC (3.8-10.6) k/uL RBC (4.30-5.90) m/uL Hgb (13.0-17.5) gm/dL Hct (39.0-53.0) % Sodium 135 L (137-145) mmol/L Carbon Dioxide 31 H (22-30) mmol/L Glucose 123 H (74-99) mg/dL Calcium 8.3 L (8.4-10.2) mg/dL
--- NOTE | 2023-02-15 12:07 | P.PN ---
Subjective Progress Note Date: 02/15/23 Principal diagnosis: Status post revision L3-S1 decompression fusion Patient was evaluated today at bedside, he is resting in his hospital bed. Patient has continued to pass gas but is yet to have a bowel movement. Urinary catheter remains in place. I was able to visualize the patient get up to the side of the bed with the help of a walker to use the bedside commode. Seems to be moving better. Patient states that the pain in his back is noticeable, the medication seem to be controlling it. He denies any headaches, lightheadedness, chest pain or shortness of breath. Objective - Vital Signs Vital signs: Vital Signs Temp 98.4 F 02/15/23 07:19 Pulse 100 02/15/23 07:19 Resp 15 02/15/23 07:19 BP 113/62 02/15/23 07:19 Pulse Ox 94 L 02/15/23 07:19 FiO2 Intake & Output 02/14/23 02/15/23 02/15/23 18:59 06:59 18:59 Intake Total 975 Output Total 625 330 Balance -625 645 Intake: Intake, IV Titration 975 Amount Sodium Chloride 0.9% 1, 975 000 ml @ 75 mls/hr IV . [id number] [facility] Rx#:[id number] Output: Drainage 30 Back 30 Urine 625 300 Uretheral (Farmer) 200 Other: Voiding Method Indwelling Catheter - Exam Gen: AOx3, NAD VSS stable at this time Integument: Surgical dressing is in good position and condition, Hemovac drain was removed today at bedside, a small bandage was placed over the drain hole Palpation: Mild tenderness with palpation of the midline and paraspinal region of the lower lumbar spine ROM: Full range of motion in all major muscle groups of bilateral upper and lower extremities, no focal deficits appreciated. Slight difficulty with hip flexion, knee extension and knee flexed the bilateral lower extremities due to pain from recent surgery Sensory Exam: Senory exam to light touch is intact C5-T1 Senosry exam to light touch is intact L2-S1, slight dermatomal defect in the right lower extremity from L3-L4 and on the left side L L3-L5 Motor: 5/5 strength in the bilateral upper extremities with shoulder elevation, abduction, elbow extension, elbow flexion, wrist extension, wrist flexion, diamond merchant 4/5 strength in the right lower extremity with hip flexion, knee extension, knee flexion, plantar flexion, dorsiflexion, EHL, FHL 4-/5 strength in the left lower extremity with hip flexion, knee extension, knee flexion, plantar flexion, dorsiflexion, EHL, FHL Reflexes: 2/4 in all UE and LE Negative Roya's, Babinski, clonus bilaterally - Labs CBC & Chem 7: 02/15/23 07:56 07 07:56 Labs: Abnormal Lab Results - Last 24 Hours (Table) 02/14/23 02/15/23 02/15/23 Range/Units 11:23 07:56 07:56 RBC 4.09 L (4.30-5.90) m/uL Hgb 12.7 L (13.0-17.5) gm/dL Hct 37.8 L (39.0-53.0) % Sodium 133 L 135 L (137-145) mmol/L Carbon Dioxide 31 H (22-30) mmol/L Glucose 143 H 123 H (74-99) mg/dL Calcium 8.3 L (8.4-10.2) mg/dL Assessment and Plan Assessment: Postoperative day #4 status post L3-S1 revision decompression fusion Postoperative urinary retention Postoperative ileus Multiple medical comorbidities Plan: Pain control, continue with current medications. I did advise the patient that the narcotics are likely making the constipation worse we will try to cut down on the use of those. Multiple stool softeners are present at this time DVT prophylaxis, continue heparin 5000 units every 12 hours during inpatient stay Wound care, continue to monitor. We'll change bandage prior to discharge. Okay to shower at this time directly over bandage Continue daily PT/OT Encourage incentive spirometer Medical recommendations appreciated Discussed with patient that we likely will have him leave urinary catheter in place and plan for follow-up with urology, we'll discuss his internal medicine to determine if urology should evaluate patient during hospital stay Discharge planning: Anticipate discharge with home healthcare when medically stable Time with Patient: Less than 30
[2023-02-15] MEDS: HYDROcodone/APAP 10-325MG 1 EACH TAB PO PRN ×2 (12:09→17:23)
[2023-02-15] MEDS: LACTATED RINGERS 1,000 ML IV SCH (13:36)
[2023-02-15] MEDS: TAMSULOSIN 0.4 MG CAP.ER.24H PO SCH (17:20)
--- NOTE | 2023-02-15 17:49 | XR ---
EXAMINATION TYPE: XR KUB portable DATE OF EXAM: 02/15/2023 COMPARISON: 02/13/2023 INDICATION: Abdominal pain and bloating TECHNIQUE: Single view abdomen FINDINGS: There is prominent colonic bowel gas present. Air-fluid levels within the ascending colon region. Non specific small bowel gas is present. Findings may be related to ileus. Follow-up is recommended. Psoas margins are not well visualized. No organomegaly is present. Postsurgical changes are present within the midline. There are pedicle screws and fixation rods prese nt. IMPRESSION: 1. Prominent air-filled colon with multiple loops of small bowel with air. Correlate for ileus. Follo w-up is recommended
[2023-02-15] MEDS: cloNIDine HCL 0.1 MG TAB PO SCH (20:47)
[2023-02-15] MEDS: OLANZapine 5 MG TAB PO SCH (20:47)
[2023-02-16] MEDS: HYDROcodone/APAP 10-325MG 1 EACH TAB PO PRN (01:27)
[2023-02-16] MEDS: ACETAMINOPHEN TAB 325 MG TAB PO SCH ×3 (01:28→12:20)
[2023-02-16] MEDS: SODIUM CHLORIDE 0.9% 1,000 ML IV SCH (06:41)
[2023-02-16] MEDS: buPROPion XL 300 MG TAB.ER.24H PO SCH (07:48)
[2023-02-16] MEDS: bisacodyL 5 MG TABLET.DR PO PRN (07:48)
[2023-02-16] MEDS: HEPARIN SODIUM,PORCINE/PF 5,000 UNIT/0.5 ML SYRINGE SQ SCH (07:48)
[2023-02-16] MEDS: SENNOSIDES-DOCUSATE SODIUM 1 EACH TAB PO SCH (07:48)
[2023-02-16] MEDS: GABAPENTIN 300 MG CAP PO SCH ×2 (07:48→16:05)
[2023-02-16] MEDS: HYDROcodone/APAP 7.5-325MG 1 EACH TAB PO PRN ×2 (08:20→16:05)
--- NOTE | 2023-02-16 08:28 | P.PN ---
Subjective Progress Note Date: 02/16/23 Principal diagnosis: 1. 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 Neurogenic claudication 3. Lower extremity weakness Patient seen and examined this morning. Patient is resting comfortably in bed. Patient reports his pain is controlled on current regimen. He has request for a decrease in pain medication due to falling asleep unknowingly throughout the day, medication adjusted. Surgical dressing is clean dry and intact. Patient requesting to shower later today, new dressing will be applied at that time. Goins catheter remains due to post-op urinary retention, patient to follow up with urology after discharge. Patient does report a small bowel movement yesterday afternoon, he states he feels some relief in his abdomen. Patient has been ambulatory with an room with walker. Patient is cleared from orthopedic standpoint for discharge when medically stable. Objective - Vital Signs Vital signs: Vital Signs Temp 97.9 F 02/16/23 07:25 Pulse 77 02/16/23 07:25 Resp 16 02/16/23 07:25 BP 108/68 02/16/23 07:25 Pulse Ox 97 02/16/23 07:25 FiO2 Intake & Output 02/15/23 02/16/23 02/16/23 18:59 06:59 18:59 Intake Total 975 Output Total 700 1200 Balance -700 -225 Intake: Intake, IV Titration 975 Amount Sodium Chloride 0.9% 1, 975 000 ml @ 75 mls/hr IV . [id number] [facility] Rx#:[id number] Output: Urine 700 1200 Other: Voiding Method Indwelling Catheter # Voids 1 # Bowel Movements 1 - Exam Physical Examination General: The patient is awake and alert, in no acute distress Skin: Skin is warm and dry with no obvious rashes or lesions. Surgical incision to the lumbar spine, dressing is clean dry and intact. Eye: Pupils are equal, round and reactive to light, extra-ocular movements are intact; there is normal conjunctiva bilaterally. Neck: The neck is supple, there is no tenderness and ROM intact. Cardiovascular: There is a regular rate and rhythm. No murmur, rub or gallop is appreciated. Respiratory: Lungs are clear to auscultation, respirations are non-labored, breath sounds are equal. Gastrointestinal: Soft, non-distended, non-tender abdomen. Back: There is no tenderness to palpation in the midline, paralumbar, para thoracic or buttocks region. There is no obvious deformity . Musculoskeletal: ROM limited secondary to pain and stiffness from surgical procedure. Muscle strength in all major muscle groups of bilateral upper extremities 5/5, bilateral lower extremities 4/5. Neurological: CN 2-12 intact. There are no obvious motor or sensory deficits. Movement and coordination equal and intact. Sensory exam to light touch intact C5-T1 and intact from L2-S1. Reflexes 2/4 in bilateral upper and lower extremities. Negative Hoffmans, babinski, and clonus signs. Psychiatric: Cooperative, appropriate mood & affect, normal judgment. - Labs CBC & Chem 7: 02/15/23 07:56 02/15/23 07:56 Labs: Abnormal Lab Results - Last 24 Hours (Table) 02/15/23 02/15/23 Range/Units 07:56 07:56 RBC 4.09 L (4.30-5.90) m/uL Hgb 12.7 L (13.0-17.5) gm/dL Hct 37.8 L (39.0-53.0) % Sodium 135 L (137-145) mmol/L Carbon Dioxide 31 H (22-30) mmol/L Glucose 123 H (74-99) mg/dL Calcium 8.3 L (8.4-10.2) mg/dL Assessment and Plan Assessment: Postop day 5: Revision L3-S1 decompression and fusion 1. 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 Neurogenic claudication 3. Lower extremity weakness Plan: -Appreciate automotive consultant and team management. -Activity: Ambulate QID, OOB all meals, up and about, limit lifting bending twisting to less than 5 lbs. Use walker or cane if needed for stability. -Daily PT/OT, increase ambulation strength and balance. -Brace when up and about, not needed in bed or chair -Pain control: Adequate at this time -Meds: reviewed -GI ppx: senna, Miralax, dulcolax -Maintain goins, patient to follow up with urology outpatient. -DVT PPX: Heparin -Hygiene: Shower today. Maintain dressing clean and dry. Meticulous cleaning after BMs away from the incision site -Drains: Maintain for now. DC later today pending out put and PT -Encourage IS 10x/hr -Dispo: Anticipate discharge home with homecare later today vs tomorrow *I reviewed and discussed this case with my attending Dr. Estrada, whom has reviewed this chart and films and is in agreement with assessment and plan of care as outlined above. I have personally seen and examined the patient, performed the documentation and the assessment and plan as written. Number of minutes spent on the visit: 20m.
[2023-02-16] MEDS: LACTATED RINGERS 1,000 ML IV SCH (12:19)
--- NOTE | 2023-02-16 13:05 | P.PN ---
Subjective Progress Note Date: 02/16/23 Subjective: Patient seen and examined at bedside. No acute events overnight. Had BM. No voiding. Pertinent positives and negatives as discussed above, a complete review of systems was performed and all other systems are negative. Vitals Signs Reviewed. General: nontoxic, no distress, appears at stated age Cardiovascular: S1S2 reg, no murmur, positive posterior tibial pulse bilateral, Lungs: Decreased bs bilateral, no rhonchi, no rales , no accessory muscle use Abdominal: soft, non-tender, no guarding, no appreciable organomegaly Ext: no gross muscle atrophy, no edema b/l lower extremities, no contractures Neuro: CN II-XI grossly intact, no focal neuro deficits Psych: Alert, oriented, appropriate affect Data Reviewed Today: Pertinent Labs: No new labs today Imaging: No new imaging Assessment and Plan: Postoperative ileus, resolving Postoperative urinary retention, resolving Dizziness, resolved COPD without exacerbation Hypertension Schizophrenia Hard of hearing Hepatic steatosis OBDULIA with CPAP Head tremor Coronary vasospasms Dyslipidemia -having BM and voiding, tolerating oral intake -Encourage ambulation -Able tolerate clear liquids -Limit narcotics -flomax 0.4mg daily -On subcu heparin DVT prophylaxis -patient is medically optimized for dc home. Thank you for allowing us to participate in the care of this pleasant patient. Do not hesitate to contact us with questions. Someone can be reached from the [facility] hospitalist group all hours of the day at [phone] or via perfect serve. Objective - Vital Signs Vital signs: Vital Signs Temp 97.9 F 02/16/23 07:25 Pulse 77 02/16/23 07:25 Resp 16 02/16/23 07:25 BP 108/68 02/16/23 07:25 Pulse Ox 97 02/16/23 07:25 FiO2 Intake & Output 02/15/23 02/16/23 02/16/23 18:59 06:59 18:59 Intake Total 975 Output Total 700 1200 150 Balance -700 -225 -150 Intake: Intake, IV Titration 975 Amount Sodium Chloride 0.9% 1, 975 000 ml @ 75 mls/hr IV . [id number] [facility] Rx#:[id number] Output: Urine 700 1200 150 Other: Voiding Method Indwelling Catheter # Voids 1 # Bowel Movements 1 - Labs CBC & Chem 7: 02/15/23 07:56 02/15/23 07:56
[2023-02-16 13:58] VITALS: BP 117/60; PULSE 64; RESP 15; TEMP 97.4
--- NOTE | 2023-02-17 13:48 | P.OP ---
Date of Procedure: 02/11/23 Preoperative Diagnosis: 1. 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 LOW BACK PAIN 4. NEUROGENIC CLAUDICATION 5. LE WEAKNESS WITH PARESTHESIAS Postoperative Diagnosis: 1. 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 LOW BACK PAIN 4. NEUROGENIC CLAUDICATION 5. LE WEAKNESS WITH PARESTHESIAS Procedure(s) Performed: 1. L3-4 POSTERIOLATERAL AND INTERBODY FUSION () 2. REVISION POSTERIOLATERAL FUSION L4-S1 (, )/59 3. INSTRUMENTATION L3-S1 (21728) 4. DECOMPRESSIVE LAMINECTOMY BILATERAL WITH FACETECTOMY AND FORAMINOTOMY L3-5 (40934, 01484) 5. INSERTION OF BIOMECHANICAL DEVICE L3-4 () 6. EXPLORATION OF FUSION L4-S1 () 7. REMOVAL OF SEGMENTAL HARDWARE L4-S1 () 8. USE OF zanda CARLOS FOR SCREW PLACEMENT (71558) USE OF IONM ALL SCREWS TESTING >15 MA Implants: -GLOBUS CREO SCREW AND DUSTY SYSTEM -LIFE SPINE PROLIFT CAGEX1 -MAGNATOS, IFACTOR, ALLOCEL, ARTHROCEL, AUTOGRAFT Anesthesia: GETA Surgeon: Korey Estrada Melter Supervisor Electric [employer] Furnace #1: Rajan Escoto (WAS PRESENT AND ASSISTED WITH ALL ASPECTS OF THE CASE FROM POSITIONING TO CLOSURE) Estimated Blood Loss (ml): 350 IV fluids (ml): 2,000 Urine output (ml): 450 Pathology: none sent Condition: stable Disposition: PACU Indications for Procedure: Mr. Newell is presenting for evaluation of low back and bilateral lower extremity pain. It was my pleasure to have seen and examined Mr. Newell. In our visit today we have had a chance to go over subjective complaints, physical examination findings and treatments including the natural course history without intervention and various interventional options. 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 The spondylosis with moderate to severe stenosis in this area due to the ligamental hypertrophied facet hypertrophy and facet overgrowth as well as adjacent segment overgrowth. There is postsurgical changes from L3 through S1 which appears stable at this time. There is no fractures or dislocations otherwise noted. The remainder of the exam is stable XRay Lumbar AP/lateral 2 views with AP pelvis; 3 views taken at [facility] on 11/24/22: - re-reviewed with the patient in office today: Mild multilevel spondylitic changes with preserved alignment. Hardware noted L4- S1 from previous surgery, hardware is intact with no migration. Multilevel diminished disc height. No acute osseous abnormalities. On physical exam, Mr. Newell demonstrates: an aching lumbar pain that has been ongoing for many years and has been progressing since his previous surgery of an L4-S1 decompression and fusion performed by Dr. Joseph in [id number]. The patient states that he experiences an intermittent sharp shooting pain throughout the low back, though the dull ache is constant. In addition to theirlumbar pain, they do report that it radiates down into the bilateral lower extremities, associated with numbness and tingling. The patient states that his right lower extremity pain has increased since he was last evaluated in office. Overall, the patient has seen a progressive increase in their symptoms since their onset. I have explained to the patient that as their condition progresses it will cause further neurological deficits and eventual paralysis. Based on the patients imaging, physical exam, and the rapid progression and disabling nature of their symptoms, at this time I recommend surgery in the form of a: revision L3-S1 decompression and fusion. I discussed the risk and benefits of this procedure at length with Mr. Newell. The patient agreed to considered pursuing the procedure abovementioned. Prior to surgery, she should follow up with her PCP (Cardio, ID, IM etc) for clearance. Questions were invited and answered, and the patient wishes to proceed as outlined below. Currently, I am recommendin.Revision L3-S1 decompression and fusion Description of Procedure: L3-S1 open Decompression and fusion (carlos) Revision with AURE The patient was seen and examined in the preoperative area.All preoperative protocols were followed.Informed consent was obtained, risks and benefits of the procedure were discussed at length.Risks including bleeding infection damage to the surrounding tissue and risk of re-operation were discussed with the patient.Risk of anesthesia up to and including was discussed with the patient.These are outlined in the risk review.They were willing to accept these risks and all the risks of surgery.The patient was given a weight-based dose of antibiotics in the form of 2 g Ancef.The patient was seen and evaluated by the anesthesia team who deemed them fit for surgery. The site was marked, the patient was willing to proceed with the procedure. The patient was transferred to the operative suite by the Department of anesthesia. They were then drifted off to sleep by the department anesthesia and GETA was performed. The patient tolerated this well. Farmer catheter was placed by nursing staff, a-traumatically. Once confirmation of lines and ventilation the patient was transferred to a prone Chris table very carefully. All bony prominences including wrists, elbows, axilla, chest, hips, and thighs, and feet were padded very well. Special attention was paid to the genitalia, and these were padded accordingly. SCDs were placed on bilateral lower extremities and were connected. Arms were well padded and placed on arm boards up and out in the 90/90 position. Once in position, again we confirmed good ventilation capabilities and that lines were running appropriately. The patients Lumbar spine was then exposed. 1010s were placed outlining the incision site. Standard alcohol was used to clean the incision site and allowed to dry. C-arm was used to needle localize the pedicles at L4-S1 and bio-umberto the patient and confirm level for incision which was marked with a skin marker. Operative briefing was performed with all teams and everyone in agreement to proceed. The patient was then prepped and draped in a normal sterile fashion. Timeout was then performed, and all parties agreed with the procedure to be performed. Midline skin incision was made over the previously bio-marked area and dissection taken down over the SP of L3-S1. L3-S1 was taken out over facet joints and TPs and a penfield 4 used to umberto the L4 pedicle. Lateral image used to confirm levels. Old hardware was identified and set screws and rods removed. Fusion was explored. Screws were tested and the b/l L4 screws were loose. All previous hardware was then removed posteriorly. Once this was accomplished, screws were proceeded to be placed b/l at pedicles from L3-S1 using [employer] Navigation. An SP clamp was used, 3D C arm spin obtained and confirmed to be accurate. Once this was confirmed screws were placed using a navigated chata, navigated awl-tap and navigated hazmat tanker driver. Once screws were placed they were confirmed to be in good position using AP and Lateral fluoroscopy. The wound was then irrigated. Screws were tested and all tested above 15 mA. We then proceeded to decompression and cage placement. TP were then decorticated with high speed chata for fusion later. Attention was then turned to inter-body fusion at L3-4 since there was already a cage at L4-5. Bilateral laminectomy, complete facetectomy and foraminotomy performed at L3-5 using high speed chata and Kerrison rongure. The ligamentum was removed and dural sac decompressed. Exiting and traversing roots visualized and decompressed. Neural elements were then protected, and disc space accessed with an osteotome. Sequential shaving then done under lateral imaging and complete discectomy performed using nannette, pituitary and curette. Once good bleeding endplates accomplished and good height rastafari with trials, a combination of autograft, allograft and synthetic placed anterior in the disc space. The cage was then selected and impacted into place under lateral imaging. The cage was then expanded restoring height, lordosis and alignment. The cage was backfilled with bone graft through a funnel. The rotary helper removed and area inspected. Good cage placement, stable cage and no injuries. Area was irrigated copiously, and meticulous hemostasis achieved. The wound and disc spaces irrigated and meticulous hemostasis achieved. Laminectomy was completed at L4-5 as well using high speed chata and kerrison rongure for complete decompression from L3-S1 Rods were then sized and selected and placed into S1 screws b/l. Set screws locked these in place and then sequentially reduced into L4 and L5 b/l for reduction of listhesis. This was accomplished. Set screws were then all placed and final tightened. A cross link was selected and placed and final tightened. TPs were then decorticated with high speed chata. The wound was the irrigated with 3L ancef irrigation, 3L gentamicin irrigation and 6L NSS. Surgical was placed over the dura. Autograft and MagnatOs then placed in the posteriolateral gutters and impacted into place for fusion. Deep drain placed and secured to the skin. Final images confirmed good placement of hardware and good reduction of listhesis as well as rastafari of height and lordosis. Facia was then closed with #1 PDS. Deep subq closed with 0 Vicryl. Superficial subq closed with 2-0 Vicryl and skin with berlin. Wound edges approximated very well. Wound was then cleaned with alcohol and dried. Wounds dressed with Optifoam dressings. The patient was then transferred off the table back to their hospital bed a- traumatically.Drains continued to hold suction.They were extubated by the department of anesthesia.They were then transferred to PACU in stable condition having tolerated the procedure with no complications.
--- NOTE | 2023-02-17 14:47 | P.DS ---
Providers Date of admission: 02/11/23 09:56 Expected date of discharge: 02/16/23 Attending physician: Korey Estrada DO Consults: 02/11/23 16:28 Consult Physician Routine Consulting Provider: Myra Haq Consult Reason/Comments: medical management s/p revision L3-S1 decompr fusion Do you want consulting provider notified?: Yes Primary care physician: Lang Muro Hospital Course: Date of admission: 02/11/2023 Date of discharge: 02/16/2023 Admission diagnosis: Status post revision L3-S1 decompression fusion Discharge diagnosis: Same Attending physician: Dr. Estrada Surgical procedures: L3-S1 revision decompression fusion Brief history: Patient is a 53-year-old male with a history of adjacent segment disease L3-L4, neurogenic claudication and lower extremity weakness. At this point patient has failed conservative treatment measures and has opted to proceed with a elective revision L3-S1 decompression fusion. Hospital course: Details of patient's surgery can be found in operative report. Patient tolerated the procedure well and was subsequently transported to orthopedic floor. Patient's orthopeidc and medical care was provided daily. Patient had daily laboratory tests performed for evaluation of overall blood counts. Patient had daily physical therapy to include strengthening range of motion as well as education with walker ambulation. Patient was treated with Lovenox for their postoperative DVT prophylaxis during their inpatient stay. Patient did develop postoperative ileus along with urinary retention, these were monitored during the hospital stay. Both did resolve prior to discharge. Patient reported satisfactory pain control with oral pain medications by postoperative day 5. Patient showed satisfactory progress with physical t herapy. Patient moved steadily through the program and had no difficulty meeting the goals by postoperative day 5. Given patient's otherwise satisfactory course and having met physical therapy goals, plan is to discharge patient home on postoperative day 5. Discharge condition/disposition: Patient will be discharged home in stable condition. Discharge medications: Instructions are given on resumption of patient's normal daily medications per primary care recommendation, in addition patient will be prescribed Victoria 7.5 mg/325 mg, Flomax 0.4 mg, senna S, MiraLAX 17 g, Duricef 500mg. Spine Discharge and Recovery Instructions Dressing: Leave your dressing in place for a total of 5 days post operatively. Then you may remove your dressing and leave open to air. Keep the area clean and if not able to keep area clean, then cover with sterile gauze and tape. Showering: You may shower 3 days after your procedure allowing soap and water to run over incision. Do not scrub. Do not soak. Blot dry. Follow up: Please confirm a follow up appointment with your surgeon 3 weeks post operatively. Please make an appointment to follow up with your PCP in 1-2 weeks after hillary rosie for evaluation 3 phase, 3-week plan POST OP WEEKS 1-3 1. Lifting/carrying/pushing/pulling limited to less than 5 pounds. 2. Do not sit for longer than 15 minutes at one time. Get up and walk around. Prolonged sitting is NOT advised. If you lay down, see if you can tolerate laying down on you front (belly side) 3. Walk for periods of 15 minutes = 1 mile but no longer; do it multiple times times each day. 4. Ice your low back after activity. POST OP WEEKS 3-6 1. Lifting limited to less than 20 pounds. 2. Do not sit for longer than 30 minutes at a time. Frequently change positions. Use a sit-to stand workstation or take frequent breaks from sitting if you have returned to work. 3. Walk for 30 minutes each day. If possible, do these three or more times a day POST OP WEEKS 6+ At your 6-week appointment we will give you a physical therapy referral to focus on a core stabilization and strengthening program. You should also work on leg & buttock strengthening, hamstring & quadriceps stretching, and continue a low impact aerobic activity program such as swimming, walking, or riding a stationary bicycle. During the initial 6 weeks after your surgery, you are at the highest risk of re-injuring your spine. You should generally avoid BLTs (bending, lifting and twisting combination motions) and follow the above guidelines to reduce the chance of reinjury. You can anticipate post op appointments in our office at approximately 3 weeks and 6 weeks after your surgery. INCISION CARE: If your incision is not draining you do NOT need to cover it with a dressing. Keep your incision clean, dry and intact. In most cases, we apply skin glue, berlin or sutures to the incision at the time of surgery. This will be like a crust or have the appearance of a scab and will fall off in time on its own. The stitches or berlin need to be removed at 3 weeks post op appointment. You may begin to shower 3 days after surgery (this allows the glue to arteaga well). However, please avoid scrubbing the incision site or peeling off any of the skin glue. This will ensure optimal healing of your incision. Also, during this time avoid soaking the incision area in water - this includes swimming pools, hot tubs or baths. No ointments, lotions or oils on the incision until your surgeon allows. Leave berlin, sutures or glue in place. Neurological dysfunction that comes on suddenly can also be a sign of a stroke. Below some common symptoms of a stroke are listed: B - balance difficulty such as sudden onset walking or leaning to one side - NEW E - eye problem such as sudden double vision or trouble seeing on one side - NEW F - Facial weakness or numbness on one side - NEW A - Arm or leg weakness or numbness on one side - NEW S - Slurred speech or difficulty with word finding - NEW T - Time is BRAIN! Call 911 as soon as you recognize these symptoms Diet: Consume a regular diet rich in vegetables and lean protein such as chicken or fish. You should consume in a ratio of approximately 20% fats|40% carbohydrates|40%protein. Vegetables, sweet potatoes, brown rice or quinoa are examples of good carbohydrates. Chips, white bread, cookies and sweets/sugar are examples of bad carbohydrates. Limit your bad carbs, go wild with good carbs. "Life's Simple 7" Guidelines as per [place] [employer] These will help you reclaim your life after surgery and help desk analyst in your recovery, keeping in mind your restrictions. (1) Get Active. Physical activity can help people lose weight, control high blood pressure and cholesterol, feel emotionally better, and sleep better. (2) Control Cholesterol. Avoid a diet high in saturated fat, trans fat, & cholesterol. Limit whole milk & cream, ice cream, butter, egg yolks, processed meats (like sausage and hot dogs), and fatty meats. Choose healthy foods that are low in saturated fat, trans fat and cholesterol which include: Fruits and vegetables, fiber rich grain products (like whole grain pasta and brown rice), lean meat such as chicken, fish, nuts, seeds, and legumes. (3) Eat Better. Eat small portions. Shop at the grocery with a list and do not stray from it. Tips for a healthy diet include: Limit sodium intake to less than 1500mg daily, avoid prepackaged, processed, and fast foods, choose a diet rich in fruits, vegetables, and whole grain, high fiber foods, and limit saturated & cholesterol in your diet. (4) Manage Blood Pressure. If you have high blood pressure, you should have a cuff at home so that you can check your blood pressure regularly. Be sure you have a good cuff. An arm one is generally better than a wrist one. Bring the cuff to a doctor's appointment to validate that the measurements that your cuff are taking are accurate. Take your blood pressure twice daily when you are sitting down and relaxing. Record the numbers in a log and bring this log with you to your doctors' appointments. (5) Lose Weight if your BMI is above 25. A healthy BMI is between 19-25. To calculate Your BMI, you may use a Standard BMI Calculator on the NIH BMI website: <www.nhlbi.nih.gov/guidelines/obesity/BMI/bmicalc.htm>. Weigh oneself daily. If you are overweight, set a goal to lose weight. A pound a week loss if needed is a good target. (6) Reduce Blood Sugar. Limit foods and liquids with "added sugars." (Added sugars include sucrose, fructose, glucose, maltose, dextrose, high fructose corn syrup, corn syrup, concentrated fruit juice and honey). (7) Stop Smoking. If you smoke, quitting smoking is one of the best things that you can do for your health. Smoking increases your risk of heart attack, stroke, and peripheral vascular disease, which is a build-up of plaque in your arteries. Please discard all the cigarettes and lighters in your house. Have a plan for what you will do when you have the urge to smoke. Direct and second- hand smoke shortens your life as well as the lives of your family, friends and others around you. For your health and the health of those around you, please consider quitting! Proper Bending Body Mechanics: Maintain a wide stance with one foot slightly in front of the other. Keep your back straight. Bend utilizing the strength in your hips and knees. Do not bend at the waist. Maintain the lifted object at your waist-level close to your body. Avoid lifting weight that causes immediately pain or pain anywhere in the body afterwards. Smoking/Nicotine If there was ever one thing that you could do to increase your overall health, decrease your risk of cardiovascular problems by about 39% the second you make the choice, it is to STOP SMOKING. Your body's most instant gratification is the second you stop smoking. We have all heard the studies, read the articles but it is true, smoking is extremely bad for your overall health, and moreover it is detrimental to your bone health. Nicotine, IN ANY FORM, kills bone cells, prevents your body from healing fractures, and significantly prolongs healing after surgery. In spine surgery specifically, it increases your risk of not healing your bones to create a fusion and increases your risk of having a revision surgery due to this up to 60%. I know it is hard. I know it feels impossible. But there are ways. Take control of your life. We are here to help you through it. And when you are ready, ask us and we can direct you to help if you desire. Use the START Plan to Quit Smoking (please visit the [employer] website listed below for more information): S = Set a quit date. Choose a date within the next 2 weeks, so you have enough time to prepare without losing your motivation to quit. If you mainly smoke at work, quit on the weekend, so you have a few days to adjust to the change. T = Tell family, friends, and co-workers that you plan to quit. Let your friends and family in on your plan to quit smoking and tell them you need their support and encouragement to stop. Look for a quit mary who wants to stop smoking as well. You can help each other get through the rough times. A = Anticipate and plan for the challenges you'll face while quitting. Most people who begin smoking again do so within the first 3 months. You can help yourself make it through by preparing ahead for common challenges, such as nicotine withdrawal and cigarette cravings. R = Remove cigarettes and other tobacco products from your home, car, and work. Throw away all your cigarettes (no emergency pack!), lighters, ashtrays, and matches. Wash your clothes and freshen up anything that smells like smoke. Shampoo your car, clean your drapes and carpet, and steam your furniture. T = Talk to your doctor about getting help to quit. Your doctor can prescribe medication to help with withdrawal and suggest other alternatives. If you can't see a doctor, you can get many products over the counter at your local pharmacy or grocery store, including the nicotine patch, nicotine lozenges, and nicotine gum. Resources for Quitting Smoking: <https://www.[place].gov/documents/[facility]/Quit_Tobacco_Resources_for_patients_313 480_7.pdf> Supplementation: Take recommended dosages of Vitamin D and Calcium to help fortify your bones and help them to heal. See your health maintenance packet for dosages and recommended levels. DVT/VTE prophylaxis: You will be given compression stockings from the hospital. Wear these daily for the first two weeks after surgery. You may take them off at night. You may be prescribed a medication to help thin your blood. Take this as directed. If you are not prescribed this medication, early and frequent ambulation has been shown to be the best prophylaxis to deep vein thrombosis and sequelae related to this event. Procedures: L3-S1 revision decompression and fusion Patient Condition at Discharge: Good Plan - Discharge Summary Discharge Rx Participant: Yes New Discharge Prescriptions: New cefaDROXiL [Duricef] 500 mg PO Q12HR 5 Days #10 cap HYDROcodone/APAP 7.5-325MG [Victoria 7.5] 1 each PO Q6HR PRN #28 tab PRN Reason: Pain Sennosides/Docusate Sodium [Senna-S 8.6-50 mg Tablet] 2 each PO DAILY PRN #30 tablet PRN Reason: Constipation Tamsulosin [Flomax] 0.4 mg PO PC-SUPPER #60 cap polyethylene glycoL 3350 [Miralax] 17 gm PO DAILY PRN #21 packet PRN Reason: Constipation Continue buPROPion HCL [buPROPion HCL XL] 300 mg PO QAM cloNIDine HCL 0.15 mg PO HS OLANZapine 5 mg PO HS Nitroglycerin 0.4 mg PO DIRECTED PRN PRN Reason: Chest Pain cloNIDine HCL 0.05 mg PO QAM Multivitamin [Multivitamins Adult Gummies] 1 each PO DAILY Alirocumab [Praluent Pen] 75 mg SQ Q14D No Action Ketorolac [Toradol] 10 mg PO Q6HR Gabapentin [Neurontin] 100 mg PO BID Cyclobenzaprine [Flexeril] 10 mg PO HS [facility] 1 tab PO HS Gabapentin [Neurontin] 100 mg PO BID Discharge Medication List Nitroglycerin 0.4 mg PO DIRECTED PRN 12/21/22 [History] buPROPion HCL [buPROPion HCL XL] 300 mg PO QAM 12/28/22 [History] Alirocumab [Praluent Pen] 75 mg SQ Q14D 02/08/23 [History] [facility] 1 tab PO HS 02/08/23 [History] Cyclobenzaprine [Flexeril] 10 mg PO HS 02/08/23 [History] Gabapentin [Neurontin] 100 mg PO BID 02/08/23 [History] Gabapentin [Neurontin] 100 mg PO BID 02/08/23 [History] Ketorolac [Toradol] 10 mg PO Q6HR 02/08/23 [History] Multivitamin [Multivitamins Adult Gummies] 1 each PO DAILY 02/08/23 [History] OLANZapine 5 mg PO HS 02/08/23 [History] cloNIDine HCL 0.05 mg PO QAM 02/08/23 [History] cloNIDine HCL 0.15 mg PO HS 02/08/23 [History] HYDROcodone/APAP 7.5-325MG [Victoria 7.5] 1 each PO Q6HR PRN #28 tab 02/16/23 [Rx] Sennosides/Docusate Sodium [Senna-S 8.6-50 mg Tablet] 2 each PO DAILY PRN #30 tablet 02/16/23 [Rx] Tamsulosin [Flomax] 0.4 mg PO PC-SUPPER #60 cap 02/16/23 [Rx] cefaDROXiL [Duricef] 500 mg PO Q12HR 5 Days #10 cap 02/16/23 [Rx] polyethylene glycoL 3350 [Miralax] 17 gm PO DAILY PRN #21 packet 02/16/23 [Rx] Follow up Appointment(s)/Referral(s): Lang Muro MD [Primary Care Provider] - As Needed [facility], [NON-STAFF] - As Needed Korey Estrada DO [Doctor of Osteopathic Medicine] - 02/28/23 2:30 pm Stefan Pillai MD [STAFF PHYSICIAN] - 3 Days (Post-op retention, discharged with goins catheter. Office will call to schedule appoinetment ) Sergio Pereira [NON-STAFF] - As Needed (LSO back brace) Patient Instructions/Handouts: Lumbar Spinal Fusion (DC) Activity/Diet/Wound Care/Special Instructions: Spine Discharge and Recovery Instructions Date of Surgery: 02/11/2023 Diagnosis: Lumbar spondylosis, lumbar stenosis Procedure: Revision L3-S1 decompression and fusion Medications: See medication list All medication refills should be obtained through your primary care doctor or your clinic spine surgeon. Please discuss prescription refills at your follow up appointment. Do not call the hospital for medication refills. Dressing: Leave your dressing in place for a total of 5 days post operatively. Then you may remove your dressing and leave open to air. Keep the area clean and if not able to keep area clean, then cover with sterile gauze and tape. Showering: You may shower 3 days after your procedure allowing soap and water to run over incision. Do not scrub. Do not soak. Blot dry. Follow up: Please confirm a follow up appointment with your surgeon 3 weeks post operatively. Please make an appointment to follow up with your PCP in 1-2 weeks after surgery for evaluation 3 phase, 3-week plan POST OP WEEKS 1-3 1. Lifting/carrying/pushing/pulling limited to less than 5 pounds. 2. Do not sit for longer than 15 minutes at one time. Get up and walk around. Prolonged sitting is NOT advised. If you lay down, see if you can tolerate laying down on you front (belly side) 3. Walk for periods of 15 minutes = 1 mile but no longer; do it multiple times times each day. 4. Ice your low back after activity. POST OP WEEKS 3-6 1. Lifting limited to less than 20 pounds. 2. Do not sit for longer than 30 minutes at a time. Frequently change positions. Use a sit-to stand workstation or take frequent breaks from sitting if you have returned to work. 3. Walk for 30 minutes each day. If possible, do these three or more times a day POST OP WEEKS 6+ At your 6-week appointment we will give you a physical therapy referral to focus on a core stabilization and strengthening program. You should also work on leg & buttock strengthening, hamstring & quadriceps stretching, and continue a low impact aerobic activity program such as swimming, walking, or riding a stationary bicycle. During the initial 6 weeks after your surgery, you are at the highest risk of re-injuring your spine. You should generally avoid BLTs (bending, lifting and twisting combination motions) and follow the above guidelines to reduce the chance of reinjury. You can anticipate post op appointments in our office at approximately 3 weeks and 6 weeks after your surgery. INCISION CARE: If your incision is not draining you do NOT need to cover it with a dressing. Keep your incision clean, dry and intact. In most cases, we apply skin glue, berlin or sutures to the incision at the time of surgery. This will be like a crust or have the appearance of a scab and will fall off in time on its own. The stitches or berlin need to be removed at 3 weeks post op appointment. You may begin to shower 3 days after surgery (this allows the glue to arteaga well). However, please avoid scrubbing the incision site or peeling off any of the skin glue. This will ensure optimal healing of your incision. Also, during this time avoid soaking the incision area in water - this includes swimming pools, hot tubs or baths. No ointments, lotions or oils on the incision until your surgeon allows. Leave berlin, sutures or glue in place. Neurological dysfunction that comes on suddenly can also be a sign of a stroke. Below some common symptoms of a stroke are listed: B - balance difficulty such as sudden onset walking or leaning to one side - NEW E - eye problem such as sudden double vision or trouble seeing on one side - NEW F - Facial weakness or numbness on one side - NEW A - Arm or leg weakness or numbness on one side - NEW S - Slurred speech or difficulty with word finding - NEW T - Time is BRAIN! Call 911 as soon as you recognize these symptoms Diet: Consume a regular diet rich in vegetables and lean protein such as chicken or fish. You should consume in a ratio of approximately 20% fats|40% carbohydrates|40%protein. Vegetables, sweet potatoes, brown rice or quinoa are examples of good carbohydrates. Chips, white bread, cookies and sweets/sugar are examples of bad carbohydrates. Limit your bad carbs, go wild with good carbs. "Life's Simple 7" Guidelines as per [place] [employer] These will help you reclaim your life after surgery and help desk analyst in your recovery, keeping in mind your restrictions. (1) Get Active. Physical activity can help people lose weight, control high blood pressure and cholesterol, feel emotionally better, and sleep better. (2) Control Cholesterol. Avoid a diet high in saturated fat, trans fat, & cholesterol. Limit whole milk & cream, ice cream, butter, egg yolks, processed meats (like sausage and hot dogs), and fatty meats. Choose healthy foods that are low in saturated fat, trans fat and cholesterol which include: Fruits and vegetables, fiber rich grain products (like whole grain pasta and brown rice), lean meat such as chicken, fish, nuts, seeds, and legumes. (3) Eat Better. Eat small portions. Shop at the grocery with a list and do not stray from it. Tips for a healthy diet include: Limit sodium intake to less than 1500mg daily, avoid prepackaged, processed, and fast foods, choose a diet rich in fruits, vegetables, and whole grain, high fiber foods, and limit saturated & cholesterol in your diet. (4) Manage Blood Pressure. If you have high blood pressure, you should have a cuff at home so that you can check your blood pressure regularly. Be sure you have a good cuff. An arm one is generally better than a wrist one. Bring the cuff to a doctor's appointment to validate that the measurements that your cuff are taking are accurate. Take your blood pressure twice daily when you are sitting down and relaxing. Record the numbers in a log and bring this log with you to your doctors' appointments. (5) Lose Weight if your BMI is above 25. A healthy BMI is between 19-25. To calculate Your BMI, you may use a Standard BMI Calculator on the NIH BMI website: <www.nhlbi.nih.gov/guidelines/obesity/BMI/bmicalc.htm>. Weigh oneself daily. If you are overweight, set a goal to lose weight. A pound a week loss if needed is a good target. (6) Reduce Blood Sugar. Limit foods and liquids with "added sugars." (Added sugars include sucrose, fructose, glucose, maltose, dextrose, high fructose corn syrup, corn syrup, concentrated fruit juice and honey). (7) Stop Smoking. If you smoke, quitting smoking is one of the best things that you can do for your health. Smoking increases your risk of heart attack, stroke, and peripheral vascular disease, which is a build-up of plaque in your arteries. Please discard all the cigarettes and lighters in your house. Have a plan for what you will do when you have the urge to smoke. Direct and second- hand smoke shortens your life as well as the lives of your family, friends and others around you. For your health and the health of those around you, please consider quitting! Proper Bending Body Mechanics: Maintain a wide stance with one foot slightly in front of the other. Keep your back straight. Bend utilizing the strength in your hips and knees. Do not bend at the waist. Maintain the lifted object at your waist-level close to your body. Avoid lifting weight that causes immediately pain or pain anywhere in the body afterwards. Smoking/Nicotine If there was ever one thing that you could do to increase your overall health, decrease your risk of cardiovascular problems by about 39% the second you make the choice, it is to STOP SMOKING. Your body's most instant gratification is the second you stop smoking. We have all heard the studies, read the articles but it is true, smoking is extremely bad for your overall health, and moreover it is detrimental to your bone health. Nicotine, IN ANY FORM, kills bone cells, prevents your body from healing fractures, and significantly prolongs healing after surgery. In spine surgery specifically, it increases your risk of not healing your bones to create a fusion and increases your risk of having a revision surgery due to this up to 60%. I know it is hard. I know it feels impossible. But there are ways. Take control of your life. We are here to help you through it. And when you are ready, ask us and we can direct you to help if you desire. Use the START Plan to Quit Smoking (please visit the [employer] website listed below for more information): S = Set a quit date. Choose a date within the next 2 weeks, so you have enough time to prepare without losing your motivation to quit. If you mainly smoke at work, quit on the weekend, so you have a few days to adjust to the change. T = Tell family, friends, and co-workers that you plan to quit. Let your friends and family in on your plan to quit smoking and tell them you need their support and encouragement to stop. Look for a quit mary who wants to stop smoking as well. You can help each other get through the rough times. A = Anticipate and plan for the challenges you'll face while quitting. Most people who begin smoking again do so within the first 3 months. You can help yourself make it through by preparing ahead for common challenges, such as nicotine withdrawal and cigarette cravings. R = Remove cigarettes and other tobacco products from your home, car, and work. Throw away all your cigarettes (no emergency pack!), lighters, ashtrays, and matches. Wash your clothes and freshen up anything that smells like smoke. Shampoo your car, clean your drapes and carpet, and steam your furniture. T = Talk to your doctor about getting help to quit. Your doctor can prescribe medication to help with withdrawal and suggest other alternatives. If you can't see a doctor, you can get many products over the counter at your local pharmacy or grocery store, including the nicotine patch, nicotine lozenges, and nicotine gum. Resources for Quitting Smoking: <https://www.[place].gov/documents/[facility]/Quit_Tobacco_Resources_for_patients_313 480_7.pdf> Supplementation: Take recommended dosages of Vitamin D and Calcium to help fortify your bones and help them to heal. See your health maintenance packet for dosages and re commended levels. DVT/VTE prophylaxis: You will be given compression stockings from the hospital. Wear these daily for the first two weeks after surgery. You may take them off at night. You may be prescribed a medication to help thin your blood. Take this as directed. If you are not prescribed this medication, early and frequent ambulation has been shown to be the best prophylaxis to deep vein thrombosis and sequelae related to this event. Discharge Disposition: HOME WITH HOME HEALTH SERVICES
== END 2023-02-16 16:54 | disposition home health service (06) | DRG 454 ==
LOC: 2ORMAIN 09:56 → EDSTATUS 12:30 → 4SSUR 17:07
PROVIDERS: ADMIT Orthopaedic Surgery; ATTEND Orthopaedic Surgery
PROC: 0SP00AZ Removal of Interbody Fusion Device from Lumbar Vertebral Joint, Open Approach (ICD-10-PCS; 2023-02-11)
PROC: 0SP30AZ Removal of Interbody Fusion Device from Lumbosacral Joint, Open Approach (ICD-10-PCS; 2023-02-11)
PROC: 8E0WXBZ Computer Assisted Procedure of Trunk Region (ICD-10-PCS; 2023-02-11)
PROC: 0SG10AJ Fusion of 2 or more Lumbar Vertebral Joints with Interbody Fusion Device, Posterior Approach, Anterior Column, Open Approach (ICD-10-PCS; principal; 2023-02-11 12:30)
PROC: 0SG1071 Fusion of 2 or more Lumbar Vertebral Joints with Autologous Tissue Substitute, Posterior Approach, Posterior Column, Open Approach (ICD-10-PCS; principal; 2023-02-11 12:30)
PROC: 01NB0ZZ Release Lumbar Nerve, Open Approach (ICD-10-PCS; principal; 2023-02-11 12:30)
DX: M47.26 Other spondylosis with radiculopathy, lumbar region (principal); K56.7 Ileus, unspecified; M96.0 Pseudarthrosis after fusion or arthrodesis; K76.0 Fatty (change of) liver, not elsewhere classified; J44.9 Chronic obstructive pulmonary disease, unspecified; F20.9 Schizophrenia, unspecified; K76.9 Liver disease, unspecified; I10 Essential (primary) hypertension; I25.111 Atherosclerotic heart disease of native coronary artery with angina pectoris with documented spasm; F44.81 Dissociative identity disorder; M51.36 Other intervertebral disc degeneration, lumbar region; M48.062 Spinal stenosis, lumbar region with neurogenic claudication; G89.29 Other chronic pain; E78.5 Hyperlipidemia, unspecified; G47.30 Sleep apnea, unspecified; H91.93 Unspecified hearing loss, bilateral; R33.9 Retention of urine, unspecified; G47.33 Obstructive sleep apnea (adult) (pediatric); R25.1 Tremor, unspecified; K21.9 Gastro-esophageal reflux disease without esophagitis; M19.90 Unspecified osteoarthritis, unspecified site; F17.210 Nicotine dependence, cigarettes, uncomplicated; Y83.8 Other surgical procedures as the cause of abnormal reaction of the patient, or of later complication, without mention of misadventure at the time of the procedure; Y79.1 Therapeutic (nonsurgical) and rehabilitative orthopedic devices associated with adverse incidents; Z97.4 Presence of external hearing-aid; Z86.16 Personal history of COVID-19; Z86.14 Personal history of Methicillin resistant Staphylococcus aureus infection; Z79.891 Long term (current) use of opiate analgesic; Z79.899 Other long term (current) drug therapy; Z88.8 Allergy status to other drugs, medicaments and biological substances
CPT/HCPCS: 72100; 72131; 74018; 74022; 80048; 85025; 85027; 86850; 86900; 86901

== ENCOUNTER 2023-02-19 16:31 | Emergency (ER) | payer MEDICARE, OTHER ==
[2023-02-19 16:39] VITALS: TEMP 99.5
[2023-02-19] MEDS ORDERED: MORPHINE SULFATE 4 MG/ML SYRINGE IVP STA ×2 (16:56→18:39)
--- NOTE | 2023-02-19 17:17 | ED ---
Back Pain HPI - General Chief Complaint: Back Pain/Injury Stated Complaint: Back Pain,Fever-post back surgery Time Seen by Provider: 02/19/23 16:44 Source: patient, family (spouse), RN notes reviewed - History of Present Illness Initial Comments: Patient is a 53-year-old male presenting to the emergency room with complaints of fevers and an increase in back pain since discharge from the hospital on 02/16/2023. He underwent L 3 L4 fusion and reperfusion of effusion to L4 through S1 with hardware placed L3 through S1 on 02/11/[address] Estrada. Since his discharge he has been wearing his back brace as prescribed, taking his antibiotic of Duricef and utilizing pain medication as prescribed. He reports an increase in lower extremity weakness and paresthesia with pain now in his groin which was previously isolated to the lower back region. He denies any new weakness, saddle paresthesia, or bowel or bladder incontinence. His reports a T-max of 101.5 which was 2 days ago. He reports occasional chills. he is continuing to have some mild constipation and urinary hesitancy she is which were ongoing during his hospitalization. His incision is open to air and has no drainage; he and his spouse deny any drainage from his incision site. He reports that he is scheduled for follow-up visit with his orthopedist on February 28. He denies any chest pain, shortness of breath, nausea, vomiting, headache, altered mental status/confusion or dizziness. He has a past medical history significant for COPD, hypertension, hyperlipidemia, SHIN, coronary artery spasms, gout, skin cancer, arthritis, and sleep apnea without use of CPAP. - Related Data Home Medications Medication Instructions Recorded Confirmed Nitroglycerin 0.4 mg PO DIRECTED PRN 12/21/22 02/11/23 buPROPion HCL [buPROPion HCL XL] 300 mg PO QAM 12/28/22 02/11/23 Alirocumab [Praluent Pen] 75 mg SQ Q14D 02/08/23 02/11/23 [facility] Nighttime Sleep Aid 1 tab PO HS 02/08/23 02/11/23 Cyclobenzaprine [Flexeril] 10 mg PO HS 02/08/23 02/11/23 Gabapentin [Neurontin] 100 mg PO BID 02/08/23 02/11/23 Gabapentin [Neurontin] 100 mg PO BID 02/08/23 02/11/23 Ketorolac [Toradol] 10 mg PO Q6HR 02/08/23 02/11/23 Multivitamin [Multivitamins Adult 1 each PO DAILY 02/08/23 02/11/23 Gummies] OLANZapine 5 mg PO HS 02/08/23 02/11/23 cloNIDine HCL 0.05 mg PO QAM 02/08/23 02/11/23 cloNIDine HCL 0.15 mg PO HS 02/08/23 02/11/23 Previous Rx's Medication Instructions Recorded HYDROcodone/APAP 7.5-325MG [[place] 1 each PO Q6HR PRN #28 tab 02/16/23 7.5] Sennosides/Docusate Sodium 2 each PO DAILY PRN #30 tablet 02/16/23 [Senna-S 8.6-50 mg Tablet] Tamsulosin [Flomax] 0.4 mg PO PC-SUPPER #60 cap 02/16/23 cefaDROXiL [Duricef] 500 mg PO Q12HR 5 Days #10 cap 02/16/23 polyethylene glycoL 3350 [Miralax] 17 gm PO DAILY PRN #21 packet 02/16/23 Cyclobenzaprine HCl 10 mg PO TID PRN 7 Days #21 tab 02/19/23 Allergies Allergy/AdvReac Type Severity Reaction Status Date / Time sertraline HCl [From Zoloft] Allergy Unknown Anaphylaxis Verified 02/19/23 16:39 fluoxetine HCl [From Prozac] AdvReac Intermediate Disoriented, Verified 02/19/23 16:39 Verbally Violent buspirone [From BuSpar] AdvReac Unknown Verified 02/19/23 16:39 quetiapine [From Seroquel] AdvReac Unknown Verified 02/19/23 16:39 rosuvastatin [From Crestor] AdvReac Confusion Verified 02/19/23 16:39 venlafaxine [From Effexor] AdvReac Nausea Verified 02/19/23 16:39 Review of Systems ROS Statement: Those systems with pertinent positive or pertinent negative responses have been documented in the HPI. ROS Other: All systems not noted in ROS Statement are negative. Past Medical History Past Medical History: Cancer, COPD, GERD/Reflux, Hearing Disorder / Deafness, Hyperlipidemia, Hypertension, Liver Disease, Musculoskeletal Disorder, Osteoarthritis (OA), Sleep Apnea/CPAP/BIPAP Additional Past Medical History / Comment(s): Coronary artery spasms, hx gout, chronic back pain, dizziness, hx. H Pylori, hiatal hernia, hx skin cancer, fatty liver, doens't use CPAP, occasional hand tremors, hx Covid 11/03, bilateral hearing aids. History of Any Multi-Drug Resistant Organisms: MRSA Date of last positivie culture/infection: 2014 MDRO Source:: from back surgery Past Surgical History: Back Surgery, Heart Catheterization, Orthopedic Surgery Additional Past Surgical History / Comment(s): Lumbar laminectomy with decompression and fusion L4-S1 with cell saver, titanuim hoda, screws and pins, left carpal tunnel surgery, EGD with biopsy of stomach for H Pylori, moles removed. Past Anesthesia/Blood Transfusion Reactions: Previous Problems w/ Anesthesia, Motion Sickness Additional Past Anesthesia/Blood Transfusion Reaction / Comment(s): With last surgery slow to wake up, clausterphobia. Past Psychological History: Anxiety, Depression, Schizophrenia Smoking Status: Current every day smoker Past Alcohol Use History: None Reported Past Drug Use History: None Reported - Past Family History Mother Family Medical History: Cancer, Deep Vein Thrombosis (DVT), Pulmonary Embolus Additional Family Medical History / Comment(s): Skin cancer. Heart problems. Father Family Medical History: Cancer Additional Family Medical History / Comment(s): Bone cancer. General Exam Limitations: no limitations General appearance: alert, in no apparent distress Head exam: Present: atraumatic, normocephalic, normal inspection Eye exam: Present: normal appearance, PERRL, EOMI. Absent: scleral icterus, conjunctival injection, periorbital swelling ENT exam: Present: normal exam, mucous membranes moist Neck exam: Present: normal inspection, full ROM. Absent: tenderness Respiratory exam: Present: normal lung sounds bilaterally. Absent: respiratory distress, wheezes, rales, rhonchi, stridor Cardiovascular Exam: Present: regular rate, normal rhythm, normal heart sounds. Absent: systolic murmur, diastolic murmur, rubs, gallop, clicks GI/Abdominal exam: Present: soft, normal bowel sounds. Absent: distended, tenderness, guarding, rebound, rigid Extremities exam: Present: normal inspection, full ROM. Absent: pedal edema, joint swelling Back exam: Present: tenderness, vertebral tenderness (incisional tenderness over L3 through S1 vertebrae). Absent: rash noted Neurological exam: Present: alert, oriented X3, CN II-XII intact Psychiatric exam: Present: normal affect, normal mood Skin exam: Present: warm, dry, normal color, other (lumbar spine incision with [place] intact, no surrounding erythema near trace amount of incisional swelling without dehiscence or drainage. Healing ecchymosis around incision site noted.). Absent: rash Course Vital Signs 02/19/23 02/19/23 16:37 17:35 Temperature 99.5 F Pulse Rate 99 86 Respiratory 18 15 Rate Blood Pressure 113/68 105/61 O2 Sat by Pulse 98 95 Oximetry Medical Decision Making - Medical Decision Making Was pt. sent in by a medical professional or institution (, PA, FISH EGG P[employer]ER, urgent care, hospital, or shelter...) When possible be specific @ -No Did you speak to anyone other than the patient for history (EMS, parent, family, police, friend...)? What history was obtained from this source @ -No Did you review nursing and triage notes (agree or disagree)? Why? @ -I reviewed and agree with nursing and triage notes Were old charts reviewed (outside hosp., previous admission, EMS record, old EKG, old radiological studies, urgent care reports/EKG's, shelter records)? Report findings @ -No old charts were reviewed Differential Diagnosis (chest pain, altered mental status, abdominal pain women, abdominal pain men, vaginal bleeding, weakness, fever, dyspnea, syncope, headache, dizziness, GI bleed, back pain, seizure, CVA, palpatations, mental health, musculoskeletal)? @ -Differential Fever: Pneumonia, viral URI, endocarditis, myocarditis, pericarditis, otitis, sinusitis, peritonsillar Abscess, retropharyngeal Abscess, epiglottitis, peritonitis, appendicitis, Edwige cystitis, diverticulitis, hepatitis, colitis, UTI, PID, TOA, pyelonephritis, prostatitis, epididymitis, meningitis, encephalitis, pulmonary embolism, CVA, thyroid storm, pancreatitis, adrenal crisis, cavernous sinus thrombosis, this is not meant to be an all-inclusive list. EKG interpreted by me (3pts min.). @ -None done X-rays interpreted by me (1pt min.). @ -None done CT interpreted by me (1pt min.). @ -None done U/S interpreted by me (1pt. min.). @ -None done What testing was considered but not performed or refused? (CT, X-rays, U/S, labs)? Why? @ -None What meds were considered but not given or refused? Why? @ -None Did you discuss the management of the patient with other professionals (professionals i.e. Dr., PA, [employer] E[employer] P[employer]ER, lab, RT, psych nurse, psychologist social, balloon artist, teacher, aboriginal home school liaison officer, case management manager)? Give summary @ -Yes, Spoke with Anatoly Ugalde on-call for Dr. Estrada regarding patient presentation and workup. He advised no need for admission at this time. He advised pain control and discussion of symptomatology with patient and follow-up with Dr. Estrada next week Per recommendation by orthopedist no need for further laboratory studies or diagnostic imaging at this time. Was smoking cessation discussed for >3mins.? @ -No Was critical care preformed (if so, how long)? @ -No Were there social determinants of health that impacted care today? How? (Homele ssness, low income, unemployed, alcoholism, drug addiction, transportation, low edu. Level, literacy, decrease access to med. care, long term, rehab)? @ -No Was there de-escalation of care discussed even if they declined (Discuss DNR or withdrawal of care, Hospice)? DNR status @ -No What co-morbidities impacted this encounter? (DM, HTN, Smoking, COPD, CAD, Cancer, CVA, ARF, Chemo, Hep., AIDS, mental health diagnosis, sleep apnea, morbid obesity)? @ -None Was patient admitted / discharged? Hospital course, mention meds given and route, prescriptions, significant lab abnormalities, going to OR and other pertinent info. @ - 53-year-old male presenting to the emergency room with complaints of fevers and an increase in back pain since discharge from the hospital on 02/16/2023. Lumbar spine surgery by Dr. Estrada on 02/11/2023. He reports an increase in lower extremity weakness and paresthesia with pain now in his groin which was previously isolated to the lower back region. No new weakness, saddle paresthesia, or bowel or bladder incontinence. Incision without any erythema or drainage. Temperature stable at 99.5. Will give morphine for pain and obtain laboratory studies of CBC, blood cultures, CMP and lactic acid. Pain continues despite morphine. Laboratory studies reveal slightly low hemoglobin at 11.6, normal white blood cell count and normal differential. Lactic acid normal. Liver enzymes mildly elevated however chronically elevated due to Shin. Increase in alkaline phosphatase consistent with recent constipation and ileus; no nausea or vomiting. Will page orthopedic physician assurance assistant for further recommendations regarding workup and possible admission for intractable back pain and fevers. Spoke with Anatoly Ugalde on-call for Dr. Estrada regarding patient presentation and workup. He advised no need for admission at this time. He advised pain control and discussion of symptomatology with patient and follow-up with Dr. Estrada next week. Will give additional dose of morphine and monitor response. Per recommendation by orthopedist no need for further laboratory studies or diagnostic imaging at this time. Pain improved with second dose of morphine. Will give flexeril to take in addition to already prescribed [place]ow 7.5/325 from othopedist. advise caution when taking multiple medications that may cause drowsiness. Advise completion of current antibiotic prescription of Duricef as prescribed. Questions and concerns answered. Advise continuation of current restrictions of ambulation, driving, bathing and lifting restrictions. Strict return parameters to the emergency room discussed at length. Advised follow-up with orthopedist next week rather than on February 28 as scheduled. Will discharge patient home in stable condition with continuation of current medication for postoperative pain along with addition of Flexeril to utilize as needed with caution for pain as well advising follow-up next week with Dr. Ya aguilar sent. Undiagnosed new problem with uncertain prognosis? @ -No Drug Therapy requiring intensive monitoring for toxicity (Heparin, Nitro, Insul in, Cardizem)? @ -No Were any procedures done? @ -No Diagnosis/symptom? @ -Postoperative back pain with radiculopathy Acute, or Chronic, or Acute on Chronic? @ -Acute Uncomplicated (without systemic symptoms) or Complicated (systemic symptoms)? @ -Uncomplicated Side effects of treatment? @ -No Exacerbation, Progression, or Severe Exacerbation? @ -No Poses a threat to life or bodily function? How? (Chest pain, [place], [place], pneumonia, PE, COPD, DKA, ARF, appy, cholecystitis, CVA, Diverticulitis, Homicidal, Suicidal, threat to staff... and all critical care pts) @ -No. Case discussed with Dr. Jeffries - Lab Data Result diagrams: 02/19/23 17:35 02/19/23 17:35 Lab Results 02/19/23 02/19/23 02/19/23 Range/Units 17:35 17:35 17:35 WBC 8.9 (3.8-10.6) k/uL RBC 3.83 L (4.30-5.90) m/uL Hgb 11.6 L (13.0-17.5) gm/dL Hct 35.1 L (39.0-53.0) % MCV 91.7 (80.0-100.0) fL MCH 30.4 (25.0-35.0) pg MCHC 33.1 (31.0-37.0) g/dL RDW 13.0 (11.5-15.5) % Plt Count 307 (150-450) k/uL MPV 8.1 Neutrophils % 71 % Lymphocytes % 15 % Monocytes % 7 % Eosinophils % 4 % Basophils % 0 % Neutrophils # 6.4 (1.3-7.7) k/uL Lymphocytes # 1.4 (1.0-4.8) k/uL Monocytes # 0.6 (0-1.0) k/uL Eosinophils # 0.3 (0-0.7) k/uL Basophils # 0.0 (0-0.2) k/uL Sodium 135 L (137-145) mmol/L Potassium 4.4 (3.5-5.1) mmol/L Chloride 101 (98-107) mmol/L Carbon Dioxide 25 (22-30) mmol/L Anion Gap 9 mmol/L BUN 19 (9-20) mg/dL Creatinine 0.87 (0.66-1.25) mg/dL Est GFR (CKD-EPI)AfAm >90 (>60 ml/min/1.73 sqM) Est GFR (CKD-EPI)NonAf >90 (>60 ml/min/1.73 sqM) Glucose 94 (74-99) mg/dL Plasma Lactic Acid Chemo 1.8 (0.7-2.0) mmol/L Calcium 8.4 (8.4-10.2) mg/dL Total Bilirubin 0.4 (0.2-1.3) mg/dL AST 98 H (17-59) U/L ALT 121 H (4-49) U/L Alkaline Phosphatase 364 H (38-126) U/L Total Protein 5.8 L (6.3-8.2) g/dL Albumin 3.3 L (3.5-5.0) g/dL Disposition Clinical Impression: Post-operative pain Disposition: HOME SELF-CARE Condition: Stable Instructions (If sedation given, give patient instructions): Wound Healing and Your Diet (ED) Additional Instructions: Continue your wound care and activity per your orthopedist recommendations. Continue your current antibiotic and pain medications per your orthopedic prescription. Utilize muscle relaxer for additional pain and muscle spasms as needed. Please follow-up with your orthopedist next week.Please return to the Emergency Department if symptoms worsen or any other concerns. Prescriptions: Cyclobenzaprine HCl 10 mg PO TID PRN 7 Days #21 tab PRN Reason: Spasms Is patient prescribed a controlled substance at d/c from ED?: No Referrals: Lang Muro MD [Primary Care Provider] - 1-2 days Korey Estrada DO [Doctor of Osteopathic Medicine] - 1-2 days Time of Disposition: 19:30
[2023-02-19 17:40] VITALS: BP 105/61; PULSE 86; RESP 15
[2023-02-19 18:15] LABS: Basophils % (A) 0 %; Eosinophils # (A) 0.3 k/uL (0-0.7); Eosinophils % (A) 4 %; HCT 35.1 % (39.0-53.0); HGB 11.6 gm/dL (13.0-17.5); Lymphocytes # (A) 1.4 k/uL (1.0-4.8); Lymphocytes % (A) 15 %; MCH 30.4 pg (25.0-35.0); MCHC 33.1 g/dL (31.0-37.0); MCV 91.7 fL (80.0-100.0); Mean Platelet Volume 8.1; Monocytes # (A) 0.6 k/uL (0-1.0); Monocytes % (A) 7 %; Neutrophils # (A) 6.4 k/uL (1.3-7.7); Neutrophils % (A) 71 %; Platelet Count 307 k/uL (150-450); RBC 3.83 m/uL (4.30-5.90); WBC 8.9 k/uL (3.8-10.6)
[2023-02-19 18:19] LABS: ALT 121 U/L (4-49); AST 98 U/L (17-59); African American GFR (CKD) >90 (>60 ml/min/1.73 sqM); Albumin 3.3 g/dL (3.5-5.0); Alkaline Phosphatase 364 U/L (38-126); Anion Gap 9 mmol/L; Blood Urea Nitrogen 19 mg/dL (9-20); Calcium 8.4 mg/dL (8.4-10.2); Carbon Dioxide 25 mmol/L (22-30); Chloride 101 mmol/L (98-107); Glucose 94 mg/dL (74-99); Non-African American GFR(CKD) >90 (>60 ml/min/1.73 sqM); Potassium 4.4 mmol/L (3.5-5.1); Sodium 135 mmol/L (137-145); Total Bilirubin 0.4 mg/dL (0.2-1.3); Total Protein 5.8 g/dL (6.3-8.2)
== END 2023-02-19 19:45 | disposition home or self-care (01) ==
LOC: EC 16:31
DX: G89.18 Other acute postprocedural pain (principal); M54.16 Radiculopathy, lumbar region; I10 Essential (primary) hypertension; J44.9 Chronic obstructive pulmonary disease, unspecified; F32.A Depression, unspecified; F41.9 Anxiety disorder, unspecified; F20.9 Schizophrenia, unspecified; F17.200 Nicotine dependence, unspecified, uncomplicated; Z79.899 Other long term (current) drug therapy; Z88.8 Allergy status to other drugs, medicaments and biological substances; Z86.16 Personal history of COVID-19
CPT/HCPCS: 36415; 80053; 83605; 85025; 87040; 99283; 96374; 96376; J2270

== ENCOUNTER 2023-02-24 02:01 | Emergency (ER) | payer MEDICARE, OTHER ==
[2023-02-24 02:08] VITALS: TEMP 98
[2023-02-24] MEDS ORDERED: MORPHINE SULFATE 4 MG/ML SYRINGE IM STA ×2 (02:17→03:45)
--- NOTE | 2023-02-24 03:29 | CT ---
EXAM: CT Lumbar Spine Without Intravenous Contrast CLINICAL HISTORY: ITS.REASON CT Reason: recent surgery, left hip pain TECHNIQUE: Axial computed tomography images of the lumbar spine without intravenous contrast. CTDI is 23.3 mGy and DLP is 851.9 mGy-cm. This CT exam was performed using one or more of the following dose reduction techniques: automated exposure control, adjustment of the mA and/or kV according to patient size, and/or use of iterative reconstruction technique. COMPARISON: No relevant prior studies available. FINDINGS: Evaluation limited due to metallic artifact. Vertebrae: No acute fracture. No subluxation. Extensive posterior fusion and decompression. Discs/spinal canal/neural foramina: Difficult to evaluate Soft tissues: Soft tissue swelling and postop changes are seen.. IMPRESSION: Postop changes are seen from extensive posterior fusion and decompression. For better characterization recommend MRI with metallic suppression protocol
--- NOTE | 2023-02-24 03:42 | CT ---
EXAM: CT Pelvis Without Intravenous Contrast CLINICAL HISTORY: ITS.REASON CT Reason: recent surgery, left hip pain TECHNIQUE: Axial computed tomography images of the pelvis without intravenous contrast. CTDI is 8.4 mGy and DLP is 255.9 mGy-cm. This CT exam was performed using one or more of the following dose reduction techniques: automated exposure control, adjustment of the mA and/or kV according to patient size, and/or use of iterative reconstruction technique. COMPARISON: No relevant prior studies available. FINDINGS: Bones: No acute fracture or subluxation. Soft tissue: Postop changes from lumbar fusion and posterior decompression. Mildly enlarged prostate. IMPRESSION: No acute findings, specifically in the left hip.
--- NOTE | 2023-02-24 03:47 | ED ---
General Adult HPI - General Chief complaint: Extremity Problem,Nontraumatic Stated complaint: Left Hip Injury, Leg Pain Time Seen by Provider: 02/24/23 02:12 Source: patient, RN notes reviewed, old records reviewed Mode of arrival: wheelchair Limitations: no limitations - History of Present Illness Initial comments: Patient is a 53-year-old male who presents emergency Department complaining of mechanical left hip pain. Patient recently had lower lumbar spine surgery done by Dr. Beltran in late last month. States he was walking at home with his w alker and he felt something "pop" in his left hip. Had some pain with movement of his left hip. Was immediately brought here for evaluation. States he has pain with movement of his left hip. No falls. No obvious trauma. States he has a history of osteoporosis and is nervous that he may have broken something. Denies any obvious injuries. Is already on [place] at home as well as Neurontin for pain. Presents for further evaluation. Denies any sensory deficits that are acute. Endorses some mild weakness secondary to pain in the left hip. Does endorse some lower back pain as well but this has been chronic since surgery with no obvious fevers or discharge from the site. Presents for further evaluation. Denies saddle anesthesia. Denies paralysis.Patient denies urinary and bowel incontinence or retention. - Related Data Home Medications Medication Instructions Recorded Confirmed Nitroglycerin 0.4 mg PO DIRECTED PRN 12/21/22 02/11/23 buPROPion HCL [buPROPion HCL XL] 300 mg PO QAM 12/28/22 02/11/23 Alirocumab [Praluent Pen] 75 mg SQ Q14D 02/08/23 02/11/23 [facility] Night[facility] Sleep Aid 1 tab PO HS 02/08/23 02/11/23 Cyclobenzaprine [Flexeril] 10 mg PO HS 02/08/23 02/11/23 Gabapentin [Neurontin] 100 mg PO BID 02/08/23 02/11/23 Gabapentin [Neurontin] 100 mg PO BID 02/08/23 02/11/23 Ketorolac [Toradol] 10 mg PO Q6HR 02/08/23 02/11/23 Multivitamin [Multivitamins Adult 1 each PO DAILY 02/08/23 02/11/23 Gummies] OLANZapine 5 mg PO HS 02/08/23 02/11/23 cloNIDine HCL 0.05 mg PO QAM 02/08/23 02/11/23 cloNIDine HCL 0.15 mg PO HS 02/08/23 02/11/23 Previous Rx's Medication Instructions Recorded HYDROcodone/APAP 7.5-325MG [[place] 1 each PO Q6HR PRN #28 tab 02/16/23 7.5] Sennosides/Docusate Sodium 2 each PO DAILY PRN #30 tablet 02/16/23 [Senna-S 8.6-50 mg Tablet] Tamsulosin [Flomax] 0.4 mg PO PC-SUPPER #60 cap 02/16/23 cefaDROXiL [Duricef] 500 mg PO Q12HR 5 Days #10 cap 02/16/23 polyethylene glycoL 3350 [Miralax] 17 gm PO DAILY PRN #21 packet 02/16/23 Cyclobenzaprine HCl 10 mg PO TID PRN 7 Days #21 tab 02/19/23 Allergies Allergy/AdvReac Type Severity Reaction Status Date / Time sertraline HCl [From Zoloft] Allergy Unknown Anaphylaxis Verified 02/24/23 02:08 fluoxetine HCl [From Prozac] AdvReac Intermediate Disoriented, Verified 02/24/23 02:08 Verbally Violent buspirone [From BuSpar] AdvReac Unknown Verified 02/24/23 02:08 quetiapine [From Seroquel] AdvReac Unknown Verified 02/24/23 02:08 rosuvastatin [From Crestor] AdvReac Confusion Verified 02/24/23 02:08 venlafaxine [From Effexor] AdvReac Nausea Verified 02/24/23 02:08 Review of Systems ROS Statement: Those systems with pertinent positive or pertinent negative responses have been documented in the HPI. Review of Systems: CONST: Denies fever EYES: Denies blurry vision ENT: Denies nasal congestion C/V: Denies Chest pain RESP: Denies shortness of breath GI: Denies abdominal pain : Denies dysuria SKIN: Denies rash. MSK: Endorses Left hip pain. NEURO: Denies headache ROS Other: All systems not noted in ROS Statement are negative. Past Medical History Past Medical History: Cancer, COPD, GERD/Reflux, Hearing Disorder / Deafness, Hyperlipidemia, Hypertension, Liver Disease, Musculoskeletal Disorder, Osteoarthritis (OA), Sleep Apnea/CPAP/BIPAP Additional Past Medical History / Comment(s): Coronary artery spasms, hx gout, chronic back pain, dizziness, hx. H Pylori, hiatal hernia, hx skin cancer, fatty liver, doens't use CPAP, occasional hand tremors, hx Covid 11/03, bilateral hear ing aids. History of Any Multi-Drug Resistant Organisms: MRSA Date of last positivie culture/infection: 2014 MDRO Source:: from back surgery Past Surgical History: Back Surgery, Heart Catheterization, Orthopedic Surgery Additional Past Surgical History / Comment(s): Lumbar laminectomy with decompression and fusion L4-S1 with cell saver, titanuim hoda, screws and pins, left carpal tunnel surgery, EGD with biopsy of stomach for H Pylori, moles removed. Past Anesthesia/Blood Transfusion Reactions: Previous Problems w/ Anesthesia, Motion Sickness Additional Past Anesthesia/Blood Transfusion Reaction / Comment(s): With last surgery slow to wake up, clausterphobia. Past Psychological History: Anxiety, Depression, Schizophrenia Smoking Status: Current every day smoker Past Alcohol Use History: None Reported Past Drug Use History: None Reported - Past Family History Mother Family Medical History: Cancer, Deep Vein Thrombosis (DVT), Pulmonary Embolus Additional Family Medical History / Comment(s): Skin cancer. Heart problems. Father Family Medical History: Cancer Additional Family Medical History / Comment(s): Bone cancer. General Exam - General Exam Comments Initial Comments: General: Appears in no acute distress. HEAD: Normal with no signs of head trauma. EYES: PERRLA, EOMI, conjunctiva normal, no discharge. ENT: Hearing grossly intact, normal oropharynx. RESPIRATORY: Clear breath sounds bilaterally. No wheezes, rales, or rhonchi. C/V: Regular rate and rhythm. S1 and S2 auscultated. Peripheral pulses 2+ and intact throughout. ABD: Abd is soft, nontender, nondistended EXT: Normal range of motion, no obvious deformity. Patient's lumbar spine has [place] in place and appear intact. Wound is clean. Mild left hip tenderness to palpation. No obvious deformity. No leg shortening. No tenderness palpation of the femur or knee. Normal range of motion of these joints. The strange motion left hip secondary to pain. SKIN: No rashes or lesions observed on exposed skin. Surgical incision appears clean and intact. NEURO: Alert and oriented 4. No obvious focal acute deficits appreciated. Limitations: no limitations Course Vital Signs 02/24/23 02/24/23 02:06 04:03 Temperature 98.0 F Pulse Rate 98 88 Respiratory 20 18 Rate Blood Pressure 102/74 106/72 O2 Sat by Pulse 97 98 Oximetry Medical Decision Making - Medical Decision Making Was pt. sent in by a medical professional or institution (, FELICIA, GETTERING FILAMENT MACHINE OPERATOR, urgent care, hospital, or snf...) When possible be specific @ -No Did you speak to anyone other than the patient for history (EMS, parent, family, police, friend...)? What history was obtained from this source @ -No Did you review nursing and triage notes (agree or disagree)? Why? @ -I reviewed and agree with nursing and triage notes Were old charts reviewed (outside hosp., previous admission, EMS record, old EKG, old radiological studies, urgent care reports/EKG's, snf records)? Report findings @ -Recent charts were reviewed for his recent surgery in January 2023. Differential Diagnosis (chest pain, altered mental status, abdominal pain women, abdominal pain men, vaginal bleeding, weakness, fever, dyspnea, syncope, headac he, dizziness, GI bleed, back pain, seizure, CVA, palpatations, mental health, musculoskeletal)? @ -Muscle strain, muscle sprain, bony traumatic injury, postop complication. This list is not all inclusive. EKG interpreted by me (3pts min.). @ -None done X-rays interpreted by me (1pt min.). @ -None done CT interpreted by me (1pt min.). @ -CT lumbar spine shows postop changes without any obvious acute process. CT pelvis reveals no obvious acute injury. U/S interpreted by me (1pt. min.). @ -None done What testing was considered but not performed or refused? (CT, X-rays, U/S, labs)? Why? @ -None What meds were considered but not given or refused? Why? @ -None Did you discuss the management of the patient with other professionals (professionals i.e. FELICIA Cooper, GETTERING FILAMENT MACHINE OPERATOR, lab, RT, psych nurse, social service agency director, bookkeeping assistant, teacher, safety instruction police officer, residential case manager)? Give summary @ -No Was smoking cessation discussed for >3mins.? @ -No Was critical care preformed (if so, how long)? @ -No Were there social determinants of health that impacted care today? How? (Homelessness, low income, unemployed, alcoholism, drug addiction, transportation, low edu. Level, literacy, decrease access to med. care, [facility], rehab)? @ -No Was there de-escalation of care discussed even if they declined (Discuss DNR or withdrawal of care, Hospice)? DNR status @ -No What co-morbidities impacted this encounter? (DM, HTN, Smoking, COPD, CAD, Cancer, CVA, ARF, Chemo, Hep., AIDS, mental health diagnosis, sleep apnea, morbid obesity)? @ -None Was patient admitted / discharged? Hospital course, mention meds given and route, prescriptions, significant lab abnormalities, going to OR and other pertinent info. @ -Based on the patient's presentation and physical exam, he presents complaining of sudden onset left hip pain with ambulating. He is already on pain medications at home. States this has not helped with his pain. We will obtain CT of the lumbar spine and CT pelvis as he did recently have lumbar spine surgery. Patient has no red flag symptoms to make me concern for cauda equina syndrome. Vital signs within acceptable limits. Exam is unremarkable. He will be given IM morphine for pain and we will obtain CT imaging. He was in agreement with this plan. Imaging is unremarkable for any acute process. On reevaluation I discussed this with the patient. He appears more comfortable but is asking for more pain meds. We did discuss that he is already on [place] as well as gabapentin at home. We'll provide him with one more dose of IM morphine and he will be discharged home with close follow-up with Dr. Estrada. He was in agreement with this plan. We discussed that this likely muscle strain or sprain. He should continue to ambulate with a walker. I instructed the patient to follow up with their PCP in the next 1-3 days. I explained that the patient should return to the emergency department if they experience any worsening symptoms. Strict return precautions were discussed with the patient. The patient expressed understanding of these instructions. I answered all questions that the patient had. The patient was discharged home in good condition with their prescriptions and follow up information. Undiagnosed new problem with uncertain prognosis? @ -No Drug Therapy requiring intensive monitoring for toxicity (Heparin, Nitro, Insulin, Cardizem)? @ -No Were any procedures done? @ -No Diagnosis/symptom? @ -Left hip pain Acute, or Chronic, or Acute on Chronic? @ -Acute Uncomplicated (without systemic symptoms) or Complicated (systemic symptoms)? @ -Uncomplicated Side effects of treatment? @ -No Exacerbation, Progression, or Severe Exacerbation? @ -No Poses a threat to life or bodily function? How? (Chest pain, [place], ID, pneumonia, PE, COPD, DKA, ARF, appy, cholecystitis, CVA, Diverticulitis, Homicidal, Suicidal, threat to staff... and all critical care pts) @ -No Disposition Clinical Impression: Hip pain Disposition: HOME SELF-CARE Condition: Good Instructions (If sedation given, give patient instructions): Hip Pain (ED) Is patient prescribed a controlled substance at d/c from ED?: No Referrals: Lang Muro MD [Primary Care Provider] - 1-2 days Time of Disposition: 03:46
[2023-02-24 04:05] VITALS: BP 106/72; PULSE 88; RESP 18
== END 2023-02-24 04:05 | disposition home or self-care (01) ==
LOC: EC 02:01
DX: M25.552 Pain in left hip (principal); E78.5 Hyperlipidemia, unspecified; F32.A Depression, unspecified; F41.9 Anxiety disorder, unspecified; G47.30 Sleep apnea, unspecified; I10 Essential (primary) hypertension; J44.9 Chronic obstructive pulmonary disease, unspecified; K21.9 Gastro-esophageal reflux disease without esophagitis; M19.90 Unspecified osteoarthritis, unspecified site; F17.200 Nicotine dependence, unspecified, uncomplicated; Z86.16 Personal history of COVID-19; Z79.899 Other long term (current) drug therapy; Z88.8 Allergy status to other drugs, medicaments and biological substances
CPT/HCPCS: 72192; 72131; 99283; 96372 ×2; J2270

== ENCOUNTER → 2023-10-27 | Outpatient (CLI) | payer MEDICARE, OTHER ==
[2023-10-27 19:08] LABS: ALT 38 U/L (10-49); AST 26 U/L (14-35); Albumin 4.5 g/dL (3.8-4.9); Albumin/Globulin Ratio 1.96 Ratio (1.60-3.17); Alkaline Phosphatase 92 U/L (41-126); BUN/Creat Ratio 11.18 Ratio (12.00-20.00); Blood Urea Nitrogen 12.3 mg/dL (9.0-27.0); Calcium 9.5 mg/dL (8.7-10.3); Carbon Dioxide 27.4 mmol/L (21.6-31.8); Chloride 104 mmol/L (96-109); Chol/HDL Ratio 3.09 Ratio; Globulin 2.3 g/dL (1.6-3.3); Glucose 98 mg/dL (70-110); LDL Cholesterol,Calculated 45.8 mg/dL (0.0-131.0); Potassium 4.3 mmol/L (3.5-5.5); Sodium 141 mmol/L (135-145); Total Bilirubin 0.3 mg/dL (0.3-1.2); Total Protein 6.8 g/dL (6.2-8.2)
== END | disposition home or self-care (01) ==
LOC: LABWHC1 10:08
PROVIDERS: ATTEND Internal Medicine Interventional Cardiology
DX: E78.2 Mixed hyperlipidemia (principal)
CPT/HCPCS: 36415; 80053; 80061

== ENCOUNTER → 2023-12-06 | Outpatient (CLI) | payer MEDICARE, OTHER ==
--- NOTE | 2023-12-07 21:03 | XR ---
EXAMINATION TYPE: XR foot complete RT DATE OF EXAM: 12/06/2023 COMPARISON: NONE HISTORY: 53-year-old male M79.671 PAIN IN RIGHT FOOT TECHNIQUE: 3 views FINDINGS: Moderate to severe degenerative change first MTP joint with bulky marginal spurring, joint space narr owing, subchondral sclerosis. No acute fracture, subluxation, dislocation is seen. IMPRESSION: Moderate to severe first MTP joint OA, possible hallux rigidus. No acute osseous abnormality seen.
== END | disposition home or self-care (01) ==
LOC: RADXRMAIN 12:19
PROVIDERS: ATTEND Family Medicine
DX: M19.071 Primary osteoarthritis, right ankle and foot (principal)

== ENCOUNTER → 2024-01-05 | Outpatient (CLI) | payer MEDICARE, OTHER ==
[2024-01-05 15:36] LABS: Calcium 9.5 mg/dL (8.7-10.3)
== END | disposition home or self-care (01) ==
LOC: LABWHC1 09:13
PROVIDERS: ATTEND Psychiatry & Neurology Neurology
DX: G44.209 Tension-type headache, unspecified, not intractable (principal); R41.3 Other amnesia; Z79.899 Other long term (current) drug therapy
CPT/HCPCS: 36415; 82306; 82310; 82607; 82746; 83036; 84443

== ENCOUNTER → 2024-02-13 | Outpatient (CLI) | payer MEDICARE, OTHER ==
--- NOTE | 2024-02-13 21:03 | MR ---
EXAMINATION TYPE: MR lumbar spine wo con DATE OF EXAM: 02/13/2024 COMPARISON: 08/27/2015 HISTORY: Low back pain into both buttocks x1 year, Hx back surgery January 2023 TECHNIQUE: Multiplanar, multisequence images of the lumbar spine were acquired without IV contrast. Findings: There are postsurgical changes of wide laminectomy and posterior fusion of L3, L4, L5 and S1. There i s interbody fusion as well. The L1-2 and L2-3 discs spaces are preserved. Metallic artifact obscures evaluation of the thecal sac. There is no evidence of cervical stenosis or lumbar disc herniation. IMPRESSION: 1. Extensive postsurgical changes of laminectomy and fusion from L3 through S1. 2. No definite spinal stenosis or lumbar disc herniation.
== END | disposition home or self-care (01) ==
LOC: RADMRIMAIN 19:00
PROVIDERS: ATTEND Orthopaedic Surgery
DX: M54.2 Cervicalgia (principal)
CPT/HCPCS: 72148

== ENCOUNTER 2024-05-16 16:57 | Emergency (ER) | payer MEDICARE, OTHER ==
--- NOTE | 2024-05-16 17:17 | ED ---
Extremity Problem HPI - General Source: patient, RN notes reviewed Mode of arrival: ambulatory Limitations: no limitations <Jaz Rosenberg - Last Filed: 05/16/24 17:16> <Paul Rice - Last Filed: 05/16/24 21:16> - General Chief complaint: Extremity Problem,Nontraumatic Stated complaint: post op comp, R leg Time Seen by Provider: 05/16/24 17:16 - History of Present Illness Initial comments: Quick note: 54-year-old male presenting to the ER with a chief complaint of right calf swelling. Patient underwent surgery of his great right toe yesterday. He states today he started to notice calf pain and swelling. He does report a history of blood clots in his "back". No history of DVTs or PEs. No current blood thinning medications. Reports a throbbing sensation to his big toe. (Jaz Rosenberg) Patient is a 54-year-old male who presents emergency department complaining of right foot pain. Patient had a surgery on his right big toe yesterday where they fused it. Has been having some pain from the top of his right foot into the back of his calf. Thinks it is likely from the pain from his toe but does have a history of DVTs which is why presents for evaluation. Denies any fevers or chills. No other other acute complaints at this time. Presents for further evaluation. Patient is seen as a quick note. I evaluated the patient after he was placed in a room. (Paul Rice) - Related Data Home Medications Medication Instructions Recorded Confirmed Nitroglycerin 0.4 mg PO DIRECTED PRN 12/21/22 02/11/23 buPROPion HCL [buPROPion HCL XL] 300 mg PO QAM 12/28/22 02/11/23 Alirocumab [Praluent Pen] 75 mg SQ Q14D 02/08/23 02/11/23 [facility] Sleep [facility] 1 tab PO HS 02/08/23 02/11/23 Cyclobenzaprine [Flexeril] 10 mg PO HS 02/08/23 02/11/23 Gabapentin [Neurontin] 100 mg PO BID 02/08/23 02/11/23 Gabapentin [Neurontin] 100 mg PO BID 02/08/23 02/11/23 Ketorolac [Toradol] 10 mg PO Q6HR 02/08/23 02/11/23 Multivitamin [Multivitamins Adult 1 each PO DAILY 02/08/23 02/11/23 Gummies] OLANZapine 5 mg PO HS 02/08/23 02/11/23 cloNIDine HCL 0.05 mg PO QAM 02/08/23 02/11/23 cloNIDine HCL 0.15 mg PO HS 02/08/23 02/11/23 Previous Rx's Medication Instructions Recorded HYDROcodone/APAP 7.5-325MG [[place] 1 each PO Q6HR PRN #28 tab 02/16/23 7.5] Sennosides/Docusate Sodium 2 each PO DAILY PRN #30 tablet 02/16/23 [Senna-S 8.6-50 mg Tablet] Tamsulosin [Flomax] 0.4 mg PO PC-SUPPER #60 cap 02/16/23 cefaDROXiL [Duricef] 500 mg PO Q12HR 5 Days #10 cap 02/16/23 polyethylene glycoL 3350 [Miralax] 17 gm PO DAILY PRN #21 packet 02/16/23 Cyclobenzaprine HCl 10 mg PO TID PRN 7 Days #21 tab 02/19/23 Cyclobenzaprine [Flexeril] 5 mg PO TID PRN 5 Days #15 tablet 05/16/24 HYDROcodone/APAP 10-325MG [[place] 1 tab PO Q6HR PRN 3 Days #12 tab 05/16/24 10-325] Sulfamethox-Tmp 800-160Mg [Bactrim 1 tab PO Q12HR 7 Days #14 tab 05/16/24 DS 800-160 mg] Allergies Allergy/AdvReac Type Severity Reaction Status Date / Time sertraline HCl [From Zoloft] Allergy Unknown Anaphylaxis Verified 05/16/24 17:06 fluoxetine HCl [From Prozac] AdvReac Intermediate Disoriented, Verified 05/16/24 17:06 Verbally Violent buspirone [From BuSpar] AdvReac Unknown Verified 05/16/24 17:06 quetiapine [From Seroquel] AdvReac Unknown Verified 05/16/24 17:06 rosuvastatin [From Crestor] AdvReac Confusion Verified 05/16/24 17:06 venlafaxine [From Effexor] AdvReac Nausea Verified 05/16/24 17:06 Review of Systems ROS Other: All systems not noted in ROS Statement are negative. <Jaz Rosenberg - Last Filed: 05/16/24 17:16> ROS Other: All systems not noted in ROS Statement are negative. <Paul Rice - Last Filed: 05/16/24 21:16> ROS Statement: Those systems with pertinent positive or pertinent negative responses have been documented in the HPI. Review of Systems: CONST: Denies fever EYES: Denies blurry vision ENT: Denies nasal congestion C/V: Denies Chest pain RESP: Denies shortness of breath GI: Denies abdominal pain : Denies dysuria SKIN: Denies rash. MSK: Endorses right leg pain NEURO: Denies headache (Paul Rice) Past Medical History Past Medical History: Cancer, COPD, GERD/Reflux, Hearing Disorder / Deafness, Hyperlipidemia, Hypertension, Liver Disease, Musculoskeletal Disorder, Osteoarthritis (OA), Sleep Apnea/CPAP/BIPAP Additional Past Medical History / Comment(s): Coronary artery spasms, hx gout, chronic back pain, dizziness, hx. H Pylori, hiatal hernia, hx skin cancer, fatty liver, doens't use CPAP, occasional hand tremors, hx Covid 11/03, bilateral hearing aids. History of Any Multi-Drug Resistant Organisms: MRSA Date of last positivie culture/infection: 2014 MDRO Source:: from back surgery Past Surgical History: Back Surgery, Heart Catheterization, Orthopedic Surgery Additional Past Surgical History / Comment(s): Lumbar laminectomy with decompression and fusion L4-S1 with cell saver, titanuim hoda, screws and pins, left carpal tunnel surgery, EGD with biopsy of stomach for H Pylori, moles removed. Past Anesthesia/Blood Transfusion Reactions: Previous Problems w/ Anesthesia, Motion Sickness Additional Past Anesthesia/Blood Transfusion Reaction / Comment(s): With last surgery slow to wake up, clausterphobia. Past Psychological History: Anxiety, Depression, Schizophrenia Smoking Status: Current every day smoker Past Alcohol Use History: None Reported Past Drug Use History: None Reported - Past Family History Mother Family Medical History: Cancer, Deep Vein Thrombosis (DVT), Pulmonary Embolus Additional Family Medical History / Comment(s): Skin cancer. Heart problems. Father Family Medical History: Cancer Additional Family Medical History / Comment(s): Bone cancer. <Jaz Rosenberg - Last Filed: 05/16/24 17:16> General Exam Limitations: no limitations <Jaz Rosenberg - Last Filed: 05/16/24 17:16> <Paul Rice - Last Filed: 05/16/24 21:16> - General Exam Comments Initial Comments: Visual Physical Exam Vital signs reviewed General: Well-appearing, nontoxic, no acute distress. Head: Normocephalic, atraumatic Eyes: PERRLA, EOMI ENT: Airway patent Chest: Nonlabored breathing Skin: No visual rash, normal skin tone Neuro: Alert and oriented 3 Musculoskeletal: No gross abnormalities, splint to right foot/ankle (Jaz Rosenberg) General: Appears in no acute distress. HEAD: Appears in mild discomfort secondary to pain. EYES: EOMI ENT: Hearing grossly intact RESPIRATORY: No respiratory distress C/V: Peripheral pulses 2+ intact throughout. ABD: Nondistended EXT: Tenderness to palpation over the dorsal aspect of the right foot with a little bit of edema. Patient has postsurgical wound over the right big toe. Neurovascular intact. SKIN: No rashes or lesions observed on exposed skin. NEURO: Alert and oriented x 4. (Paul Rice) Course Vital Signs 05/16/24 05/16/24 17:02 20:05 Temperature 99.2 F 98.7 F Pulse Rate 84 68 Respiratory 20 18 Rate Blood Pressure 128/81 118/79 O2 Sat by Pulse 98 98 Oximetry Medical Decision Making <Jaz Rosenberg - Last Filed: 05/16/24 17:16> <Paul Rice - Last Filed: 05/16/24 21:16> - Medical Decision Making I performed the quick note portion of this chart. Electronically signed by Jaz Rosenberg PA-C (Jaz Rosenberg) Was pt. sent in by a medical professional or institution (FELICIA Cooper, [employer], urgent care, hospital, or assisted...) When possible be specific @ -No Did you speak to anyone other than the patient for history (EMS, parent, family, police, friend...)? What history was obtained from this source @ -No Did you review nursing and triage notes (agree or disagree)? Why? @ -I reviewed and agree with nursing and triage notes Were old charts reviewed (outside hosp., previous admission, EMS record, old EKG, old radiological studies, urgent care reports/EKG's, assisted records)? Report findings @ -No old charts were reviewed Differential Diagnosis (chest pain, altered mental status, abdominal pain women, abdominal pain men, vaginal bleeding, weakness, fever, dyspnea, syncope, headache, dizziness, GI bleed, back pain, seizure, CVA, palpatations, mental health, musculoskeletal)? @ -Differential Musculoskeletal Muscular strain, contusion, ligament sprain, fracture, arthritis, septic arthritis, bursitis, cellulitis, muscle spasm, nerve compression, DVT, arterial occlusion, herpes zoster, electrolyte abnormality, tumor.... This is not meant to be in all inclusive list EKG interpreted by me (3pts min.). @ -None done X-rays interpreted by me (1pt min.). @ -None done CT interpreted by me (1pt min.). @ -None done U/S interpreted by me (1pt. min.). @ -Venous duplex ultrasound negative for DVT What testing was considered but not performed or refused? (CT, X-rays, U/S, labs)? Why? @ -None What meds were considered but not given or refused? Why? @ -None Did you discuss the management of the patient with other professionals (professionals i.e. , PA, T[employer]RET LATHE TENDER, lab, RT, psych nurse, social service worker, pricing specialist, teacher, horticultural technical officer, upper caser)? Give summary @ -No Was smoking cessation discussed for >3mins.? @ -No Was critical care preformed (if so, how long)? @ -No Were there social determinants of health that impacted care today? How? (Homelessness, low income, unemployed, alcoholism, drug addiction, transportation, low edu. Level, literacy, decrease access to med. care, detention, rehab)? @ -No Was there de-escalation of care discussed even if they declined (Discuss DNR or withdrawal of care, Hospice)? DNR status @ -No What co-morbidities impacted this encounter? (DM, HTN, Smoking, COPD, CAD, Cancer, CVA, ARF, Chemo, Hep., AIDS, mental health diagnosis, sleep apnea, morbi d obesity)? @ -None Was patient admitted / discharged? Hospital course, mention meds given and route, prescriptions, significant lab abnormalities, going to OR and other pertinent info. @ -Based on the patient's presentation and physical exam, patient presents over concern for postop pain. Venous duplex ultrasound was obtained while patient was in triage and is negative for blood clot. I evaluate the patient when he is placed in room. Exam after taking down his dressing and a splint unremarkable. Mild erythema. Discussed with the patient and I will loosen the splint, we wrap it, and empirically treat the patient with antibiotics and provided with a prescription for pain medication. He was in agreement this plan. Recommended follow-up with the surgeon. Patient was in agreement this plan. I will provide the patient with a prescription for Bactrim, [place] 10. I instructed the patient to follow up with their PCP in the next 1-3 days. I explained that the patient should return to the emergency department if they experience any worsening symptoms. Strict return precautions were discussed with the patient. The patient expressed understanding of these instructions. I answered all questions that the patient had. The patient was discharged home in good condition with their prescriptions and follow up information. Undiagnosed new problem with uncertain prognosis? @ -No Drug Therapy requiring intensive monitoring for toxicity (Heparin, Nitro, Insulin, Cardizem)? @ -No Were any procedures done? @ -No Diagnosis/symptom? @ -Postoperative foot pain Acute, or Chronic, or Acute on Chronic? @ -Acute Uncomplicated (without systemic symptoms) or Complicated (systemic symptoms)? @ -Uncomplicated Side effects of treatment? @ -No Exacerbation, Progression, or Severe Exacerbation? @ -No Poses a threat to life or bodily function? How? (Chest pain, [place], MS, pneumonia, PE, COPD, DKA, ARF, appy, cholecystitis, CVA, Diverticulitis, Homicidal, Suicidal, threat to staff... and all critical care pts) @ -Unlikely (Paul Rice) Disposition <Jaz Rosenberg - Last Filed: 05/16/24 17:16> Is patient prescribed a controlled substance at d/c from ED?: Yes When asked, does pt state using other controlled substances?: Yes If prescribed controlled substance>3 days was MAPS reviewed?: Prescribed <3 Days If opioid is for acute pain is fill amount 7 days or less?: No If Rx opioid, was Start Talking consent form obtained?: Yes Time of Disposition: 19:05 <Paul Rice - Last Filed: 05/16/24 21:16> Clinical Impression: Post-op pain Disposition: HOME SELF-CARE Condition: Fair Instructions (If sedation given, give patient instructions): Metatarsalgia (DC) Prescriptions: Sulfamethox-Tmp 800-160Mg [Bactrim DS 800-160 mg] 1 tab PO Q12HR 7 Days #14 tab Cyclobenzaprine [Flexeril] 5 mg PO TID PRN 5 Days #15 tablet PRN Reason: Pain HYDROcodone/APAP 10-325MG [[place] 10-325] 1 tab PO Q6HR PRN 3 Days #12 tab PRN Reason: Pain Referrals: Lang Muro MD [Primary Care Provider] - 1-2 days
--- NOTE | 2024-05-16 18:24 | US ---
EXAMINATION TYPE: US venous doppler duplex LE RT DATE OF EXAM: 05/16/2024 5:46 PM COMPARISON: NONE CLINICAL INDICATION: Male, 54 years old with history of swelling; Patient states leg swelling after s urgery on leg. No thinners. No hx DVT SIDE PERFORMED: Right TECHNIQUE: The lower extremity deep venous system is examined utilizing real time linear array sonog mahendra with graded compression, color doppler sonography, and spectral doppler. VESSELS IMAGED: Common Femoral Vein Deep Femoral Vein Greater Saphenous Vein * Femoral Vein Popliteal Vein Small Saphenous Vein * Proximal Calf Veins (* superficial vessels) Right Leg: Appears negative for DVT IMPRESSION: Grayscale, color doppler, spectral doppler imaging performed of the deep veins of the lo wer extremities. There is normal flow, compressibility, vascular waveforms. [facility], , 05/16/2024 6:22 PM
[2024-05-16] MEDS: SULFAMETHOX-TMP 800-160MG 1 EACH TAB PO STA (19:13)
[2024-05-16] MEDS: HYDROmorphone 1 MG/ML 1 ML SYRINGE IM STA (19:13)
[2024-05-16 20:06] VITALS: BP 118/79; PULSE 68; RESP 18; TEMP 98.7
== END 2024-05-16 20:09 | disposition home or self-care (01) ==
LOC: EC 16:57
CPT/HCPCS: 96372; 99283

== ENCOUNTER → 2024-08-02 | Outpatient (CLI) | payer MEDICARE, OTHER ==
[2024-08-02 12:40] VITALS: BP 123/84; PULSE 81; RESP 16; TEMP 97.1
--- NOTE | 2024-08-02 15:15 | P.PAINPG ---
Objective - Vital Signs Vital signs: Vital Signs Temp 97.1 F L 08/02/24 12:37 Pulse 81 08/02/24 12:37 Resp 16 08/02/24 12:37 BP 123/84 08/02/24 12:37 Pulse Ox 97 08/02/24 12:37 FiO2 Intake & Output 08/01/24 08/02/24 08/02/24 18:59 06:59 18:59 Weight 68.039 kg PQRS Measure Charge Sheet Mode of Arrival: Ambulatory Comment: HISTORY OF PRESENT ILLNESS: A 54 yr old male w at side as a referral from Dr Estrada presents today w severe and chronic secondary to L4-S1 Laminectomy w Decompression & Titanium for evaluation. Pt states pain level is provoked at 8/10 in intensity, constant, localized in the lumbar spine, predominantly axial, sharp in character w occasional shooting pain towards the hips. Pain is provoked by walking/ standing/ sitting for periods > 20 min. Pain is alleviated by PT x 6 wks which ended in Feb 2024, physician guided home exercises 4-5 times weekly since Feb 2024, heat, medications (Tyl), repositioning and rest . Oswestry axial pain score at 26. PMH: OA, Skin CA, COPD, GERD, [place], CAD, Hyperlipidemia, HTN, Fatty Liver Disease, OBDULIA, Gout, HH, MDD/ Anxiety/ Schizophrenia/ Claustrophobia PSH: L4-S1 Laminectomy w Decompression & Titanium, Heart Catheterization, L CTR, EGD SH: Daily tobacco use, No ETOH use, No illicit drug use FH: Mo- DVT, PE, CA. Fa- Bone CA All: See list Meds: See list REVIEW OF ORGAN SYSTEMS: CONSTITUTIONAL: No fevers or chills. No recent weight loss. NEUROLOGICAL: + numbness and tingling along the distal extremities. No seizure disorders or headaches. MUSCULOSKELETAL: + pain PSYCHIATRIC: Denies current depression or suicidal thoughts. Physical Examinations : Constitutional : Cooperative , not in acute distress . Neurologic : Cranial nerve II to XII intact. No focal neurological deficits. Psychiatric : alert & oriented x 3. Matching mood & appropriate affect. Judgment & insight intact. Musculoskeletal : Cervical Spine Motor strength in the deltoid and biceps: Normal right side. Normal Left side Motor strength biceps and the wrist extensors: Normal right side . Normal left side Motor strength in the triceps muscle: Normal right side. Normal left side Deep tendon reflexes: Normal at the biceps. Normal at Brachioradialis. Normal at triceps Vertebral body tenderness to deep palpation over Cervical facet loading test: positive bilaterally Spurling test: positive bilaterally Neck distraction test: positive bilaterally Roya sign: positive bilaterally Lumbar spine Motor strength lower extremities ,thigh and legs 5/5 Right side , 5/5 Left side Deep tendon reflexes : Normal Knee Jerk. Normal Ankle Jerk Vertebral body tenderness over L2 Wick Test positive BL L2-L3 Lumbar facet Loading Test: positive Right / positive Left Range of motion of the lumbar spine Flexion 30 degrees, extension 10 degrees Straight Leg Raise test: Left/ Right positive at degrees Shira test: positive right / positive left. Severe tenderness over the Sacroiliac joint on the Right / Left sides Gaenslen test: positive bilaterally Seated flexion test: positive bilaterally. Sacral spine : Severe tenderness over the Sacroiliac joint: right side / left side Range of motion: Flexion of the lumbar spine <60 degrees Range of motion: Extension of the lumbar spine <20 degrees Gaenslen's Test positive Shira test: positive right side / left side Thigh Thrust Test Sacral Thrust Test Imaging: MRI non contrast lumbar spine from 02/13/24 reviewed Assessment/ Plan : L4-S1 Laminectomy w Decompression & Titanium Recommendation of EHATHER L2-L3 #1. Risks, benefits of procedure discussed and patient verbalized understanding. Admits to anti- coagulant use or medical history of diabetes. Protocol for discontinuation/ continuation of medications delilah procedure discussed. All questions answered. I have spent greater than 30 minutes on patient care today. Dr Echeverria was available by phone for the evaluation of this patient. The time was used to review the medical records including relevant urine studies and Prescription history (MAPs), review of the available imaging, evaluation and examination of the patient, coordination of care with the medical staff and if applicable referring physicians, as well as creation of the medical record - Pain Location Bilateral Lower Back Non-Pharmacological Interventions: Heat, Inactivity, Physical Therapy, Position/Reposition, Sitting PQRS Narrative: Smoking Status Former smoker Blood Pressure 123/84 Pain Intensity [Bilateral 8 Lower Back] Scale Used Numeric (1 - 10) Hx Alcohol Use (MH) No Home Medications: Ambulatory Orders Nitroglycerin 0.4 mg PO DIRECTED PRN 12/21/22 buPROPion HCL [buPROPion HCL XL] 300 mg PO QAM 12/28/22 Alirocumab [Praluent Pen] 75 mg SQ Q14D 02/08/23 [facility] Night[facility] Sleep Aid 1 tab PO HS 02/08/23 Ketorolac [Toradol] 10 mg PO Q6HR 02/08/23 Multivitamin [Multivitamins Adult Gummies] 1 each PO DAILY 02/08/23 OLANZapine 5 mg PO HS 02/08/23 cloNIDine HCL 0.05 mg PO QAM 02/08/23 cloNIDine HCL 0.15 mg PO HS 02/08/23 Sennosides/Docusate Sodium [Senna-S 8.6-50 mg Tablet] 2 each PO DAILY PRN #30 tablet 02/16/23 Tamsulosin [Flomax] 0.4 mg PO PC-SUPPER #60 cap 02/16/23 cefaDROXiL [Duricef] 500 mg PO Q12HR 5 Days #10 cap 02/16/23 polyethylene glycoL 3350 [Miralax] 17 gm PO DAILY PRN #21 packet 02/16/23 Sulfamethox-Tmp 800-160Mg [Bactrim DS 800-160 mg] 1 tab PO Q12HR 7 Days #14 tab 05/16/24 Controlled Substance Measures - Controlled Substance Measures Is patient prescribed a controlled substance at discharge?: No
== END ==
LOC: PNWHC3 12:17
PROVIDERS: ATTEND Specialist
DX: M96.1 Postlaminectomy syndrome, not elsewhere classified (principal); Z88.8 Allergy status to other drugs, medicaments and biological substances; Z87.891 Personal history of nicotine dependence
CPT/HCPCS: 99211

== ENCOUNTER 2024-08-31 10:57 | Day surgery (SDC) | payer MEDICARE, OTHER ==
[2024-08-28 15:28] VITALS: BMI 22.8
[~2024-08-31 10:57] MED LIST changes: -ACETAMINOPHEN TAB 500 MG TAB PO PRN; -GABAPENTIN 300 MG CAP PO PRN; +LACTATED RINGERS 1,000 ML IV SCH; -ONDANSETRON 4 MG/2 ML VIAL IVP PRN; -TRANEXAMIC 1,000 MG/100ML-NACL 1,000 MG in SALINE 1 100ML.BAG IVPB PRN
[2024-08-31] MEDS ORDERED: IOPAMIDOL M200 10 ML VIAL ONE (12:20)
[2024-08-31] MEDS ORDERED: methylPREDNISolone ACETATE 80 MG/ML 1 ML VIAL ONE (12:20)
--- NOTE | 2024-08-31 12:35 | P.PCN ---
Date of Procedure: 08/31/24 Procedure(s) Performed: PREOPERATIVE DIAGNOSIS: 1- Lumbar radiculopathy 2-Lumbar spondylosis with Facet arthropathy without myelopathy. 3-history of lumbar laminectomy and fusion at L3-S1. POSTOPERATIVE DIAGNOSIS: Same as preop diagnosis. PROCEDURE 1. Lumbar epidural steroid injection under fluoroscopic guidance at the L2-3 level. (Fluoroscopy imaging was available in radiology department) 2. Lumbar epidurogram. ANESTHESIA: Lidocaine 1% 3 and then only. EBL: Minimal PROCEDURE INDICATION: The patient with low back pain and radiculitis symptoms unresponsive to conservative treatment. Fluoroscopy was used to optimize visualization of the needle placement and to maximize safety. PROCEDURE DESCRIPTION / TECHNIQUE: The patient was seen and identified in the preoperative area. Risks, benefits, complications including but not limited to infections ,bleeding ,allergic reaction to the medications ,nerve damage and not complete pain releife , and alternatives were discussed with the patient. The patient agreed to proceed with the procedure and signed the consent, and vital signs were stable. Patient was taken to the OR and time out was completed. The patient was placed in the prone position on procedure table and a pillow was placed under the abdomen to reduce lumbar lordosis. The lumbosacral area was prepped and draped in the usual sterile fashion.ere closely monitored during the procedure. Vital signs was monitered during the entire procedure. Using anterior-posterior fluoroscopy, the L2-3 interlaminar space was identified and the skin over this site was marked and then infiltrated with 1% lidocaine subcutaneously. Subsequently, a 20-gauge Tuohy epidural needle was inserted and advanced toward the epidural space using the ``Loss of resistance technique and guided by AP and lateral fluoroscopy. The correct needle position in the epidural space was verified with the injection of 2 mL of the water soluble contrast dye Isovue 200 contrast and observing an excellent epidurogram with the epidural spread of the dye, after negative aspiration for blood and CSF and in the absence of paresthesias. Again after negative aspiration, a 6 ml mixture containing 80 mg of Depo-medrol ( Preservetive Free ), and 2 ml of preservative free Normal Saline, and 2 ml of preservative free lidocaine 1% solution was injected and a washout of epidurogram was seen. Needle was withdrawn intact, skin was cleansed, and bandages were applied. COMPLICATIONS: None DISPOSITION / PLANS: The patient was placed in a supine position and transferred to the recovery area in a stable condition for observation. There was no evidence of lower extremity motor or sensory deficit after the procedure. Patient was discharged from the recovery room after meeting discharge criteria. Home discharge instructions were given to the patient by the staff. The patient was reexamined prior to discharge. The patient will schedule a follow up in the clinic in 2-4 weeks.
[2024-08-31 12:41] VITALS: RESP 18
[2024-08-31 12:52] VITALS: BP 128/78; PULSE 68
--- NOTE | 2024-08-31 13:22 | FL ---
EXAMINATION TYPE: FL guided pain mgmt statistic DATE OF EXAM: 08/31/2024 12:38 PM COMPARISON: Pre Operative Images if available both CT/MRI or plain film CLINICAL INDICATION: Male, 54 years old with history of LESI; TECHNIQUE: FL guided pain mgmt statistic, multiple fluoroscopic images provided for procedure. Total fluoroscopy time: 5.6 seconds Total submitted images to PACS: 2 DAP: [id number] mGym2 Gycm2 uGym2 cGycm2 or equivalent. FINDINGS: Fluoroscopic images during injection for pain management demonstrate multilevel degeneration changes throughout the spine. No evidence for fracture. No acute process identified. IMPRESSION: 1. No evidence for intraoperative complication. 2. Please see the operative/procedural note for further details. [facility], , 08/31/2024 1:20 PM
== END 2024-08-31 13:00 | disposition home or self-care (01) ==
LOC: ORPAIN 10:57
PROVIDERS: ATTEND Specialist
DX: M47.26 Other spondylosis with radiculopathy, lumbar region (principal); Z88.8 Allergy status to other drugs, medicaments and biological substances
CPT/HCPCS: 62323; Q9966; J1010